=== PATIENT | female | born 1985 | race Caucasian/White ===

== ENCOUNTER 2017-08-19 08:31 | Emergency (ER) | payer OTHER ==
[2017-08-19] MEDS ORDERED: ONDANSETRON 4 MG/2 ML VIAL ONE (09:06)
[2017-08-19 09:56] LABS: Potassium 3.8 mEq/L (3.6-5.0)
[2017-08-19 09:59] LABS: Absolute Lymphocytes (CBC) 1.5 K/uL (0.7-4.9); Absolute Monocytes 0.5 K/uL (0.1-1.3); Absolute Neutrophil 6.3 K/uL (1.8-8.0); Basophils % 0.4 % (0-1.3); Eosinophils % 1.9 % (0-4.4); Hematocrit 36.3 % (36.0-45.0); Lymphocytes % 17.1 % (15.3-44.8); MCH 29.4 pg (27.0-35.0); MCV 88.2 fL (80-100); MPV 9.4 fL (7.6-11.3); Monocytes % 6.4 % (3.3-12.3); RBC Red Blood Cell Count 4.11 M/uL (3.86-4.86)
[2017-08-19] MEDS ORDERED: IBUPROFEN 400 MG TAB ONE (10:12)
--- NOTE | 2017-08-19 10:16 | ER ---
Nurse's Notes [facility] Name: Phoebe Diamond Age: 31 yrs Sex: Female : 1985 Arrival Date: 08/19/2017 Time: 08:38 Bed 16 Private MD: Unknown, Unknown Diagnosis: Insect bite (nonvenomous) of front wall of thorax-Right Upper Chest, infected;Nausea Presentation: 08/19 08:48 Presenting complaint: Patient states: stung by "large bug" Thursday 08/10. pulled out a large stinger. has felt sweats and chills since then. three days ago started getting dizzy, nausous, having diarrhea, and more sweats and chills. states the sting area is larger and slightly swollen. Transition of care: patient was not received from another setting of care. Onset of symptoms was August 10, 2017 at 06:00. Risk Assessment: Do you want to hurt yourself or someone else? Patient reports no desire to harm self or others. Initial Sepsis Screen: Does the patient meet any 2 criteria? No. Patient's initial sepsis screen is negative. Does the patient have a suspected source of infection? No. Patient's initial sepsis screen is negative. Care prior to arrival: Medication(s) given: benadryl. 08:48 Method Of Arrival: Ambulatory 08:48 Acuity: JES 3 Triage Assessment: 08:53 Bite description: bite sustained to right clavicle is pt was no bitten, was stung by an insect and they removed the stinger. was sustained 08/10 by insect unknown sting, not bitten, animal information: vaccination(s) is not applicable. General: Appears in no apparent distress. comfortable, Behavior is calm, cooperative, appropriate for age. Pain: Complains of pain in right clavicle Pain currently is 5 out of 10 on a pain scale. Pain began gradually. Neuro: No deficits noted. Cardiovascular: No deficits noted. Respiratory: Airway is patent Respiratory effort is even, unlabored, Breath sounds are clear bilaterally. Derm: Skin is intact, Skin is red, pt has small amount of swelling to R collar bone area. pt is sunburned equally on both sides of her chest. pt states she spent hours outside yesterday. Musculoskeletal: No signs and/or symptoms reported regarding the musculoskeletal system. Circulation, motion, and sensation intact. 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 - Social history:: Smoking status: Patient/guardian denies using tobacco, Patient/guardian denies using alcohol, street drugs. - Ebola Screening: : Patient negative for fever greater than or equal to 101.5 degrees Fahrenheit, and additional compatible Ebola Virus Disease symptoms Patient denies exposure to infectious person Patient denies travel to an Ebola-affected area in the 21 days before illness onset No symptoms or risks identified at this time. Screenin:00 Abuse screen: Denies threats or abuse. Denies injuries from another. Nutritional screening: No deficits noted. Tuberculosis screening: No symptoms or risk factors identified. Fall Risk None identified. Assessment: 09:00 Reassessment: Patient appears in no apparent distress at this time. No changes from previously documented assessment. Patient and/or family updated on plan of care and expected duration. Pain level reassessed. 09:37 Reassessment: Patient appears in no apparent distress at this time. No changes from previously documented assessment. Patient and/or family updated on plan of care and expected duration. Pain level reassessed. 10:33 Reassessment: Patient appears in no apparent distress at this time. Patient and/or family updated on plan of care and expected duration. Pain level reassessed. Patient is alert, oriented x 3, equal unlabored respirations, skin warm/dry/pink. Patient states feeling better. Patient states symptoms have improved. Vital Signs: 08:53 BP 137 / 90; Pulse 84; Resp 16; Temp 98.1(O); Pulse Ox 99% on R/A; Weight 81.65 kg; Height 5 ft. 6 in. (167.64 cm); Pain 6/10; 10:33 BP 121 / 78; Pulse 75; Resp 18; Temp 98.3; Pulse Ox 99% on R/A; Pain 3/10; ch 08:53 Body Mass Index 29.05 (81.65 kg, 167.64 cm) ED Course: 08:38 Patient arrived in ED. jb7 08:39 Unknown, Unknown is Private Physician. jb7 08:42 Tara Warner RN is Primary Nurse. ch 08:49 Adolfo Bruno PA is PHCP. cp 08:49 Connor Arenas MD is Attending Physician. cp 08:50 Triage completed. ch 08:53 Arm band placed on left wrist. Patient placed in an exam room, on a stretcher, on pulse ch oximetry. 09:00 Patient has correct armband on for positive identification. Placed in gown. Bed in low ch position. Call light in reach. Side rails up X 1. Pulse ox on. NIBP on. 09:00 I remote coders examination of pt upper chest area. PA does not assess or touch pt breasts. ch pt is only exposed in upper chest area. 09:37 Urine collected: clean catch specimen. Inserted saline lock: 18 gauge in right ch antecubital area, using aseptic technique. Blood collected. 10:33 IV discontinued, intact, bleeding controlled, No redness/swelling at site. Pressure ch dressing applied. Administered Medications: 09:30 Drug: Zofran 4 mg Route: IVP; Site: right antecubital; ch 10:32 Follow up: Response: No adverse reaction; Marked relief of symptoms ch 10:10 Drug: Ibuprofen 800 mg Route: PO; ch 10:32 Follow up: Response: No adverse reaction; Marked relief of symptoms ch 10:33 Not Given (other route used): Zofran 4 mg PO once ch Outcome: 10:15 Discharge ordered by MD. cp 10:33 Discharged to home ambulatory, with family. ch 10:33 Condition: stable 10:33 Discharge instructions given to patient, family, Instructed on discharge instructions, follow up and referral plans. medication usage, Demonstrated understanding of instructions, follow-up care, medications, Prescriptions given X 3. 10:34 Patient left the ED. ch Signatures: Tara Warner RN RN ch Adolfo Bruno PA PA cp Bryant, Jason jb7 Corrections: (The following items were deleted from the chart) 09:03 09:00 No provider procedures requiring assistance completed. [facility]
--- NOTE | 2017-08-19 10:16 | EDPHYS ---
Physician Documentation [facility] Name: Phoebe Diamond Age: 31 yrs Sex: Female : 1985 Arrival Date: 08/19/2017 Time: 08:38 Bed 16 Private MD: Unknown, Unknown ED Physician Connor Arenas HPI: 08/19 09:00 This 31 yrs old Female presents to ER via Ambulatory with complaints of cp Insect Bite, Nausea, Dizziness. 09:00 the patient presents with a swollen area of the right upper chest. cp 09:00 Description: erythematous, swollen, warm. Onset: The symptoms/episode began/occurred cp 08-10-2017. Possible cause(s): insect sting. Associated signs and symptoms: Pertinent positives: erythema, nausea, dizziness, Pertinent negatives: discharge, drainage. Associated signs and symptoms: Pertinent positives: chills. Severity of symptoms: in the emergency department the symptoms are actually worse, over past 3 days. 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 - Social history:: Smoking status: Patient/guardian denies using tobacco, Patient/guardian denies using alcohol, street drugs. - Ebola Screening: : Patient negative for fever greater than or equal to 101.5 degrees Fahrenheit, and additional compatible Ebola Virus Disease symptoms Patient denies exposure to infectious person Patient denies travel to an Ebola-affected area in the 21 days before illness onset No symptoms or risks identified at this time. ROS: 09:05 Constitutional: Positive for chills, Negative for fever, poor PO intake. cp 09:05 Eyes: Negative for injury, pain, redness, and discharge. cp 09:05 ENT: Negative for drainage from ear(s), ear pain, sore throat, difficulty swallowing, difficulty handling secretions. 09:05 Neck: Negative for pain with movement, pain at rest, stiffness, swollen nodes. 09:05 Cardiovascular: Negative for chest pain, edema, palpitations. 09:05 Respiratory: Negative for cough, shortness of breath, wheezing. 09:05 Abdomen/GI: Positive for nausea, Negative for abdominal pain, vomiting, diarrhea, constipation. 09:05 Skin: Positive for erythema, swelling, of the upper chest, insect bite right upper chest, Negative for diaphoresis. 09:05 Neuro: Negative for altered mental status, headache, weakness. 09:05 All other systems are negative. Exam: 09:12 Constitutional: The patient appears in no acute distress, alert, awake, non-toxic, well cp developed, well nourished. 09:12 Head/Face: Normocephalic, atraumatic. cp 09:12 Eyes: Pupils equal round and reactive to light, extra-ocular motions intact. Lids and lashes normal. Conjunctiva and sclera are non-icteric and not injected. Cornea within normal limits. Periorbital areas with no swelling, redness, or edema. ENT: Nares patent. No nasal discharge, no septal abnormalities noted. Tympanic membranes are normal and external auditory canals are clear. Oropharynx with no redness, swelling, or masses, exudates, or evidence of obstruction, uvula midline. Mucous membranes moist. 09:12 Neck: ROM/movement: is normal, is supple, no range of motions limitations, no meningismus, no nuchal rigidity. 09:12 Chest/axilla: Inspection: abscess, is not appreciated, noted erythema, skin warm to cp touch of upper chest. 09:12 Cardiovascular: Rate: normal, Rhythm: regular. cp 09:12 Respiratory: the patient does not display signs of respiratory distress, Respirations: normal, no use of accessory muscles, no retractions, no splinting, no tachypnea, labored breathing, is not present, Breath sounds: are clear throughout, no decreased breath sounds, no stridor, no wheezing. 09:12 Abdomen/GI: Inspection: abdomen appears normal, Bowel sounds: active, all quadrants, Palpation: abdomen is soft and non-tender, in all quadrants, rebound tenderness, is not appreciated, voluntary guarding, is not appreciated, involuntary guarding, is not appreciated. 09:12 Back: pain, is absent, ROM is normal. 09:12 Musculoskeletal/extremity: Exam is negative for calf tenderness, decreased range of motion, deformity, injury. 09:12 Neuro: Orientation: to person, place \T\ time. Mentation: lucid, able to follow commands, Motor: moves all fours, strength is normal, Sensation: no obvious gross deficits, Gait: is steady, at a normal pace, without difficulty. Vital Signs: 08:53 BP 137 / 90; Pulse 84; Resp 16; Temp 98.1(O); Pulse Ox 99% on R/A; Weight 81.65 kg; ch Height 5 ft. 6 in. (167.64 cm); Pain 6/10; 10:33 BP 121 / 78; Pulse 75; Resp 18; Temp 98.3; Pulse Ox 99% on R/A; Pain 3/10; ch 08:53 Body Mass Index 29.05 (81.65 kg, 167.64 cm) ch MDM: 08:49 Patient medically screened. cp 10:00 Differential diagnosis: abscess, allergic reaction, cellulitis, insect bite, sunburn. cp 10:14 Data reviewed: vital signs, nurses notes, lab test result(s). cp 10:14 Counseling: I had a detailed discussion with the patient and/or guardian regarding: the cp historical points, exam findings, and any diagnostic results supporting the discharge/admit diagnosis, lab results, the need for outpatient follow up, a family practitioner, to return to the emergency department if symptoms worsen or persist or if there are any questions or concerns that arise at home. Response to treatment: the patient's symptoms have mildly improved after treatment, and as a result, I will discharge patient. 08/19 08:58 Order name: CBC with Diff; Complete Time: 10:10 cp 08/19 10:10 Interpretation: Normal except: JAZMIN% 74.2. cp 08/19 08:58 Order name: BMP; Complete Time: 10:10 cp 08/19 10:10 Interpretation: Normal except: GFR 86. cp 08/19 09:01 Order name: Magnesium; Complete Time: 10:10 cp 08/19 09:51 Order name: Urine Dipstick--Ancillary (enter results) bd 08/19 09:51 Order name: Urine --Ancillary (enter results) bd 08/19 08:58 Order name: Urine Dipstick-Ancillary (obtain specimen); Complete Time: 09:38 cp 08/19 08:58 Order name: Urine Test (obtain specimen); Complete Time: 09:38 cp Administered Medications: 09:30 Drug: Zofran 4 mg Route: IVP; Site: right antecubital; ch 10:32 Follow up: Response: No adverse reaction; Marked relief of symptoms ch 10:10 Drug: Ibuprofen 800 mg Route: PO; ch 10:32 Follow up: Response: No adverse reaction; Marked relief of symptoms ch 10:33 Not Given (other route used): Zofran 4 mg PO once ch Disposition: 13:36 Co-signature as Attending Physician, Connor Arenas MD. rn 08/20 07:17 Co-signature as Attending Physician, Connor Arenas MD. rn Disposition: 08/19/17 10:15 Discharged to Home. Impression: Insect bite (nonvenomous) of front wall of thorax - Right Upper Chest, infected, Nausea. - Condition is Stable. - Discharge Instructions: Cellulitis, Nausea, Adult. - Prescriptions for Ibuprofen 800 mg Oral Tablet - take 1 tablet by ORAL route every 8 hours As needed take with food; 30 tablet. Keflex 500 mg Oral Capsule - take 1 capsule by ORAL route every 6 hours for 10 days; 40 capsule. Zofran 4 mg Oral Tablet - take 1 tablet by ORAL route every 12 hours As needed; 20 tablet. - Work release form, Medication Reconciliation Form, Thank You Letter, Antibiotic Education, Prescription Opioid Use form. - Follow up: Private Physician; When: 48 Hours; Reason: Recheck today's complaints. - Problem is new. - Symptoms have improved. Signatures: Dispatcher [employer] Tara Lamb RN RN Connor Quintana MD MD rn Page, Corey, PA PA cp Corrections: (The following items were deleted from the chart) 08/19 10:34 10:15 08/19/2017 10:15 Discharged to Home. Impression: Insect bite (nonvenomous) of ch front wall of thorax - Right Upper Chest, infected; Nausea. Condition is Stable. Forms are Medication Reconciliation Form, Thank You Letter, Antibiotic Education, Prescription Opioid Use. Follow up: Private Physician; When: 48 Hours; Reason: Recheck today's complaints. Problem is new. Symptoms have improved. cp
[2017-08-19 10:37] VITALS: O2SAT 99
[2017-08-19 10:38] VITALS: BP 121/78; TEMP 98.3
[2017-08-19 12:02] LABS: Urine Blood NEGATIVE (NEG); Urine Glucose NEGATIVE (NEG); Urine Protein NEGATIVE (NEG)
== END 2017-08-19 10:34 | disposition home or self-care (01) ==
LOC: ER 08:31
DX: S20.361A Insect bite (nonvenomous) of right front wall of thorax, initial encounter (principal); L03.313 Cellulitis of chest wall; Z91.048 Other nonmedicinal substance allergy status; M10.9 Gout, unspecified; I10 Essential (primary) hypertension; Z87.442 Personal history of urinary calculi; W57.XXXA Bitten or stung by nonvenomous insect and other nonvenomous arthropods, initial encounter; Y92.019 Unspecified place in single-family (private) house as the place of occurrence of the external cause; R11.0 Nausea
CPT/HCPCS: 36415; 80048; 81003; 81025; 83735; 85025; 96374; 99284; J2405

== ENCOUNTER 2017-11-23 17:06 | Emergency (ER) | payer OTHER, SELFPAY ==
[2017-11-23 18:00] LABS: Absolute Lymphocytes (CBC) 2.5 K/uL (0.7-4.9); Absolute Monocytes 0.6 K/uL (0.1-1.3); Absolute Neutrophil 3.6 K/uL (1.8-8.0); Basophils % 0.9 % (0-1.3); Eosinophils % 3.4 % (0-4.4); Hematocrit 38.6 % (36.0-45.0); Lymphocytes % 36.1 % (15.3-44.8); MCH 29.6 pg (27.0-35.0); MPV 9.4 fL (7.6-11.3); RBC Red Blood Cell Count 4.44 M/uL (3.86-4.86)
[2017-11-23 18:11] LABS: Protime INR 1.05
[2017-11-23 18:14] LABS: Magnesium 2.2 mg/dL (1.8-2.4); Potassium 3.8 mmol/L (3.5-5.1)
--- NOTE | 2017-11-23 18:20 | RAD REPORT ---
EXAM DESCRIPTION: CT - Head Brain Wo Cont - 11/23/2017 6:02 pm CLINICAL HISTORY: Headache, weakness, dizziness COMPARISON: CT head November 2015 TECHNIQUE: Axial 5 mm thick images of the head were obtained without IV contrast. All CT scans are performed using dose optimization technique as appropriate and may include automated exposure control or mA/KV adjustment according to patient size. FINDINGS: No intracranial hemorrhage, mass, edema or shift of mid-line structures. No acute infarcti on changes seen. No abnormal extra-axial fluid collections. Ventricles are normal. Mastoid air cells are clear. Paranasal sinuses are clear except for left side sphenoid sinus mucosal thickening. No acute bony findings. IMPRESSION: Negative non-contrast CT head examination for acute finding. Mucosal thickening seen in a small left-sided sphenoid sinus. No intracranial changes from 2016.
[2017-11-23] MEDS ORDERED: ONDANSETRON 4 MG/2 ML VIAL ONE (18:24)
[2017-11-23] MEDS ORDERED: METOCLOPRAMIDE 10 MG/2mL INJ ONE (18:25)
[2017-11-23] MEDS ORDERED: DEXAMETHASONE 4 MG/ML VIAL ONE (18:26)
[2017-11-23 19:02] LABS: Urine Blood NEGATIVE (NEG); Urine Glucose NEGATIVE (NEG); Urine Protein NEGATIVE (NEG); Urine Specific Gravity 1.025 (1.005-1.030)
--- NOTE | 2017-11-23 19:30 | RAD REPORT ---
EXAM DESCRIPTION: CT - Head angio - 11/23/2017 7:07 pm CLINICAL HISTORY: Headache COMPARISON: CT head same date TECHNIQUE: During dynamic enhancement using nonionic IV contrast, axial 1 millimeter thick images of the head were obtained. Sagittal and coronal reformatted images were generated using maximum intensi ty projection protocol and reviewed FINDINGS: Distal vertebral artery and basilar artery show no suspicious findings. No suspicious find ing in the posterior cerebral artery distributions. From skullbase to determine a [place] the bilateral internal carotid arteries show no dissection or acute finding. No aneurysm or vascular malformation. Anterior and middle cerebral artery distribution show no suspicious findings. Major venous sinuses show no thrombosis or other suspicious finding. IMPRESSION: Negative CTA head examination.
--- NOTE | 2017-11-23 20:21 | EDPHYS ---
Physician Documentation [facility] Name: Phoebe Diamond Age: 32 yrs Sex: Female : 1985 Arrival Date: 11/23/2017 Time: 17:07 Bed 26 Private MD: GRICELDA RHODES ED Physician Connor Arenas HPI: 11/23 17:46 This 32 yrs old Female presents to ER via Ambulatory with complaints of cp Dizziness, Headache, Fall. 17:50 The patient complains of pain to the left rastafarian and left temporal area and left cp frontal area. 17:50 The patient describes the headache as constant. Onset: The symptoms/episode cp began/occurred yesterday. Associated signs and symptoms: Pertinent positives: dizziness, Photophobia Pertinent negatives: altered mental status, fever, neck stiffness, paresthesias, sinus congestion, sinus tenderness, vision loss, weakness. Severity of symptoms: in the emergency department the pain a " 10" out of "10". Headache History: The patient has had previous headaches and this one is more severe than previous episodes. 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 - Social history:: Smoking status: Patient/guardian denies using tobacco. - Ebola Screening: : Patient denies travel to an Ebola-affected area in the 21 days before illness onset. ROS: 17:53 Constitutional: Negative for body aches, chills, fever, poor PO intake. cp 17:53 Eyes: Positive for photophobia, Negative for discharge, redness, vision loss. cp 17:53 ENT: Negative for drainage from ear(s), ear pain, sinus congestion, sinus pain, difficulty swallowing, difficulty handling secretions. 17:53 Neck: Negative for pain with movement, pain at rest, stiffness, swollen nodes, tenderness. 17:53 Cardiovascular: Negative for chest pain, edema, palpitations. 17:53 Respiratory: Negative for cough, shortness of breath, wheezing. 17:53 Abdomen/GI: Negative for abdominal pain, vomiting, diarrhea, constipation, anorexia, black/tarry stool, rectal bleeding. 17:53 Back: Negative for pain at rest, pain with movement. 17:53 : Negative for urinary symptoms, flank pain. 17:53 Skin: Negative for cellulitis, rash. 17:53 Neuro: Positive for dizziness, headache, Negative for altered mental status, numbness, weakness. 17:53 All other systems are negative. Exam: 18:00 Constitutional: The patient appears in no acute distress, alert, awake, cp non-diaphoretic, non-toxic, well developed, well nourished. 18:00 Head/Face: Normocephalic, atraumatic. Eyes: Pupils equal round and reactive to light, cp extra-ocular motions intact. Lids and lashes normal. Conjunctiva and sclera are non-icteric and not injected. Cornea within normal limits. Periorbital areas with no swelling, redness, or edema. ENT: Nares patent. No nasal discharge, no septal abnormalities noted. Tympanic membranes are normal and external auditory canals are clear. Oropharynx with no redness, swelling, or masses, exudates, or evidence of obstruction, uvula midline. Mucous membranes moist. Neck: Trachea midline, no thyromegaly or masses palpated, and no cervical lymphadenopathy. Supple, full range of motion without nuchal rigidity, or vertebral point tenderness. No Meningismus. Chest/axilla: Normal chest wall appearance and motion. Nontender with no deformity. No lesions are appreciated. 18:00 Cardiovascular: Rate: normal, Rhythm: regular, Pulses: Pulses are 2+ in right radial artery and left radial artery. Edema: is not appreciated, JVD: is not appreciated. 18:00 Respiratory: the patient does not display signs of respiratory distress, Respirations: normal, no use of accessory muscles, no retractions, no splinting, no tachypnea, labored breathing, is not present, Breath sounds: are clear throughout, no decreased breath sounds, no stridor, no wheezing. 18:00 Abdomen/GI: Inspection: abdomen appears normal, Bowel sounds: active, all quadrants, Palpation: abdomen is soft and non-tender, in all quadrants. 18:00 Back: pain, is absent, ROM is normal. 18:00 Skin: cellulitis, is not appreciated, no rash present. 18:00 Neuro: Orientation: to person, place \\T\\ time. Mentation: lucid, able to follow commands, Cerebellar function: Romberg testing is negative, normal finger to nose testing, Motor: moves all fours, strength is normal, Sensation: is normal. 18:22 ECG was reviewed by the Attending Physician. cp Vital Signs: 17:20 BP 155 / 106; Pulse 75; Resp 18; Temp 97.8; Pulse Ox 100% on R/A; Weight 82.55 kg (R); aj1 Height 5 ft. 6 in. (167.64 cm) (R); Pain 10/10; 17:58 BP 163 / 103 Supine; Pulse 83; rv 17:58 BP 171 / 105 Sitting; Pulse 63; rv 17:58 BP 177 / 111 Standing; Pulse 64; rv 18:42 BP 128 / 79; Pulse 63; Pulse Ox 99% on R/A; rv 19:15 BP 169 / 116; Pulse 70; Pulse Ox 100% ; rv 20:29 BP 134 / 99; Pulse 69; Pulse Ox 98% on R/A; rv 17:20 Body Mass Index 29.38 (82.55 kg, 167.64 cm) aj1 MDM: 17:34 Patient medically screened. cp 18:00 Differential diagnosis: cluster headache, cerebral vascular accident, hyponatremia, cp intracerebral hemorrhage, meningitis, meningoencephalitis, migraine, neoplasm, otitis, sinusitis, subarachnoid bleed, tension headache. 20:19 Data reviewed: vital signs, nurses notes, lab test result(s), radiologic studies, CT cp scan. 20:19 Counseling: I had a detailed discussion with the patient and/or guardian regarding: the cp historical points, exam findings, and any diagnostic results supporting the discharge/admit diagnosis, lab results, radiology results, to return to the emergency department if symptoms worsen or persist or if there are any questions or concerns that arise at home. Counseling: I had a detailed discussion with the patient and/or guardian regarding: the presence of at least one elevated blood pressure reading (>120/80) during this emergency department visit, the need for outpatient follow up, a family practitioner. Response to treatment: the patient's symptoms have markedly improved after treatment. ED course: VSS. Headache markedly improved. Blood pressure improved. Will discharge to home for continued monitoring. 11/23 17:45 Order name: BMP cp 11/23 17:45 Order name: CBC with Diff cp 11/23 17:45 Order name: PT-INR cp 11/23 17:45 Order name: Ptt, Activated cp 11/23 17:45 Order name: Magnesium cp 11/23 17:46 Order name: Basic Metabolic Panel; Complete Time: 18:21 EDMS 11/23 17:44 Order name: CT Head Brain wo Cont; Complete Time: 18:21 cp 11/23 18:22 Interpretation: Report reviewed. cp 11/23 17:46 Order name: CBC with Automated Diff; Complete Time: 18:21 EDMS 11/23 17:46 Order name: Protime (+INR); Complete Time: 18:21 EDMS 11/23 17:46 Order name: PTT, Activated Partial Thromb; Complete Time: 18:21 EDMS 11/23 17:46 Order name: Magnesium; Complete Time: 18:21 EDMS 11/23 18:42 Order name: Head angio; Complete Time: 19:42 EDMS 11/23 19:43 Interpretation: Report reviewed. cp 11/23 18:45 Order name: Urine Dipstick--Ancillary (enter results); Complete Time: 19:42 bd 11/23 19:42 Interpretation: Normal except: UESTR TRACE. cp 11/23 18:45 Order name: Urine --Ancillary (enter results); Complete Time: 19:42 bd 11/23 17:44 Order name: Urine Dipstick-Ancillary (obtain specimen); Complete Time: 18:16 cp 11/23 17:44 Order name: Urine Test (obtain specimen); Complete Time: 18:16 cp 11/23 17:44 Order name: Orthostatics; Complete Time: 18:00 cp 11/23 17:44 Order name: EKG; Complete Time: 17:45 cp 11/23 17:44 Order name: EKG - Nurse/Tech; Complete Time: 18:00 cp 11/23 17:45 Order name: IV; Complete Time: 17:50 cp EC:22 Rate is 56 beats/min. Rhythm is regular. OK interval is normal. QRS interval is normal. cp QT interval is normal. Interpreted by me. Reviewed by me. Administered Medications: 18:00 Drug: NS 0.9% 1000 ml Route: IV; Rate: 1 bolus; Site: left forearm; rv 18:38 Drug: Decadron - Dexamethasone 10 mg Route: IVP; Site: right forearm; rv 19:52 Follow up: Response: No adverse reaction rv 18:39 Drug: Reglan 20 mg Route: IVP; Site: right forearm; rv 20:27 Follow up: Response: No adverse reaction rv 18:39 Drug: Zofran 4 mg Route: IVP; Site: right forearm; rv 20:27 Follow up: Response: No adverse reaction rv 20:01 Not Given (Physician Discretion): cloNIDine 0.1 mg PO once cp 20:01 Not Given (Physician Discretion): Norvasc 10 mg PO once cp 20:27 Drug: Meclizine 25 mg Route: PO; rv 20:28 Follow up: Response: Medication administered at discharge. rv Disposition: 21:00 Chart complete. 11/24 07:00 Co-signature as Attending Physician, Connor Arenas MD. rn Disposition: 11/23/17 20:20 Discharged to Home. Impression: Dizziness and giddiness, Headache. - Condition is Stable. - Discharge Instructions: Dizziness, General Headache Without Cause, How to Take Your Blood Pressure, [id number], Form - Blood Pressure Record Sheet. - Prescriptions for Fiorinal 50- 325-40 mg Oral Capsule - take 1 capsule by ORAL route every 4 hours As needed - not to exceed 6 capsules per day; 20 capsule. Meclizine 25 mg Oral Tablet - take 1 tablet by ORAL route every 8 hours As needed; 30 tablet. Zofran 4 mg Oral Tablet - take 1 tablet by ORAL route every 12 hours As needed; 20 tablet. - Medication Reconciliation Form, Thank You Letter, Antibiotic Education, Prescription Opioid Use form. - Follow up: GRICELDA RHODES; When: Tomorrow; Reason: Recheck today's complaints. - Problem is new. - Symptoms have improved. Signatures: Dispatcher [employer] Bárbara Deluca RN RN aj1 Connor Arenas MD MD rn Page, Corey, PA PA cp Vicente, Ronaldo, RN RN rv Corrections: (The following items were deleted from the chart) 11/23 20:31 20:20 11/23/2017 20:20 Discharged to Home. Impression: Dizziness and giddiness; rv Headache. Condition is Stable. Forms are Medication Reconciliation Form, Thank You Letter, Antibiotic Education, Prescription Opioid Use. Follow up: GRICELDA RHODES; When: Tomorrow; Reason: Recheck today's complaints. Problem is new. Symptoms have improved. cp
--- NOTE | 2017-11-23 20:21 | ER ---
Nurse's Notes [facility] Name: Hayden Diamond Age: 32 yrs Sex: Female : 1985 Arrival Date: 11/23/2017 Time: 17:07 Bed 26 Private MD: GRICELDA RHODES Diagnosis: Dizziness and giddiness;Headache Presentation: 11/23 17:16 Presenting complaint: Patient states: She has been feeling dizzy for the past week and aj1 a half and she has had a headache since 1500 yesterday. Patient denies any head injury. Patient states that she has fallen twice today because of the dizziness. Denies N/V/D. Reports blurred vision. Denies weakness. Site Leader are equal bilaterally, Gait is steady. Transition of care: patient was not received from another setting of care. Onset of symptoms was November 22, 2017 at 15:00. Risk Assessment: Do you want to hurt yourself or someone else? Patient reports no desire to harm self or others. Initial Sepsis Screen: Does the patient meet any 2 criteria? No. Patient's initial sepsis screen is negative. Does the patient have a suspected source of infection? No. Patient's initial sepsis screen is negative. Care prior to arrival: None. 17:16 Method Of Arrival: Ambulatory aj 17:16 Acuity: JES 3 aj1 Triage Assessment: 17:20 Headache History: Denies prior headaches. General: Appears in no apparent distress. aj1 uncomfortable, Behavior is calm, cooperative, appropriate for age. Pain: Complains of pain in left frontal area, left temporal area and left jehovah's witness Pain does not radiate. Pain currently is 10 out of 10 on a pain scale. Pain began 1 day ago. Also complains of photophobia, sleeplessness. Neuro: Level of Consciousness is awake, alert, obeys commands, Oriented to person, place, time, situation, Site Leader are equal bilaterally Moves all extremities. Full function Gait is steady, Speech is normal, Facial symmetry appears normal, Reports blurred vision dizziness, headache. Cardiovascular: Patient's skin is warm and dry. Respiratory: Airway is patent Respiratory effort is even, unlabored, Respiratory pattern is regular, symmetrical. 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 - Social history:: Smoking status: Patient/guardian denies using tobacco. - Ebola Screening: : Patient denies travel to an Ebola-affected area in the 21 days before illness onset. Screenin:30 Abuse screen: Denies threats or abuse. Denies injuries from another. rv 17:30 Nutritional screening: No deficits noted. Tuberculosis screening: No symptoms or risk rv factors identified. Fall Risk None identified. Assessment: 17:30 General: Appears in no apparent distress. uncomfortable, Behavior is calm, cooperative. rv 17:30 Pain: Complains of pain in head. Neuro: Level of Consciousness is awake, alert, obeys rv commands, Oriented to person, place, time, situation. Cardiovascular: Capillary refill < 3 seconds. Respiratory: Airway is patent. GI: No signs and/or symptoms were reported involving the gastrointestinal system. : No signs and/or symptoms were reported regarding the genitourinary system. EENT: No signs and/or symptoms were reported regarding the EENT system. Derm: Skin is intact. 18:42 Reassessment: Patient appears in no apparent distress at this time. Patient and/or rv family updated on plan of care and expected duration. Pain level reassessed. Patient is alert, oriented x 3, equal unlabored respirations, skin warm/dry/pink. 19:16 Reassessment: Patient appears in no apparent distress at this time. Patient and/or rv family updated on plan of care and expected duration. Pain level reassessed. Patient is alert, oriented x 3, equal unlabored respirations, skin warm/dry/pink. Vital Signs: 17:20 BP 155 / 106; Pulse 75; Resp 18; Temp 97.8; Pulse Ox 100% on R/A; Weight 82.55 kg (R); aj1 Height 5 ft. 6 in. (167.64 cm) (R); Pain 10/10; 17:58 BP 163 / 103 Supine; Pulse 83; rv 17:58 BP 171 / 105 Sitting; Pulse 63; rv 17:58 BP 177 / 111 Standing; Pulse 64; rv 18:42 BP 128 / 79; Pulse 63; Pulse Ox 99% on R/A; rv 19:15 BP 169 / 116; Pulse 70; Pulse Ox 100% ; rv 20:29 BP 134 / 99; Pulse 69; Pulse Ox 98% on R/A; rv 17:20 Body Mass Index 29.38 (82.55 kg, 167.64 cm) aj1 ED Course: 17:07 Patient arrived in ED. sb2 17:08 GRICELDA RHODES is Private Physician. sb2 17:19 Triage completed. aj1 17:20 Arm band placed on Patient placed in waiting room. aj1 17:30 Patient has correct armband on for positive identification. Bed in low position. Call rv light in reach. Side rails up X 1. Adult w/ patient. Pulse ox on. NIBP on. 17:34 Adolfo Bruno PA is PHCP. cp 17:34 Connor Arenas MD is Attending Physician. cp 18:00 Inserted saline lock: 20 gauge in right forearm, using aseptic technique. rv 18:01 CT Head Brain wo Cont In Process Unspecified. EDMS 18:02 CT completed. Patient tolerated procedure well. Patient moved back from CT. bq 18:15 Urine collected: clean catch specimen, clear, hayden colored, Amount Voided: 60mL. jp3 18:50 Urine --Ancillary (enter results) Sent. jp3 18:50 Urine Dipstick--Ancillary (enter results) Sent. jp3 19:08 CT completed. Patient tolerated procedure well. Patient moved back from CT. bq 19:08 Head angio In Process Unspecified. EDMS 20:20 GRICELDA RHODES is Referral Physician. cp 20:29 Magnesium Sent. rv 20:31 IV discontinued, bleeding controlled, No redness/swelling at site. Pressure dressing rv applied. 20:31 No provider procedures requiring assistance completed. rv Administered Medications: 18:00 Drug: NS 0.9% 1000 ml Route: IV; Rate: 1 bolus; Site: left forearm; rv 18:38 Drug: Decadron - Dexamethasone 10 mg Route: IVP; Site: right forearm; rv 19:52 Follow up: Response: No adverse reaction rv 18:39 Drug: Reglan 20 mg Route: IVP; Site: right forearm; rv 20:27 Follow up: Response: No adverse reaction rv 18:39 Drug: Zofran 4 mg Route: IVP; Site: right forearm; rv 20:27 Follow up: Response: No adverse reaction rv 20:01 Not Given (Physician Discretion): cloNIDine 0.1 mg PO once cp 20:01 Not Given (Physician Discretion): Norvasc 10 mg PO once cp 20:27 Drug: Meclizine 25 mg Route: PO; rv 20:28 Follow up: Response: Medication administered at discharge. rv Outcome: 20:20 Discharge ordered by MD. cp 20:30 Discharged to home ambulatory. rv 20:30 Condition: improved 20:30 Discharge instructions given to patient, Instructed on discharge instructions, follow up and referral plans. medication usage, Demonstrated understanding of instructions, follow-up care, medications, Prescriptions given X 3. 20:31 Patient left the ED. rv Signatures: Dispatcher [employer] EDMS Bárbara Hong RN RN aj1 Andria Nick bq Adolfo Bruno PA PA cp [place] sb2 Carmine Hurley RN RN rv Danilo Ramirez jp3 Corrections: (The following items were deleted from the chart) 18:39 18:38 Zofran 4 mg IVP in right femoral rv rv
[2017-11-23] MEDS ORDERED: MECLIZINE HCL 12.5 MG TAB ONE (20:29)
[2017-11-23 20:41] VITALS: TEMP 97.8
[2017-11-23 20:46] VITALS: BP 134/99; O2SAT 98
--- NOTE | 2017-11-24 07:02 | EKG ---
Test Date: 2017-11-23 Test Time: 18:10:58 Byproducts Operator: MEASUREMENT RESULTS: Intervals: Rate: 56 MS: 140 QRSD: 90 QT: 410 QTc: 395 [place]: P: 20 MS: 140 QRS: 37 T: 49 INTERPRETIVE STATEMENTS: Sinus bradycardia with sinus arrhythmia Otherwise normal ECG Compared to ECG 05/29/2017 19:53:22 Sinus tachycardia no longer present Electronically Signed On 11-24-17 07:01:06 CDT by Buster Mayen
== END 2017-11-23 20:31 | disposition home or self-care (01) ==
LOC: ER 17:06
DX: R51 Headache (principal); R42 Dizziness and giddiness; M10.9 Gout, unspecified; I10 Essential (primary) hypertension; Z91.048 Other nonmedicinal substance allergy status
CPT/HCPCS: 36415; 70450; 70496; 80048; 81003; 81025; 83735; 85025; 85610; 85730; 93005; 96374; 96375; 99284; J2405; J2765; Q9967

== ENCOUNTER 2018-01-12 08:56 | Emergency (ER) | payer OTHER, SELFPAY ==
[2018-01-12] MEDS ORDERED: ONDANSETRON 4 MG/2 ML VIAL ONE (11:08)
[2018-01-12] MEDS ORDERED: MEPERIDINE HCL 50 MG/ML AMP ONE (11:08)
[2018-01-12] MEDS ORDERED: NA CHLORIDE 0.9% 1,000 ML ONE (11:09)
[2018-01-12 11:13] LABS: Urine Blood NEGATIVE (NEG); Urine Glucose NEGATIVE (NEG); Urine Protein NEGATIVE (NEG); Urine Specific Gravity 1.025 (1.005-1.030); Urine pH 7.5 (5.0-7.0)
[2018-01-12 11:31] LABS: Absolute Lymphocytes (CBC) 1.4 K/uL (0.7-4.9); Absolute Monocytes 0.7 K/uL (0.1-1.3); Absolute Neutrophil 10.2 K/uL (1.8-8.0); Basophils % 0.2 % (0-1.3); Eosinophils % 0.6 % (0-4.4); Hematocrit 38.1 % (36.0-45.0); Lymphocytes % 11.3 % (15.3-44.8); MCV 86.8 fL (80-100); MPV 9.1 fL (7.6-11.3); Monocytes % 5.6 % (3.3-12.3); RBC Red Blood Cell Count 4.39 M/uL (3.86-4.86)
[2018-01-12 11:58] LABS: Albumin 3.9 g/dL (3.4-5.0); Bilirubin Direct 0.2 mg/dL (0-0.2); Bilirubin Total 0.5 mg/dL (0.2-1.0); Potassium 3.8 mmol/L (3.5-5.1)
--- NOTE | 2018-01-12 12:34 | RAD REPORT ---
EXAM DESCRIPTION: CTAbdomen Pelvis W Contrast - 01/12/2018 12:24 pm CLINICAL HISTORY: Abdominal pain. iv only;Abd pain COMPARISON: Abdomen Pelvis W Contrast dated 12/10/2016; Abdomen Pelvis W Contrast dated 05/08/2016 ; Abdomen Pelvis W Contrast dated 06/13/2015; CT ABD PELVIS W CONTRAST dated 01/19/2009 TECHNIQUE: Biphasic CT imaging of the abdomen and pelvis was performed with 100 ml non-ionic IV cont rast. All CT scans are performed using dose optimization technique as appropriate and may include automated exposure control or mA/KV adjustment according to patient size. FINDINGS: The lung bases are clear. The liver, spleen, pancreas, adrenal glands and right kidney are within normal limits. Punctate left nephrolithiasis without hydronephrosis. No bowel obstruction, free air or abscess. The appendix is normal. No evidence of significant lymph adenopathy. Mild slightly dense fluid is seen in the pelvis and right lower quadrant. No suspicious bony findings. IMPRESSION: Mild, slightly dense, free fluid in the pelvis and right lower quadrant the suspicious f or recent cyst rupture. Punctate left nephrolithiasis without hydronephrosis.
[2018-01-12] MEDS ORDERED: MEPERIDINE HCL 25 MG/0.5 ML ONE (13:12)
--- NOTE | 2018-01-12 13:55 | RAD REPORT ---
EXAM DESCRIPTION: US - Transvaginal Study Probe - 01/12/2018 1:39 pm CLINICAL HISTORY: Abdominal pain, pelvic pain Preliminary findings provided at the time of the study. COMPARISON: CT study January 12 TECHNIQUE: Endovaginal sonography was performed. FINDINGS: Endometrial stripe is 8 mm in thickness. No focal endometrial mass or polyp seen. Nabothia n cysts are present. Trace amount of fluid in the cervical canal is probably old blood. No focal zac alok. No myometrial mass identified. Uterus is 9.2 x 4.3 x 4.4 cm. Minimal free fluid is present in t he cul-de-sac. This has echogenicity that suggest at least partially made up of hemorrhagic material. There is a 2.3 centimeter complex left ovarian cyst. Dick are ill-defined. A ruptured or involuting left ovarian cyst is most likely. This is also the most likely source for the small amount of hemorrh age. No solid mass in the left ovary. Small sub centimeter follicles seen in the right ovary which is positioned posterior right margin of the uterus. Doppler evaluation shows blood flow in the ovarian stroma. Torsion is not suspected. No fallopian tube dilatation or suspicious adnexal mass. IMPRESSION: No torsion suspected in either ovary. Complex 2.3 centimeter left ovarian cyst. This is most likely a partially collapsed, hemorrhagic cyst . Small amount of blood in the cul-de-sac likely due to the left ovarian cyst rupture. No suspicious uterine finding.
--- NOTE | 2018-01-12 14:13 | EDPHYS ---
Physician Documentation [facility] Name: Phoebe Diamond Age: 32 yrs Sex: Female : 1985 Arrival Date: 01/12/2018 Time: 08:57 Bed 16 Private MD: ED Physician Adolfo Espinosa HPI: 01/12 11:07 This 32 yrs old Female presents to ER via Wheelchair with complaints of jr8 Abdominal Pain. 11:07 The patient presents with abdominal pain in the lower abdomen. Onset: The jr8 symptoms/episode began/occurred acutely, today. The symptoms do not radiate. Associated signs and symptoms: Pertinent positives: diarrhea, nausea, rectal pain. The symptoms are described as stabbing. Modifying factors: The symptoms are alleviated by nothing, the symptoms are aggravated by nothing. Severity of pain: At its worst the pain was moderate in the emergency department the pain is unchanged. The patient has not experienced similar symptoms in the past. The patient has not recently seen a physician. 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 - Social history:: Smoking status: . - Ebola Screening: : Patient negative for fever greater than or equal to 101.5 degrees Fahrenheit, and additional compatible Ebola Virus Disease symptoms Patient denies exposure to infectious person Patient denies travel to an Ebola-affected area in the 21 days before illness onset No symptoms or risks identified at this time. ROS: 11:07 Eyes: Negative for injury, pain, redness, and discharge, ENT: Negative for injury, jr8 pain, and discharge, Neck: Negative for injury, pain, and swelling, Cardiovascular: Negative for chest pain, palpitations, and edema, Respiratory: Negative for shortness of breath, cough, wheezing, and pleuritic chest pain, Back: Negative for injury and pain, MS/Extremity: Negative for injury and deformity, Skin: Negative for injury, rash, and discoloration, Neuro: Negative for headache, weakness, numbness, tingling, and seizure. 11:07 Abdomen/GI: Positive for abdominal pain, nausea, diarrhea, rectal pain, Negative for vomiting, abdominal distension, anorexia, dysphagia, hematemesis, black/tarry stool, rectal bleeding, bowel incontinence, flatulence. Exam: 11:07 Eyes: Pupils equal round and reactive to light, extra-ocular motions intact. Lids and jr8 lashes normal. Conjunctiva and sclera are non-icteric and not injected. Cornea within normal limits. Periorbital areas with no swelling, redness, or edema. ENT: Nares patent. No nasal discharge, no septal abnormalities noted. Tympanic membranes are normal and external auditory canals are clear. Oropharynx with no redness, swelling, or masses, exudates, or evidence of obstruction, uvula midline. Mucous membranes moist. Neck: Trachea midline, no thyromegaly or masses palpated, and no cervical lymphadenopathy. Supple, full range of motion without nuchal rigidity, or vertebral point tenderness. No Meningismus. Cardiovascular: Regular rate and rhythm with a normal S1 and S2. No gallops, murmurs, or rubs. Normal PMI, no JVD. No pulse deficits. Respiratory: Lungs have equal breath sounds bilaterally, clear to auscultation and percussion. No rales, rhonchi or wheezes noted. No increased work of breathing, no retractions or nasal flaring. Back: No spinal tenderness. No costovertebral tenderness. Full range of motion. Skin: Warm, dry with normal turgor. Normal color with no rashes, no lesions, and no evidence of cellulitis. MS/ Extremity: Pulses equal, no cyanosis. Neurovascular intact. Full, normal range of motion. Neuro: Awake and alert, GCS 15, oriented to person, place, time, and situation. Cranial nerves II-XII grossly intact. Motor strength 5/5 in all extremities. Sensory grossly intact. Cerebellar exam normal. Normal gait. 11:07 Abdomen/GI: Inspection: abdomen appears normal, Bowel sounds: active, all quadrants, Palpation: soft, in all quadrants, moderate abdominal tenderness, in the suprapubic area, left lower quadrant, and mid low abdomen , mass, is not appreciated, rebound tenderness, is not appreciated, voluntary guarding, is not appreciated, involuntary guarding, is not appreciated, no appreciated organomegaly, Indicators: McBurney's point is not tender, Glynn's sign is negative, Rovsing's sign is negative, Liver: no appreciated palpable abnormalities, tenderness, is not appreciated. Vital Signs: 09:05 BP 148 / 97; Pulse 72; Resp 18; Temp 97.1; Pulse Ox 100% on R/A; Weight 83.91 kg; ph Height 5 ft. 6 in. (167.64 cm); Pain 10/10; 11:30 BP 138 / 78; Pulse 61; Resp 16; Pulse Ox 98% on R/A; Pain 8/10; hb 12:30 BP 136 / 76; Pulse 66; Resp 15; Pulse Ox 100% on R/A; hb 13:45 BP 128 / 68; Pulse 64; Resp 15; Pulse Ox 100% on R/A; hb 09:05 Body Mass Index 29.86 (83.91 kg, 167.64 cm) ph MDM: 10:04 Patient medically screened. jr8 14:09 Data reviewed: vital signs, nurses notes, lab test result(s), radiologic studies, CT jr8 scan, ultrasound, and as a result, I will discharge patient. Data interpreted: Pulse oximetry: on room air is 100 %. Interpretation: normal. Counseling: I had a detailed discussion with the patient and/or guardian regarding: the historical points, exam findings, and any diagnostic results supporting the discharge/admit diagnosis, lab results, radiology results, the need for outpatient follow up, an OB/Gyne specialist, to return to the emergency department if symptoms worsen or persist or if there are any questions or concerns that arise at home. ED course: Patient feeling better. Discussed findings with her and her significant other. Will follow up with RETAIL LEADER in the next couple of days. If worse would come back . 01/12 10:34 Order name: Urine Dipstick--Ancillary (enter results); Complete Time: 11:59 bd 01/12 10:34 Order name: Urine --Ancillary (enter results); Complete Time: 11:59 bd 01/12 10:52 Order name: Basic Metabolic Panel; Complete Time: 11:59 jr8 01/12 10:52 Order name: CBC with Diff; Complete Time: 11:59 jr8 01/12 10:52 Order name: Creatinine for Radiology; Complete Time: 11:59 jr8 01/12 10:52 Order name: Hepatic Function; Complete Time: 11:59 01/12 10:52 Order name: Lipase; Complete Time: 11:59 01/12 10:52 Order name: IV Saline Lock; Complete Time: 11:25 01/12 10:53 Order name: CT Abd/Pelvis - W/Contrast; Complete Time: 12:41 01/12 13:04 Order name: US Transvaginal Study (Probe); Complete Time: 14:07 01/12 10:52 Order name: Labs collected and sent; Complete Time: 11: Administered Medications: 11:15 Drug: NS 0.9% 1000 ml Route: IV; Rate: 125 ml/hr; Site: right antecubital; ls4 11:15 Drug: Demerol 50 mg Route: IVP; Site: left antecubital; ls4 12:00 Follow up: Response: No adverse reaction hb 11:15 Drug: Zofran 4 mg Route: IVP; Site: right antecubital; ls4 12:00 Follow up: Response: No adverse reaction hb 13:08 Drug: Demerol 25 mg Route: IVP; Site: right antecubital; hb Disposition: 16:12 Co-signature as Attending Physician, Adolfo Espinosa MD I agree with the assessment and kayden plan of care. Disposition: 01/12/18 14:12 Discharged to Home. Impression: Other ovarian cysts - Ruptured Hemorrhagic Ovarian Cyst . - Condition is Stable. - Discharge Instructions: Ovarian Cyst. - Prescriptions for Ibuprofen 800 mg Oral Tablet - take 1 tablet by ORAL route every 12 hours As needed take with food; 20 tablet. Tylenol- Codeine #3 300-30 mg Oral Tablet - take 2 tablets by ORAL route every 6 hours As needed; 20 tablet. - Medication Reconciliation Form, Thank You Letter, Antibiotic Education, Prescription Opioid Use form. - Follow up: Private Physician; When: 1 - 2 days; Reason: Recheck today's complaints, Continuance of care, Re-evaluation by your physician. - Problem is new. - Symptoms have improved. Signatures: Dispatcher [employer] Adolfo Olivier MD MD cha Roszak, Josh, PA PA jr8 Rebeca Quiroz RN RN Joy Simmons RN RN Francis, Louann, RN RN ls4 Corrections: (The following items were deleted from the chart) 14:28 14:12 01/12/2018 14:12 Discharged to Home. Impression: Other ovarian cysts - Ruptured hb Hemorrhagic Ovarian Cyst . Condition is Stable. Forms are Medication Reconciliation Form, Thank You Letter, Antibiotic Education, Prescription Opioid Use. Follow up: Private Physician; When: 1 - 2 days; Reason: Recheck today's complaints, Continuance of care, Re-evaluation by your physician. Problem is new. Symptoms have improved. jr8
--- NOTE | 2018-01-12 14:13 | ER ---
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 Transition of care: patient was not received from another setting of care. Onset of symptoms was January 12, 2018. Risk Assessment: Do you want to hurt yourself or someone else? Patient reports no desire to harm self or others. Initial Sepsis Screen: Does the patient meet any 2 criteria? No. Patient's initial sepsis screen is negative. Does the patient have a suspected source of infection? No. Patient's initial sepsis screen is negative. Care prior to arrival: None. 09:04 Method Of Arrival: Wheelchair ph 09:04 Acuity: JES 3 ph Triage Assessment: 10:09 General: Appears in no apparent distress. Behavior is calm, cooperative. 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 - Social history:: Smoking status: . - Ebola Screening: : Patient negative for fever greater than or equal to 101.5 degrees Fahrenheit, and additional compatible Ebola Virus Disease symptoms Patient denies exposure to infectious person Patient denies travel to an Ebola-affected area in the 21 days before illness onset No symptoms or risks identified at this time. Screenin:06 Abuse screen: Denies threats or abuse. Nutritional screening: No deficits noted. ls4 Tuberculosis screening: No symptoms or risk factors identified. Fall Risk None identified. Assessment: 10:06 Pain: Complains of pain in suprapubic area Pain currently is 9 out of 10 on a pain ls4 scale. Quality of pain is described as crampy, sharp, Pain began 30 min ago. Cardiovascular: No deficits noted. Respiratory: No deficits noted. GI: No deficits noted. Bowel sounds present X 4 quads. Abd is soft X 4 quads. :. Derm: No deficits noted. Musculoskeletal: No deficits noted. 11:00 Reassessment: Patient appears in no apparent distress at this time. No changes from hb previously documented assessment. Patient and/or family updated on plan of care and expected duration. Pain level reassessed. Patient is alert, oriented x 3, equal unlabored respirations, skin warm/dry/pink. 12:00 Reassessment: Patient appears in no apparent distress at this time. No changes from hb previously documented assessment. Patient and/or family updated on plan of care and expected duration. Pain level reassessed. Patient is alert, oriented x 3, equal unlabored respirations, skin warm/dry/pink. 12:57 Reassessment: Patient appears in no apparent distress at this time. No changes from hb previously documented assessment. Patient and/or family updated on plan of care and expected duration. Pain level reassessed. Patient is alert, oriented x 3, equal unlabored respirations, skin warm/dry/pink. 13:45 Reassessment: Patient appears in no apparent distress at this time. No changes from hb previously documented assessment. Patient and/or family updated on plan of care and expected duration. Pain level reassessed. Patient is alert, oriented x 3, equal unlabored respirations, skin warm/dry/pink. Vital Signs: 09:05 BP 148 / 97; Pulse 72; Resp 18; Temp 97.1; Pulse Ox 100% on R/A; Weight 83.91 kg; ph Height 5 ft. 6 in. (167.64 cm); Pain 10/10; 11:30 BP 138 / 78; Pulse 61; Resp 16; Pulse Ox 98% on R/A; Pain 8/10; hb 12:30 BP 136 / 76; Pulse 66; Resp 15; Pulse Ox 100% on R/A; hb 13:45 BP 128 / 68; Pulse 64; Resp 15; Pulse Ox 100% on R/A; hb 09:05 Body Mass Index 29.86 (83.91 kg, 167.64 cm) ph ED Course: 08:57 Patient arrived in ED. as 09:05 Triage completed. ph 09:06 Arm band placed on Patient placed in waiting room, Patient notified of wait time. ph 10:04 Kirit Torres PA is PHCP. jr8 10:04 Adolfo Espinosa MD is Attending Physician. jr8 10:06 Patient has correct armband on for positive identification. Placed in gown. Bed in low ls4 position. Call light in reach. Adult w/ patient. Noise minimized. Warm blanket given. 10:38 Joy Simmons, RN is Primary Nurse. hb 11:03 Radiology exam delayed due to lab results not completed at this time. (BUN/Creatinine) nj test not completed at this time. 11:10 Inserted saline lock: 18 gauge in right forearm, using aseptic technique. Blood ls4 collected. 11:10 Initial lab(s) drawn, by me, sent to lab. Urine collected: clean catch specimen, cloudy.ls4 11:15 Radiology exam delayed due to lab results not completed at this time. (BUN/Creatinine). cw1 11:38 Radiology exam delayed due to lab results not completed at this time. (BUN/Creatinine). cw1 11:50 Radiology exam delayed due to lab results not completed at this time. (BUN/Creatinine). nj 12:[address] via wheelchair. nj 12:24 CT completed. Patient tolerated procedure well. Patient moved back from CT. nj 12:24 CT Abd/Pelvis - W/Contrast In Process Unspecified. EDMS 13:25 Patient taken to ultrasound. via wheelchair. aa4 13:39 US Transvaginal Study (Probe) In Process Unspecified. EDMS 14:27 No provider procedures requiring assistance completed. IV discontinued, intact, hb bleeding controlled, No redness/swelling at site. Pressure dressing applied. Administered Medications: 11:15 Drug: NS 0.9% 1000 ml Route: IV; Rate: 125 ml/hr; Site: right antecubital; ls4 11:15 Drug: Demerol 50 mg Route: IVP; Site: left antecubital; ls4 12:00 Follow up: Response: No adverse reaction hb 11:15 Drug: Zofran 4 mg Route: IVP; Site: right antecubital; ls4 12:00 Follow up: Response: No adverse reaction hb 13:08 Drug: Demerol 25 mg Route: IVP; Site: right antecubital; hb Outcome: 14:12 Discharge ordered by MD. watson 14:27 Discharged to home ambulatory. hb 14:27 Condition: stable 14:27 Discharge instructions given to patient, Instructed on discharge instructions, follow up and referral plans. medication usage, Demonstrated understanding of instructions, follow-up care, medications, Prescriptions given X 2. 14:28 Patient left the ED. hb Signatures: Dispatcher [employer] EDMS Ramila Monroy Amanda aa4 Claudia Denney 1 Kirit Torres PA PA jr8 Hall, Patricia, RN RN Joy Simmons, RN RN Yared Morel Lisa RN RN ls4
[2018-01-12 14:44] VITALS: TEMP 97.1
[2018-01-12 14:47] VITALS: BP 136/76; O2SAT 100
== END 2018-01-12 14:28 | disposition home or self-care (01) ==
LOC: ER 08:56
DX: N83.209 Unspecified ovarian cyst, unspecified side (principal); I10 Essential (primary) hypertension; Z91.048 Other nonmedicinal substance allergy status
CPT/HCPCS: 36415; 74177; 76830; 80048; 80076; 81003; 81025; 83690; 85025; 99284; J2175; J2405; J7030; Q9967

== ENCOUNTER 2018-02-08 19:11 | Emergency (ER) | payer OTHER ==
[2018-02-08] MEDS ORDERED: IBUPROFEN 200 MG TAB PO ONE (19:53)
--- NOTE | 2018-02-08 20:30 | RAD REPORT ---
EXAM DESCRIPTION: RAD - Ankle Left 3 View - 02/08/2018 8:13 pm CLINICAL HISTORY: PAIN Swelling COMPARISON: None FINDINGS: Left ankle and left foot - multiple projections are submitted. No acute fracture or dislocation. Postsurgical changes are noted involving the first toe. Tiny calcan eal spurs are present.
--- NOTE | 2018-02-08 20:39 | EDPHYS ---
Physician Documentation [facility] Name: Phoebe Diamond Age: 32 yrs Sex: Female : 1985 Arrival Date: 02/08/2018 Time: 19:14 Bed 12 Private MD: ED Physician Adolfo Espinosa HPI: 02/08 19:44 This 32 yrs old Female presents to ER via Wheelchair with complaints of Foot kayden Injury. 19:44 The patient presents with decreased range of motion, pain. kyaden 19:46 The complaints affect the left foot. Context: The problem was sustained at home. Onset: kayden The symptoms/episode began/occurred 1 day(s) ago. Modifying factors: The symptoms are alleviated by nothing, the symptoms are aggravated by nothing. Associated signs and symptoms: The patient has no apparent associated signs or symptoms. Severity of symptoms: At their worst the symptoms were mild, moderate, in the emergency department the symptoms are unchanged. The patient has not experienced similar symptoms in the past. 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 - Social history:: Smoking status: Patient/guardian denies using tobacco. - Ebola Screening: : Patient denies travel to an Ebola-affected area in the 21 days before illness onset. - Family history:: not pertinent. - Hospitalizations: : No recent hospitalization is reported. ROS: 19:46 Constitutional: Negative for fever, chills, and weight loss, Eyes: Negative for injury, kayden pain, redness, and discharge, ENT: Negative for injury, pain, and discharge, Neck: Negative for injury, pain, and swelling, Cardiovascular: Negative for chest pain, palpitations, and edema, Respiratory: Negative for shortness of breath, cough, wheezing, and pleuritic chest pain, Abdomen/GI: Negative for abdominal pain, nausea, vomiting, diarrhea, and constipation, Back: Negative for injury and pain, : Negative for injury, bleeding, discharge, and swelling, Skin: Negative for injury, rash, and discoloration, Neuro: Negative for headache, weakness, numbness, tingling, and seizure, Psych: Negative for depression, anxiety, suicide ideation, homicidal ideation, and hallucinations, Allergy/Immunology: Negative for hives, rash, and allergies, Endocrine: Negative for neck swelling, polydipsia, polyuria, polyphagia, and marked weight changes, Hematologic/Lymphatic: Negative for swollen nodes, abnormal bleeding, and unusual bruising. 19:46 MS/extremity: Positive for decreased range of motion, pain, swelling, of the left foot. Exam: 19:46 Constitutional: This is a well developed, well nourished patient who is awake, alert, kayden and in no acute distress. Head/Face: Normocephalic, atraumatic. Eyes: Pupils equal round and reactive to light, extra-ocular motions intact. Lids and lashes normal. Conjunctiva and sclera are non-icteric and not injected. Cornea within normal limits. Periorbital areas with no swelling, redness, or edema. ENT: Nares patent. No nasal discharge, no septal abnormalities noted. Tympanic membranes are normal and external auditory canals are clear. Oropharynx with no redness, swelling, or masses, exudates, or evidence of obstruction, uvula midline. Mucous membranes moist. Neck: Trachea midline, no thyromegaly or masses palpated, and no cervical lymphadenopathy. Supple, full range of motion without nuchal rigidity, or vertebral point tenderness. No Meningismus. Chest/axilla: Normal chest wall appearance and motion. Nontender with no deformity. No lesions are appreciated. Cardiovascular: Regular rate and rhythm with a normal S1 and S2. No gallops, murmurs, or rubs. Normal PMI, no JVD. No pulse deficits. Respiratory: Lungs have equal breath sounds bilaterally, clear to auscultation and percussion. No rales, rhonchi or wheezes noted. No increased work of breathing, no retractions or nasal flaring. Abdomen/GI: Soft, non-tender, with normal bowel sounds. No distension or tympany. No guarding or rebound. No evidence of tenderness throughout. Back: No spinal tenderness. No costovertebral tenderness. Full range of motion. Skin: Warm, dry with normal turgor. Normal color with no rashes, no lesions, and no evidence of cellulitis. Neuro: Awake and alert, GCS 15, oriented to person, place, time, and situation. Cranial nerves II-XII grossly intact. Motor strength 5/5 in all extremities. Sensory grossly intact. Cerebellar exam normal. Normal gait. Psych: Awake, alert, with orientation to person, place and time. Behavior, mood, and affect are within normal limits. 19:46 Musculoskeletal/extremity: ROM: full active range of motion, full passive range of motion, Circulation is intact in all extremities. Sensation intact. Compartment Syndrome exam of affected extremity: is normal. Joints: All joints appear normal with full range of motion. Weight bearing: can bear weight with assistance only, DVT Exam: negative Homans' sign noted on exam, no appreciated bluish discoloration, no erythema, no increased warmth, pain, swelling, tenderness. Vital Signs: 19:21 BP 156 / 96; Pulse 91; Resp 18; Temp 97.4; Pulse Ox 100% on R/A; Weight 86.18 kg (R); aj1 Height 5 ft. 6 in. (167.64 cm) (R); Pain 8/10; 19:42 BP 149 / 88; Pulse 84; Resp 16; Pulse Ox 98% on R/A; mt 19:21 Body Mass Index 30.67 (86.18 kg, 167.64 cm) aj1 MDM: 19:33 Patient medically screened. [facility] 19:48 Data reviewed: vital signs, nurses notes, radiologic studies, plain films. [facility] 02/08 19:37 Order name: Ankle Left 3 View XRAY; Complete Time: 20:37 [facility] 02/08 19:37 Order name: Foot Left 3 View XRAY [facility] 02/08 20:38 Order name: Post-op shoe; Complete Time: 20:57 [facility] 02/08 20:38 Order name: Crutches; Complete Time: 20:57 [facility] 02/08 20:38 Order name: Hakeem Wrap; Complete Time: 20:57 [facility] Administered Medications: 19:54 Drug: Motrin 600 mg Route: PO; jl3 20:57 Follow up: Response: No adverse reaction; Pain is decreased jl3 Disposition: 02/08/18 20:39 Discharged to Home. Impression: Other sprain of right foot, Sprain of ankle. - Condition is Stable. - Discharge Instructions: Ankle Sprain, Foot Contusion, Foot Sprain, Ankle Sprain, [id number], Foot Contusion, [id number]. - Prescriptions for Tylenol- Codeine #3 300-30 mg Oral Tablet - take 2 tablet by ORAL route every 6 hours As needed; 30 tablet. Motrin IB 200 mg Oral Tablet - take 2 tablet by ORAL route every 6 hours As needed as needed with food; 30 tablet. - Medication Reconciliation Form, Thank You Letter, Antibiotic Education, Prescription Opioid Use form. - Follow up: Private Physician; When: 2 - 3 days; Reason: Recheck today's complaints, Continuance of care, Re-evaluation by your physician. - Problem is new. - Symptoms have improved. Signatures: Dispatcher [employer] EDMS Bárbara Hong RN RN aj1 Adolfo Espinosa MD MD cha Lowman, John, RN RN jl3 Corrections: (The following items were deleted from the chart) 21:15 20:39 02/08/2018 20:39 Discharged to Home. Impression: Other sprain of right foot; jl3 Sprain of ankle. Condition is Stable. Forms are Medication Reconciliation Form, Thank You Letter, Antibiotic Education, Prescription Opioid Use. Follow up: Private Physician; When: 2 - 3 days; Reason: Recheck today's complaints, Continuance of care, Re-evaluation by your physician. Problem is new. Symptoms have improved. kayden
--- NOTE | 2018-02-08 20:39 | ER ---
Nurse's Notes [facility] Name: Phoebe Diamond Age: 32 yrs Sex: Female : 1985 Arrival Date: 02/08/2018 Time: 19:14 Bed 12 Private MD: Diagnosis: Other sprain of right foot;Sprain of ankle Presentation: 02/08 19:20 Presenting complaint: Patient states: She was wresting with her significant other and aj1 he put his knee on her left ankle, and its been sore ever since and now she can't put weight on it. Transition of care: patient was not received from another setting of care. Onset of symptoms was February 04, 2018. Risk Assessment: Do you want to hurt yourself or someone else? Patient reports no desire to harm self or others. Initial Sepsis Screen: Does the patient meet any 2 criteria? No. Patient's initial sepsis screen is negative. Does the patient have a suspected source of infection? No. Patient's initial sepsis screen is negative. Care prior to arrival: None. 19:20 Method Of Arrival: Wheelchair [facility] 19:20 Acuity: JES 4 aj1 Triage Assessment: 19:21 General: Appears in no apparent distress. uncomfortable, Behavior is calm, cooperative, aj1 appropriate for age. Pain: Pain currently is 8 out of 10 on a pain scale. Neuro: Level of Consciousness is awake, alert, obeys commands. Cardiovascular: Patient's skin is warm and dry. Musculoskeletal: Range of motion: limited in left ankle. 21:14 Injury Description: Bruise sustained to left foot. 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 - Social history:: Smoking status: Patient/guardian denies using tobacco. - Ebola Screening: : Patient denies travel to an Ebola-affected area in the 21 days before illness onset. - Family history:: not pertinent. - Hospitalizations: : No recent hospitalization is reported. Screenin:13 Abuse screen: none noted. Nutritional screening: No deficits noted. Tuberculosis jl3 screening: No symptoms or risk factors identified. Fall Risk Ambulatory Aid- Crutches/Cane/Walker (15 pts). Assessment: 19:58 General: Appears uncomfortable, Behavior is calm, cooperative, Pt states was wrestling jl3 with spouse, who fell on her L. foot on bed on Friday. Some inflammation noted to bottom of L. foot, Pt withdraws L. 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 Pt states cannot put weight on foot. Pain: Complains of pain in left foot. Vital Signs: 19:21 BP 156 / 96; Pulse 91; Resp 18; Temp 97.4; Pulse Ox 100% on R/A; Weight 86.18 kg (R); aj1 Height 5 ft. 6 in. (167.64 cm) (R); Pain 8/10; 19:42 BP 149 / 88; Pulse 84; Resp 16; Pulse Ox 98% on R/A; mt 19:21 Body Mass Index 30.67 (86.18 kg, 167.64 cm) aj1 ED Course: 19:14 Patient arrived in ED. ds1 19:21 Triage completed. aj1 19:21 Arm band placed on Patient placed in an exam room. aj1 19:33 Adolfo Espinosa MD is Attending Physician. kayden 19:41 Syd Villalba, RN is Primary Nurse. jl3 20:14 Ankle Left 3 View XRAY In Process Unspecified. EDMS 20:14 Foot Left 3 View XRAY In Process Unspecified. EDMS 21:13 No provider procedures requiring assistance completed. Patient did not have IV access jl3 during this emergency room visit. 21:15 Patient has correct armband on for positive identification. jl3 Administered Medications: 19:54 Drug: Motrin 600 mg Route: PO; jl3 20:57 Follow up: Response: No adverse reaction; Pain is decreased jl3 Outcome: 20:39 Discharge ordered by . kayden 21:14 Discharged to home ambulatory, with crutches. jl3 21:14 Condition: stable 21:14 Discharge instructions given to patient, family. 21:15 Patient left the ED. jl3 Signatures: Dispatcher [employer] EDMS Bárbara Hong RN RN aj1 Adolfo Espinosa MD MD cha Sanford, Demi ds1 Syd Villalba, RN RN jl3 [place]
[2018-02-08 22:10] VITALS: TEMP 97.4
[2018-02-08 22:11] VITALS: BP 149/88; O2SAT 98
== END 2018-02-08 21:15 | disposition home or self-care (01) ==
LOC: ER 19:11
DX: S93.492A Sprain of other ligament of left ankle, initial encounter (principal); S93.602A Unspecified sprain of left foot, initial encounter; X58.XXXA Exposure to other specified factors, initial encounter; Y92.009 Unspecified place in unspecified non-institutional (private) residence as the place of occurrence of the external cause
CPT/HCPCS: 99283

== ENCOUNTER 2018-12-18 07:42 | Emergency (ER) | payer OTHER, SELFPAY ==
[2018-12-18] MEDS ORDERED: NA CHLORIDE 0.9% 1,000 ML ONE (08:53)
[2018-12-18] MEDS ORDERED: MORPHINE 4 MG/ML SYR ONE (08:53)
[2018-12-18] MEDS ORDERED: ONDANSETRON 4 MG/2 ML VIAL ONE (08:53)
[2018-12-18 09:15] LABS: Absolute Lymphocytes (CBC) 1.3 K/uL (0.7-4.9); Basophils % 0.5 % (0-1.3); MPV 9.5 fL (7.6-11.3); RBC Red Blood Cell Count 4.71 M/uL (3.86-4.86)
[2018-12-18 09:30] LABS: Albumin 4.2 g/dL (3.4-5.0); Bilirubin Direct 0.2 mg/dL (0-0.2); Protein, Total 7.5 g/dL (6.4-8.2)
[2018-12-18 10:41] LABS: Urine Blood NEGATIVE (NEG); Urine Glucose NEGATIVE (NEG); Urine Protein NEGATIVE (NEG)
--- NOTE | 2018-12-18 10:46 | ER ---
Nurse's Notes [facility] Name: Phoebe Diamond Age: 33 yrs Sex: Female : 1985 Arrival Date: 12/18/2018 Time: 07:44 Bed 14 Private MD: Diagnosis: Cholelithiasis Presentation: 12/18 08:26 Presenting complaint: Patient states: nausea/vomiting and abd pain that began 2 days aa5 ago. Pt also reports diarrhea. Transition of care: patient was not received from another setting of care. Onset of symptoms was December 2018. Risk Assessment: Do you want to hurt yourself or someone else? Patient reports no desire to harm self or others. Initial Sepsis Screen: Does the patient meet any 2 criteria? No. Patient's initial sepsis screen is negative. Does the patient have a suspected source of infection? No. Patient's initial sepsis screen is negative. Care prior to arrival: None. 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 - Social history:: Smoking status: Patient/guardian denies using tobacco. - Ebola Screening: : No symptoms or risks identified at this time. Screenin:28 Abuse screen: Denies threats or abuse. Denies injuries from another. Nutritional ph screening: No deficits noted. Tuberculosis screening: No symptoms or risk factors identified. Fall Risk None identified. Assessment: 09:15 General: Appears in no apparent distress. comfortable, well groomed, Behavior is calm, ph cooperative, appropriate for age, Reports fever for. Pain: Complains of pain in right upper quadrant Pain radiates to back. Neuro: Level of Consciousness is awake, alert, obeys commands, Oriented to person, place, time, situation. Cardiovascular: Capillary refill < 3 seconds in bilateral fingers Patient's skin is warm and dry. Respiratory: Airway is patent Respiratory effort is even, unlabored, Respiratory pattern is regular, symmetrical. GI: Bowel sounds present X 4 quads. Abd is soft X 4 quads Abdomen is tender to palpation in right upper quadrant Reports upper abdominal pain, bloating, epigastric pain, nausea, vomiting. Derm: Skin is intact, Skin is pink, warm \T\ dry. Musculoskeletal: Circulation, motion, and sensation intact. Range of motion: intact in all extremities. 10:15 Reassessment: Patient appears in no apparent distress at this time. Patient and/or ph family updated on plan of care and expected duration. Pain level reassessed. Patient is alert, oriented x 3, equal unlabored respirations, skin warm/dry/pink. 11:18 Reassessment: Patient appears in no apparent distress at this time. Patient and/or ph family updated on plan of care and expected duration. Pain level reassessed. Patient is alert, oriented x 3, equal unlabored respirations, skin warm/dry/pink. Vital Signs: 08:28 BP 144 / 104; Pulse 74; Resp 18 S; Temp 99.4(TE); Pulse Ox 99% on R/A; Weight 88.45 kg aa5 (R); Height 5 ft. 6 in. (167.64 cm) (R); Pain 8/10; 10:30 BP 129 / 87; Pulse 71; Resp 18; Pulse Ox 99% on R/A; ph 11:19 BP 131 / 84; Pulse 74; Resp 18; Temp 98.0; Pulse Ox 99% on R/A; ph 08:28 Body Mass Index 31.47 (88.45 kg, 167.64 cm) aa5 ED Course: 07:44 Patient arrived in ED. as 08:26 Arm band placed on. aa5 08:27 Triage completed. aa5 08:27 Stephanie Carroll FNP-C is PHCP. kb 08:27 Adolfo Espinosa MD is Attending Physician. kb 08:48 Rebeca Quiroz RN is Primary Nurse. ph 09:00 Inserted saline lock: 20 gauge in right antecubital area, using aseptic technique. ph Blood collected. 09:31 Patient has correct armband on for positive identification. Bed in low position. Call ph light in reach. Side rails up X 1. Pulse ox on. NIBP on. Door closed. Noise minimized. Warm blanket given. Head of bed elevated. 09:33 US Abdomen Limited In Process Unspecified. EDMS 11:16 No provider procedures requiring assistance completed. IV discontinued, intact, ph bleeding controlled, No redness/swelling at site. Pressure dressing applied. Administered Medications: 09:11 Drug: NS 0.9% 1000 ml Route: IV; Rate: 1000 ml; Site: right antecubital; ph 10:45 Follow up: Response: No adverse reaction; IV Status: Completed infusion ph 09:11 Drug: Zofran 4 mg Route: IVP; Site: right antecubital; ph 11:20 Follow up: Response: No adverse reaction ph 09:11 Drug: morphine 4 mg Route: IVP; Site: right antecubital; ph 10:00 Follow up: Response: No adverse reaction; Pain is decreased; RASS: Alert and Calm (0) ph 11:00 Drug: TORadol 30 mg Route: IVP; Site: right antecubital; ph 11:20 Follow up: Response: No adverse reaction; Medication administered at discharge. ph Outcome: 10:45 Discharge ordered by . kb 11:18 Discharged to home ambulatory, with family. ph 11:18 Condition: good 11:18 Discharge instructions given to patient, Instructed on discharge instructions, follow up and referral plans. medication usage, Demonstrated understanding of instructions, follow-up care, medications, Prescriptions given X 3. 11:21 Patient left the ED. ph Signatures: Dispatcher [employer] Stephanie Bruce, LANIE BARAHONA-Ramila Anderson Audri, RN RN aa5 Rebeca Quiroz RN RN ph
[2018-12-18] MEDS ORDERED: KETOROLAC 30 MG/ML INJ ONE (10:54)
--- NOTE | 2018-12-18 11:22 | EDPHYS ---
Physician Documentation [facility] Name: Phoebe Diamond Age: 33 yrs Sex: Female : 1985 Arrival Date: 12/18/2018 Time: 07:44 Bed 14 Private MD: RIMA Physician Adolfo Espinosa HPI: 12/18 10:54 This 33 yrs old Female presents to ER via Ambulatory with complaints of kb Abdominal Pain, Vomiting. 10:54 The patient presents with abdominal pain in the right upper quadrant. Onset: The kb symptoms/episode began/occurred 1 month(s) ago, and became worse this morning. The symptoms radiate to right back. Associated signs and symptoms: Pertinent positives: nausea and vomiting, Pertinent negatives: fever. The symptoms are described as intermittent. Modifying factors: The symptoms are alleviated by nothing, the symptoms are aggravated by nothing. Severity of pain: At its worst the pain was moderate in the emergency department the pain is unchanged. The patient has not experienced similar symptoms in the past. The patient has not recently seen a physician. 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 - Social history:: Smoking status: Patient/guardian denies using tobacco. - Ebola Screening: : No symptoms or risks identified at this time. ROS: 10:53 Constitutional: Negative for fever, chills, and weight loss, ENT: Negative for injury, kb pain, and discharge, Neck: Negative for injury, pain, and swelling, Cardiovascular: Negative for chest pain, palpitations, and edema, Respiratory: Negative for shortness of breath, cough, wheezing, and pleuritic chest pain, Back: Negative for injury and pain, : Negative for injury, bleeding, discharge, and swelling, MS/Extremity: Negative for injury and deformity, Skin: Negative for injury, rash, and discoloration, Neuro: Negative for headache, weakness, numbness, tingling, and seizure. 10:53 Abdomen/GI: Positive for abdominal pain, nausea and vomiting. Exam: 10:53 Constitutional: This is a well developed, well nourished patient who is awake, alert, kb and in no acute distress. Head/Face: Normocephalic, atraumatic. ENT: Nares patent. No nasal discharge, no septal abnormalities noted. Tympanic membranes are normal and external auditory canals are clear. Oropharynx with no redness, swelling, or masses, exudates, or evidence of obstruction, uvula midline. Mucous membranes moist. Neck: Trachea midline, no thyromegaly or masses palpated, and no cervical lymphadenopathy. Supple, full range of motion without nuchal rigidity, or vertebral point tenderness. No Meningismus. Chest/axilla: Normal chest wall appearance and motion. Nontender with no deformity. No lesions are appreciated. Cardiovascular: Regular rate and rhythm with a normal S1 and S2. No gallops, murmurs, or rubs. Normal PMI, no JVD. No pulse deficits. Respiratory: Lungs have equal breath sounds bilaterally, clear to auscultation and percussion. No rales, rhonchi or wheezes noted. No increased work of breathing, no retractions or nasal flaring. Back: No spinal tenderness. No costovertebral tenderness. Full range of motion. Skin: Warm, dry with normal turgor. Normal color with no rashes, no lesions, and no evidence of cellulitis. MS/ Extremity: Pulses equal, no cyanosis. Neurovascular intact. Full, normal range of motion. Neuro: Awake and alert, GCS 15, oriented to person, place, time, and situation. Cranial nerves II-XII grossly intact. Motor strength 5/5 in all extremities. Sensory grossly intact. Cerebellar exam normal. Normal gait. 10:53 Abdomen/GI: Inspection: abdomen appears normal, Bowel sounds: normal, in all quadrants, Palpation: soft, in all quadrants, mild abdominal tenderness, in the right upper quadrant. Vital Signs: 08:28 BP 144 / 104; Pulse 74; Resp 18 S; Temp 99.4(TE); Pulse Ox 99% on R/A; Weight 88.45 kg aa5 (R); Height 5 ft. 6 in. (167.64 cm) (R); Pain 8/10; 10:30 BP 129 / 87; Pulse 71; Resp 18; Pulse Ox 99% on R/A; ph 11:19 BP 131 / 84; Pulse 74; Resp 18; Temp 98.0; Pulse Ox 99% on R/A; ph 08:28 Body Mass Index 31.47 (88.45 kg, 167.64 cm) aa5 MDM: 08:27 Patient medically screened. kb 10:43 Data reviewed: vital signs, nurses notes. Data interpreted: Pulse oximetry: on room air kb is 99 %. Interpretation: normal. Counseling: I had a detailed discussion with the patient and/or guardian regarding: the historical points, exam findings, and any diagnostic results supporting the discharge/admit diagnosis, lab results, radiology results, the need for outpatient follow up, a family practitioner, a general surgeon, to return to the emergency department if symptoms worsen or persist or if there are any questions or concerns that arise at home. ED course: Informed that US showed gallstones, but not fluid, edema or other signs of infection. 12/18 08:28 Order name: Basic Metabolic Panel; Complete Time: 09:49 kb 12/18 08:28 Order name: CBC with Diff; Complete Time: 09:23 kb 12/18 08:28 Order name: Hepatic Function; Complete Time: 09:49 kb 12/18 08:28 Order name: Lipase; Complete Time: 09:49 kb 12/18 09:25 Order name: Urine Dipstick--Ancillary (enter results); Complete Time: 10:41 eb 12/18 09:25 Order name: Urine --Ancillary (enter results); Complete Time: 10:41 eb 12/18 08:28 Order name: IV Saline Lock; Complete Time: 09:10 kb 12/18 08:28 Order name: Labs collected and sent; Complete Time: 09:10 kb 12/18 08:28 Order name: US Abdomen Limited kb Administered Medications: 09:11 Drug: NS 0.9% 1000 ml Route: IV; Rate: 1000 ml; Site: right antecubital; ph 10:45 Follow up: Response: No adverse reaction; IV Status: Completed infusion ph 09:11 Drug: Zofran 4 mg Route: IVP; Site: right antecubital; ph 11:20 Follow up: Response: No adverse reaction ph 09:11 Drug: morphine 4 mg Route: IVP; Site: right antecubital; ph 10:00 Follow up: Response: No adverse reaction; Pain is decreased; RASS: Alert and Calm (0) ph 11:00 Drug: TORadol 30 mg Route: IVP; Site: right antecubital; ph 11:20 Follow up: Response: No adverse reaction; Medication administered at discharge. ph Disposition: 12/18/18 10:45 Discharged to Home. Impression: Cholelithiasis. - Condition is Stable. - Discharge Instructions: Cholelithiasis, Tann-iv-Mrug. - Prescriptions for Bentyl 20 mg Oral Tablet - take 1 tablet by ORAL route every 6 hours As needed; 20 tablet. Zofran 4 mg Oral Tablet - take 1 tablet by ORAL route every 6 hours As needed; 20 tablet. Diclofenac Sodium 75 mg Oral Tablet, Delayed Release (E.C.) - take 1 tablet by ORAL route 2 times per day As needed; 30 tablet. - Medication Reconciliation Form, Thank You Letter, Antibiotic Education, Prescription Opioid Use, Work release form form. - Follow up: Emergency Department; When: As needed; Reason: Worsening of condition. Follow up: Private Physician; When: 2 - 3 days; Reason: Recheck today's complaints, Continuance of care, Re-evaluation by your physician. Addendum: 12/20/2018 07:50 Co-signature as Attending Physician, Adolfo Espinosa MD I agree with the assessment and c cevallos plan of care. Signatures: Dispatcher [employer] EDMS Stephanie Carroll, STAFF REPORTER-C STAFF REPORTER-Isaiahb Adolfo Espinosa MD MD cha Calderon, Audri, RN RN aa5 Rebeca Quiroz RN RN ph Corrections: (The following items were deleted from the chart) 12/18 11:21 10:45 12/18/2018 10:45 Discharged to Home. Impression: Cholelithiasis. Condition is ph Stable. Forms are Medication Reconciliation Form, Thank You Letter, Antibiotic Education, Prescription Opioid Use. Follow up: Emergency Department; When: As needed; Reason: Worsening of condition. Follow up: Private Physician; When: 2 - 3 days; Reason: Recheck today's complaints, Continuance of care, Re-evaluation by your physician. kb
[2018-12-18 11:46] VITALS: O2SAT 99
[2018-12-18 11:49] VITALS: BP 131/84; TEMP 98
--- NOTE | 2018-12-23 12:18 | RAD REPORT ---
EXAM DESCRIPTION: US - Abdomen Exam Limited - 12/23/2018 11:18 am CLINICAL HISTORY: ABD PAIN COMPARISON: Abdomen Pelvis W Contrast dated 01/12/2018 FINDINGS: Small sub centimeter sized gallstones are seen clustered near the neck of the gallbladder. There is no wall thickening or pericholecystic fluid. No common duct stone or biliary tree dilatation identified. Due to a prolonged technical malfunction of the PACs historic preservationist systems, this final written report was delayed. Preliminary verbal report provided at the time of the study. IMPRESSION: Small gallstones well under 1 centimeter in size are present near the neck of the gallbl adder. No other gallbladder or biliary tree finding.
== END 2018-12-18 11:21 | disposition home or self-care (01) ==
LOC: ER 07:42
DX: K80.20 Calculus of gallbladder without cholecystitis without obstruction (principal)
CPT/HCPCS: 36415; 76705; 80048; 80076; 81003; 81025; 83690; 85025; 96361; 96374; 96375; 99284; J2405; J7030

== ENCOUNTER 2019-01-12 11:23 | Emergency (ER) | payer SELFPAY ==
[2019-01-12 12:22] LABS: Absolute Lymphocytes (CBC) 1.6 K/uL (0.7-4.9); Basophils % 0.7 % (0-1.3); Hematocrit 38.3 % (36.0-45.0); Lymphocytes % 26.2 % (15.3-44.8); MPV 9.5 fL (7.6-11.3); RBC Red Blood Cell Count 4.42 M/uL (3.86-4.86)
[2019-01-12] MEDS ORDERED: NA CHLORIDE 0.9% 1,000 ML ONE (12:22)
[2019-01-12] MEDS ORDERED: KETOROLAC 30 MG/ML INJ ONE (12:22)
[2019-01-12] MEDS ORDERED: ONDANSETRON 4 MG/2 ML VIAL ONE (12:22)
[2019-01-12] MEDS ORDERED: MORPHINE 4 MG/ML SYR ONE (12:22)
[2019-01-12 12:54] LABS: Albumin 3.7 g/dL (3.4-5.0); Bilirubin Direct 0.1 mg/dL (0-0.2); Bilirubin Total 0.6 mg/dL (0.2-1.0); Potassium 3.3 mmol/L (3.5-5.1); Protein, Total 6.6 g/dL (6.4-8.2)
--- NOTE | 2019-01-12 13:00 | RAD REPORT ---
EXAM DESCRIPTION: US - Abdomen Exam Limited - 01/12/2019 12:42 pm CLINICAL HISTORY: RUQ abd pain COMPARISON: Abdomen Exam Limited dated 12/18/2018 FINDINGS: Numerous small mobile gallstones are identified similar to prior imaging. No wall thickeni ng or pericholecystic fluid. No polyp or mass identifiable. No common duct stone or biliary tree dilatation identified. IMPRESSION: Multiple small mobile gallstones similar to prior imaging. No biliary tree abnormality.
--- NOTE | 2019-01-12 13:26 | RAD REPORT ---
EXAM DESCRIPTION: CT - Abdomen Pelvis W Contrast - 01/12/2019 1:05 pm CLINICAL HISTORY: abd pain. diarrhea COMPARISON: CT study December 2017 TECHNIQUE: Biphasic, helical CT imaging of the abdomen and pelvis was performed following 100 ml non -ionic IV contrast. No oral contrast. All CT scans are performed using dose optimization technique as appropriate and may include automated exposure control or mA/KV adjustment according to patient size. FINDINGS: No suspicious findings in the lung bases. The liver, spleen, and pancreas show no suspicious findings. Gallbladder and biliary tree are also wi thout suspicious finding. Symmetric renal function is seen with no hydronephrosis or suspicious renal mass. No pyelonephritis o r acute parenchymal process. No bladder abnormalities. No adrenal abnormalities. No dilated bowel loops or bowel wall thickening. Appendix is normal. No free air, free fluid or infla mmatory stranding. No hernia, mass or bulky lymphadenopathy. Uterus and ovaries show no suspicious f indings. No suspicious bony findings. IMPRESSION: Contrast enhanced CT abdomen and pelvis showing no significant or suspicious finding.
[2019-01-12] MEDS ORDERED: HYDROMORPHONE HCL 1 MG/ML INJ ONE (13:34)
[2019-01-12] MEDS ORDERED: POTASSIUM 25 MEQ EFFERV TAB ONE (14:06)
--- NOTE | 2019-01-12 14:09 | ER ---
Nurse's Notes [facility] Name: Hayden Diamond Age: 33 yrs Sex: Female : 1985 Arrival Date: 01/12/2019 Time: 11:25 Bed 23 Private MD: Diagnosis: acute abdominal pain;acute vomiting;diarrhea;cholelithiasis Presentation: 01/12 11:29 Presenting complaint: Patient states: abd pain, n/v/d x 1 day. Transition of care: sv patient was not received from another setting of care. Onset of symptoms was January 11, 2019. Risk Assessment: Do you want to hurt yourself or someone else? Patient reports no desire to harm self or others. Care prior to arrival: None. 11:29 Method Of Arrival: Ambulatory sv 11:29 Acuity: JES 2 sv 13:54 Initial Sepsis Screen: Does the patient meet any 2 criteria? No. Patient's initial mg2 sepsis screen is negative. Does the patient have a suspected source of infection? No. Patient's initial sepsis screen is negative. Triage Assessment: 11:33 General: Appears in no apparent distress. uncomfortable, Behavior is cooperative, sv appropriate for age, crying. Pain: Complains of pain in abdomen. Neuro: Level of Consciousness is awake, alert, obeys commands, Gait is steady. Respiratory: Respiratory effort is even, unlabored, Respiratory pattern is regular, symmetrical. GI: Reports lower abdominal pain, upper abdominal pain, diarrhea, nausea, vomiting. 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 - Social history:: Smoking status: Patient/guardian denies using tobacco. - Ebola Screening: : No symptoms or risks identified at this time. - Family history:: not pertinent. - Hospitalizations: : No recent hospitalization is reported. Screenin:52 Abuse screen: Denies threats or abuse. Denies injuries from another. Nutritional mg2 screening: No deficits noted. Tuberculosis screening: No symptoms or risk factors identified. Fall Risk IV access (20 points). Assessment: 12:30 General: Appears in no apparent distress. comfortable, Behavior is calm, cooperative. mg2 Pain: Complains of pain in right upper quadrant Pain radiates to back Pain currently is 8 out of 10 on a pain scale. Quality of pain is described as aching, Pain began gradually, Is intermittent. Neuro: Level of Consciousness is awake, alert, obeys commands, Oriented to person, place, time, situation. Cardiovascular: Capillary refill < 3 seconds Patient's skin is warm and dry. Respiratory: Airway is patent Respiratory effort is even, unlabored, Respiratory pattern is regular, symmetrical. GI: Reports upper abdominal pain, nausea. : No signs and/or symptoms were reported regarding the genitourinary system. EENT: No signs and/or symptoms were reported regarding the EENT system. Derm: Skin is intact, is healthy with good turgor, Skin is pink, warm \T\ dry. normal. Musculoskeletal: Circulation, motion, and sensation intact. Capillary refill < 3 seconds. 14:31 Reassessment: Patient appears in no apparent distress at this time. Patient and/or tw2 family updated on plan of care and expected duration. Pain level reassessed. Patient is alert, oriented x 3, equal unlabored respirations, skin warm/dry/pink. Patient states feeling better. Vital Signs: 11:30 BP 143 / 103; Pulse 85; Resp 20; Temp 98.1(TE); Pulse Ox 100% ; Weight 86.18 kg; Height sv 5 ft. 6 in. (167.64 cm); Pain 8/10; 12:11 BP 147 / 104 LA (auto/reg); Pulse 76; Resp 16; Temp 98.8(O); Pulse Ox 100% on R/A; Pain jp3 8/10; 13:06 BP 144 / 104; Pulse 65; Resp 18; Pulse Ox 100% on R/A; mg2 11:30 Body Mass Index 30.67 (86.18 kg, 167.64 cm) sv ED Course: 11:25 Patient arrived in ED. as 11:30 Triage completed. sv 11:33 Arm band placed on. sv 11:57 Tee Harkins, ZANE is Primary Nurse. mg2 11:58 Andrea Levi MD is Attending Physician. wa 12:04 Inserted saline lock: 20 gauge in right antecubital area, using aseptic technique. jp3 Blood collected. Patient maintains SpO2 saturation greater than 95% on room air. 12:04 Initial lab(s) drawn, by me, sent to lab. jp3 12:09 Bed in low position. Call light in reach. Side rails up X 1. Side rails up X2. Warm jp3 blanket given. Pillow given. Verbal reassurance given. Pulse ox on. NIBP on. 12:10 Placed in gown. jp3 12:44 US Abdomen Limited In Process Unspecified. EDMS 13:04 CT Abd/Pelvis - IV Contrast Only In Process Unspecified. EDMS 13:54 No provider procedures requiring assistance completed. mg2 14:01 Urine collected: clean catch specimen, clear, hayden colored. jp3 14:07 Luis Pete MD is Referral Physician. wa 14:08 Andrea Kidd MD is Referral Physician. wa 14:31 IV discontinued, intact, bleeding controlled, No redness/swelling at site. Pressure tw2 dressing applied. Administered Medications: 12:40 Drug: NS 0.9% 1000 ml Route: IV; Rate: 1 bolus; Site: right antecubital; mg2 14:29 Follow up: Response: No adverse reaction; IV Status: Order to discontinue infusion; IV tw2 Intake: 800ml 12:41 Drug: TORadol 30 mg Route: IVP; Site: right antecubital; mg2 12:41 Drug: Zofran 4 mg Route: IVP; Site: right antecubital; mg2 12:41 Drug: morphine 4 mg Route: IVP; Site: right antecubital; mg2 13:38 Drug: Dilaudid 1 mg Route: IVP; Site: right antecubital; mg2 14:29 Follow up: Response: No adverse reaction; Pain is decreased; RASS: Alert and Calm (0) tw2 14:15 Drug: Potassium Effervescent Tablet 50 mEq Route: PO; mg2 14:29 Follow up: Response: No adverse reaction tw2 Intake: 14:29 IV: 800ml; Total: 800ml. tw2 Outcome: 14:09 Discharge ordered by . wa 14:30 Discharged to home ambulatory, with family. tw2 14:30 Condition: stable 14:30 Discharge instructions given to patient, family, Instructed on discharge instructions, tw2 follow up and referral plans. no drinking with medication, no driving heavy equipment, medication usage, Demonstrated understanding of instructions, follow-up care, medications, Prescriptions given X 3. 14:31 Patient left the ED. tw2 Signatures: Dispatcher [employer] Magali Bell RN RN sv Martinez, Amelia as Wise, Tara, RN RN tw2 Andrea Levi MD MD wa Gardose, Michele, RN RN [facility] Danilo Ramirez jp3 Corrections: (The following items were deleted from the chart) 11:33 11:29 Acuity: JES 3 sv sv 11:33 11:30 BP 143 / 103; Pulse 85bpm; Resp 20bpm; Pulse Ox 100%; 86.18 kg; Height 5 ft. 6 sv in.; BMI: 30.6; Pain 8/10; sv
--- NOTE | 2019-01-12 14:10 | EDPHYS ---
Physician Documentation [facility] Name: Phoebe Diamond Age: 33 yrs Sex: Female : 1985 Arrival Date: 01/12/2019 Time: 11:25 Bed 23 Private MD: ED Physician Andrea Levi HPI: 01/12 12:57 This 33 yrs old Female presents to ER via Ambulatory with complaints of wa Gallbladder. 12:57 The patient presents with abdominal pain in the right upper quadrant. Onset: The wa symptoms/episode began/occurred last night. The symptoms radiate to back, the right shoulder. Associated signs and symptoms: Pertinent positives: nausea and vomiting, diarrhea. The symptoms are described as sharp. Modifying factors: The symptoms are alleviated by nothing, the symptoms are aggravated by nothing. Severity of pain: At its worst the pain was severe in the emergency department the pain is unchanged. The patient has experienced similar episodes in the past, a few times. The patient has been recently seen by a physician: 3 week(s) ago, with similar presenting complaints. seen here 12/18 for same. states pain returned last night and severe. worse with deep breathing. c/o diarrhea over 1 month, about 4-6 stools per day. admits to nausea and vomiting. 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 - Social history:: Smoking status: Patient/guardian denies using tobacco. - Ebola Screening: : No symptoms or risks identified at this time. - Family history:: not pertinent. - Hospitalizations: : No recent hospitalization is reported. ROS: 13:01 Eyes: Negative for injury, pain, redness, and discharge, ENT: Negative for injury, wa pain, and discharge, Neck: Negative for injury, pain, and swelling, Cardiovascular: Negative for chest pain, palpitations, and edema, Respiratory: Negative for shortness of breath, cough, wheezing, and pleuritic chest pain, Back: Negative for injury and pain, : Negative for injury, bleeding, discharge, and swelling, MS/Extremity: Negative for injury and deformity, Skin: Negative for injury, rash, and discoloration, Neuro: Negative for headache, weakness, numbness, tingling, and seizure, Psych: Negative for depression, anxiety, suicide ideation, homicidal ideation, and hallucinations. 13:01 Constitutional: Positive for chills, weight loss, Negative for fever. 13:01 Abdomen/GI: Positive for abdominal pain, nausea and vomiting, diarrhea. 13:01 All other systems are negative. Exam: 13:02 Constitutional: This is a well developed, well nourished patient who is awake, alert, wa and in no acute distress. Head/Face: Normocephalic, atraumatic. Eyes: Pupils equal round and reactive to light, extra-ocular motions intact. Lids and lashes normal. Conjunctiva and sclera are non-icteric and not injected. Cornea within normal limits. Periorbital areas with no swelling, redness, or edema. ENT: Nares patent. No nasal discharge, no septal abnormalities noted. Tympanic membranes are normal and external auditory canals are clear. Oropharynx with no redness, swelling, or masses, exudates, or evidence of obstruction, uvula midline. Mucous membranes moist. Neck: Trachea midline, no thyromegaly or masses palpated, and no cervical lymphadenopathy. Supple, full range of motion without nuchal rigidity, or vertebral point tenderness. No Meningismus. Chest/axilla: Normal chest wall appearance and motion. Nontender with no deformity. No lesions are appreciated. Cardiovascular: Regular rate and rhythm with a normal S1 and S2. No gallops, murmurs, or rubs. Normal PMI, no JVD. No pulse deficits. Respiratory: Lungs have equal breath sounds bilaterally, clear to auscultation and percussion. No rales, rhonchi or wheezes noted. No increased work of breathing, no retractions or nasal flaring. Back: No spinal tenderness. No costovertebral tenderness. Full range of motion. Skin: Warm, dry with normal turgor. Normal color with no rashes, no lesions, and no evidence of cellulitis. MS/ Extremity: Pulses equal, no cyanosis. Neurovascular intact. Full, normal range of motion. Neuro: Awake and alert, GCS 15, oriented to person, place, time, and situation. Cranial nerves II-XII grossly intact. Motor strength 5/5 in all extremities. Sensory grossly intact. Cerebellar exam normal. Normal gait. Psych: Awake, alert, with orientation to person, place and time. Behavior, mood, and affect are within normal limits. 13:02 Abdomen/GI: Inspection: abdomen appears normal, Bowel sounds: normal, Palpation: soft, in all quadrants, moderate abdominal tenderness, in the right upper quadrant. Vital Signs: 11:30 BP 143 / 103; Pulse 85; Resp 20; Temp 98.1(TE); Pulse Ox 100% ; Weight 86.18 kg; Height sv 5 ft. 6 in. (167.64 cm); Pain 8/10; 12:11 BP 147 / 104 LA (auto/reg); Pulse 76; Resp 16; Temp 98.8(O); Pulse Ox 100% on R/A; Pain jp3 8/10; 13:06 BP 144 / 104; Pulse 65; Resp 18; Pulse Ox 100% on R/A; mg2 11:30 Body Mass Index 30.67 (86.18 kg, 167.64 cm) sv MDM: 11:58 Patient medically screened. wa 13:03 Differential diagnosis: bowel obstruction, cholecystitis, Cholelithiasis, non-specific wa abd pain, noted w/ gallstones on recent eval. will check for interval change, i.e. cholecystitis. consider pancreatitis. pt with on-going diarrhea. consider colitis vs IBD. pain control. hydration. labs and imaging. will reassess. 14:04 Data reviewed: vital signs, nurses notes. wa 14:05 Test interpretation: by ED physician or midlevel provider: labs noted for low K at 3.3. wa otherwise wnl. CT abd/plevis: no acute process. RUQ US: gallstones. no pericholecystic fluid or wall thickening. Response to treatment: the patient's symptoms have markedly improved after treatment. ED course: pain improved with IV pain meds. still suspect gallbladder as reason for pain. will have f/u closely with Gen Surg and GI. . 01/12 11:58 Order name: Basic Metabolic Panel; Complete Time: 13:06 mg2 01/12 11:58 Order name: CBC with Diff; Complete Time: 13:06 mg2 01/12 11:58 Order name: Creatinine for Radiology; Complete Time: 13: [facility] 01/12 11:58 Order name: Hepatic Function; Complete Time: 13:06 [facility] 01/12 11:58 Order name: Lipase; Complete Time: 13:06 [facility] 01/12 12:12 Order name: Urine Microscopic Only EDMS 01/12 12:13 Order name: US Abdomen Limited; Complete Time: 13:06 wa 01/12 12:15 Order name: CT Abd/Pelvis - IV Contrast Only; Complete Time: 13:38 al 01/12 14:11 Order name: Urine Dipstick--Ancillary (enter results) 01/12 14:11 Order name: Urine --Ancillary (enter results) 01/12 11:58 Order name: IV Saline Lock; Complete Time: 12:12 [facility] 01/12 11:58 Order name: Labs collected and sent; Complete Time: 12:12 [facility] 01/12 12:12 Order name: Urine Dipstick-Ancillary (obtain specimen); Complete Time: 14:01 wa 01/12 12:12 Order name: Urine Test (obtain specimen); Complete Time: 14:01 al Administered Medications: 12:40 Drug: NS 0.9% 1000 ml Route: IV; Rate: 1 bolus; Site: right antecubital; mg2 14:29 Follow up: Response: No adverse reaction; IV Status: Order to discontinue infusion; IV tw2 Intake: 800ml 12:41 Drug: TORadol 30 mg Route: IVP; Site: right antecubital; mg2 12:41 Drug: Zofran 4 mg Route: IVP; Site: right antecubital; mg2 12:41 Drug: morphine 4 mg Route: IVP; Site: right antecubital; mg2 13:38 Drug: Dilaudid 1 mg Route: IVP; Site: right antecubital; mg2 14:29 Follow up: Response: No adverse reaction; Pain is decreased; RASS: Alert and Calm (0) tw2 14:15 Drug: Potassium Effervescent Tablet 50 mEq Route: PO; mg2 14:29 Follow up: Response: No adverse reaction tw2 Disposition: 01/12/19 14:09 Discharged to Home. Impression: acute abdominal pain, acute vomiting, diarrhea, cholelithiasis. - Condition is Stable. - Discharge Instructions: Abdominal Pain, Adult, Nausea and Vomiting, Adult, Cholelithiasis, [id number], Diarrhea, Adult, [id number]. - Prescriptions for Zofran 4 mg Oral Tablet - take 1 tablet by ORAL route every 12 hours As needed; 20 tablet. Pepcid 20 mg Oral Tablet - take 1 tablet by ORAL route once daily for 10 days; 10 tablet. - Work release form, Medication Reconciliation Form, Thank You Letter, Antibiotic Education, Prescription Opioid Use form. - Follow up: Luis Pete MD; When: 1 - 2 days; Reason: Recheck today's complaints. Follow up: Andrae Kidd MD; When: 2 - 3 days; Reason: Recheck today's complaints. - Problem is new. - Symptoms have improved. - Notes: follow up with the surgeon and gastro doctor as discussed within 2-3 days. return to ER for severe pain. your gallbladder might be the reason for your pain. you may need surgery to resolve the symptoms Signatures: Dispatcher [employer] EDWI Magali Valentino RN RN Marion Grier RN RN tw2 Andrea Levi MD MD wa Gardose, Michele RN RN mg2 Corrections: (The following items were deleted from the chart) 12:45 12:13 UA MICROSCOPIC+U.LAB.BRZ ordered. [facility] EDWI 14:31 14:09 01/12/2019 14:09 Discharged to Home. Impression: acute abdominal pain; acute tw2 vomiting; diarrhea; cholelithiasis. Condition is Stable. Forms are Medication Reconciliation Form, Thank You Letter, Antibiotic Education, Prescription Opioid Use. Follow up: Luis Pete; When: 1 - 2 days; Reason: Recheck today's complaints. Follow up: Andrea Kidd; When: 2 - 3 days; Reason: Recheck today's complaints. Problem is new. Symptoms have improved. wa
[2019-01-12 14:14] LABS: Urine Blood NEGATIVE (NEG); Urine Glucose NEGATIVE (NEG); Urine Protein NEGATIVE (NEG); Urine Specific Gravity 1.015 (1.005-1.030)
[2019-01-12 14:15] LABS: Urine Bacteria <20 /HPF (<20); Urine RBC NONE SEEN /HPF (NONE SEEN)
[2019-01-12 14:16] LABS: Urine Culture Reflex Order NOT NEEDED
[2019-01-12 14:38] VITALS: O2SAT 100
[2019-01-12 14:39] VITALS: TEMP 98.8
[2019-01-12 14:40] VITALS: BP 144/104
== END 2019-01-12 14:31 | disposition home or self-care (01) ==
LOC: ER 11:23
DX: K80.20 Calculus of gallbladder without cholecystitis without obstruction (principal); R11.10 Vomiting, unspecified; R19.7 Diarrhea, unspecified; I10 Essential (primary) hypertension; Z87.442 Personal history of urinary calculi; Z91.048 Other nonmedicinal substance allergy status
CPT/HCPCS: 36415; 74177; 76705; 80048; 80076; 81003; 81015; 81025; 83690; 85025; 96361; 96374; 96375; 99284; J1170; J2405; J7030

== ENCOUNTER 2019-04-28 22:26 | Emergency (ER) | payer SELFPAY ==
[2019-04-28] MEDS ORDERED: ONDANSETRON 4 MG/2 ML VIAL ONE (23:07)
[2019-04-28] MEDS ORDERED: NA CHLORIDE 0.9% 1,000 ML ONE (23:07)
[2019-04-28 23:17] LABS: Absolute Lymphocytes (CBC) 3.3 K/uL (0.7-4.9); Basophils % 0.9 % (0-1.3); Hematocrit 37.4 % (36.0-45.0); Lymphocytes % 34.1 % (15.3-44.8); RBC Red Blood Cell Count 4.35 M/uL (3.86-4.86)
[2019-04-28 23:32] LABS: ALT/SGPT 13 U/L (12-78); AST/SGOT 8 U/L (15-37); Albumin 3.8 g/dL (3.4-5.0); Alkaline Phosphatase 59 U/L (45-117); BUN Blood Urea Nitrogen 14 mg/dL (7-18); Bicarbonate 26 mmol/L (21-32); Bilirubin Direct < 0.1 mg/dL (0-0.2); Bilirubin Total 0.2 mg/dL (0.2-1.0); Glucose Level 95 mg/dL (74-106); Lipase 169 U/L (73-393); Potassium 3.5 mmol/L (3.5-5.1); Protein, Total 7.1 g/dL (6.4-8.2); Sodium Level 140 mmol/L (136-145)
[2019-04-28 23:44] LABS: Urine Bacteria 20-50 /HPF (<20); Urine RBC NONE SEEN /HPF (NONE SEEN)
[2019-04-28 23:46] LABS: Urine Culture Reflex Order REFLEXED
[2019-04-29 00:19] LABS: Urine Blood NEGATIVE (NEG); Urine Glucose NEGATIVE (NEG); Urine Protein NEGATIVE (NEG)
[2019-04-29] MEDS ORDERED: MEPERIDINE HCL 25 MG/0.5 ML ONE (00:31)
[2019-04-29] MEDS ORDERED: DIPHENOX/ATROP SULF 1 TAB PO ONE (00:34)
--- NOTE | 2019-04-29 00:53 | ER ---
Nurse's Notes [facility] Name: Phoebe Diamond Age: 33 yrs Sex: Female : 1985 Arrival Date: 04/28/2019 Time: 22:29 Bed 20 Private MD: Diagnosis: Generalized abdominal pain;Vomiting, unspecified;Diarrhea, unspecified Presentation: 04/28 22:37 Presenting complaint: Patient states: Last Friday she was diagnosed with Sinusitis and wh started on Azithromycin. She was getting better until Friday she developed back pain and stomach pain with NVD. Pt also C/O on and off fever. Transition of care: patient was not received from another setting of care. Onset of symptoms was April 28, 2019. Risk Assessment: Do you want to hurt yourself or someone else? Patient reports no desire to harm self or others. Initial Sepsis Screen: Does the patient meet any 2 criteria? No. Patient's initial sepsis screen is negative. Does the patient have a suspected source of infection? Yes: Acute abdominal pain. Care prior to arrival: None. 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 - Coronavirus screen:: The patient has NOT traveled to [place] in the past 14 days. - Social history:: Smoking status: Patient/guardian denies using. - Family history:: not pertinent. - Ebola Screening: : Patient negative for fever greater than or equal to 101.5 degrees Fahrenheit, and additional compatible Ebola Virus Disease symptoms Patient denies exposure to infectious person. - Hospitalizations: : No recent hospitalization is reported. Screenin:48 Abuse screen: Denies threats or abuse. Denies injuries from another. Nutritional screening: No deficits noted. Tuberculosis screening: No symptoms or risk factors identified. Fall Risk None identified. Assessment: 22:46 General: Appears in no apparent distress. Behavior is calm, cooperative, appropriate for age. Pain: Complains of pain in back and abdomen Pain does not radiate. Pain currently is 6 out of 10 on a pain scale. Quality of pain is described as crampy, Pain began 2-3 days ago. Neuro: Level of Consciousness is awake, alert, obeys commands, Oriented to person, place, time, situation, Appropriate for age. Cardiovascular: Heart tones S1 S2. Respiratory: Airway is patent Respiratory effort is even, unlabored, Respiratory pattern is regular, symmetrical, Breath sounds are clear bilaterally. GI: Abdomen is flat, non-distended, Abd is soft and non tender X 4 quads. Reports upper abdominal pain, diarrhea, nausea, vomiting. : No deficits noted. EENT: Throat is pink. Derm: Skin is intact, is healthy with good turgor, Skin is pink, warm \T\ dry. normal. Musculoskeletal: Circulation, motion, and sensation intact. 23:35 Reassessment: Patient appears in no apparent distress at this time. No changes from previously documented assessment. Patient and/or family updated on plan of care and expected duration. Pain level reassessed. Patient is alert, oriented x 3, equal unlabored respirations, skin warm/dry/pink. 04/29 01:04 Reassessment: Patient appears in no apparent distress at this time. No changes from previously documented assessment. Patient and/or family updated on plan of care and expected duration. Pain level reassessed. Patient is alert, oriented x 3, equal unlabored respirations, skin warm/dry/pink. Patient states feeling better. Patient states symptoms have improved. Vital Signs: 04/28 22:45 BP 168 / 103; Pulse 80; Resp 18; Temp 98.4; Pulse Ox 100% ; Weight 83.46 kg; Height 5 ft. 6 in. (167.64 cm); Pain 6/10; 23:35 BP 153 / 107; Pulse 66; Resp 18; Pulse Ox 98% on R/A; 04/29 01:05 BP 163 / 100; Pulse 70; Resp 18; Pulse Ox 99% on R/A; 04/28 22:45 Body Mass Index 29.70 (83.46 kg, 167.64 cm) ED Course: 04/28 22:29 Patient arrived in ED. ag3 22:32 Chester Carroll is Primary Nurse. 22:33 Connor Arenas MD is Attending Physician. rn 22:39 Triage completed. 22:48 Arm band placed on right wrist. 22:49 Patient has correct armband on for positive identification. Placed in gown. Bed in low wh position. Call light in reach. Side rails up X 1. Pulse ox on. NIBP on. 23:00 Inserted saline lock: 20 gauge in right antecubital area, using aseptic technique. Blood collected. By Jasmyne Madsen equipment maintenance tech. 23:11 Radiology exam delayed due to lab results not completed at this time. (BUN/Creatinine). 04/29 01:05 IV discontinued, intact, bleeding controlled, No redness/swelling at site. 01:05 No provider procedures requiring assistance completed. Administered Medications: 04/28 23:07 Drug: NS 0.9% 1000 ml Route: IV; Rate: 1000 ml; Site: right antecubital; 04/29 01:07 Follow up: Response: No adverse reaction; IV Status: Completed infusion 04/28 23:07 Drug: Zofran 4 mg Route: IVP; Site: right antecubital; 04/29 01:07 Follow up: Response: No adverse reaction; Nausea is decreased 00:34 Drug: Demerol 25 mg Route: IVP; Site: right antecubital; 01:07 Follow up: Response: No adverse reaction; Pain is decreased; RASS: Alert and Calm (0) 00:34 Drug: LoMOTIL 2 tabs Route: PO; 01:07 Follow up: Response: No adverse reaction Outcome: 00:51 Discharge ordered by . rn 01:06 Discharged to home ambulatory, with family. 01:06 Condition: stable 01:06 Discharge instructions given to patient, Instructed on discharge instructions, follow up and referral plans. medication usage, POC Demonstrated understanding of instructions, follow-up care, medications, POC Prescriptions given X 2. 01:08 Patient left the ED. Signatures: Soren Coffey Connor Arenas MD MD rn [place], Chester Jamila Batista
--- NOTE | 2019-04-29 00:54 | EDPHYS ---
Physician Documentation [facility] Name: Phoebe Diamond Age: 33 yrs Sex: Female : 1985 Arrival Date: 04/28/2019 Time: 22:29 Bed 20 Private MD: ED Physician Connor Arenas HPI: 04/28 23:03 This 33 yrs old Female presents to ER via Ambulatory with complaints of rn Nausea/Vomiting/diarrhea. 23:03 The patient presents to the emergency department with nausea, vomiting, diarrhea, rn abdominal pain, of the epigastric area. Onset: The symptoms/episode began/occurred 2 day(s) ago. Possible causes: unknown. The symptoms are aggravated by nothing. The symptoms are alleviated by nothing. Severity of symptoms: At their worst the symptoms were moderate in the emergency department the symptoms are unchanged. The patient has experienced similar episodes in the past. Reports began 5 days ago with what seemed like sinus infection, given zithromax by teledoc, felt a little better, then Friday began with subjective fevers, chills, nausea/vomiting/diarrhea/abd pain, also reports dark urine and hx of kidney stones.. 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 - Coronavirus screen:: The patient has NOT traveled to [place] in the past 14 days. - Social history:: Smoking status: Patient/guardian denies using. - Family history:: not pertinent. - Ebola Screening: : Patient negative for fever greater than or equal to 101.5 degrees Fahrenheit, and additional compatible Ebola Virus Disease symptoms Patient denies exposure to infectious person. - Hospitalizations: : No recent hospitalization is reported. ROS: 23:03 Constitutional: Negative for weight loss, Eyes: Negative for injury, pain, redness, and sourcing intern, Neck: Negative for injury, pain, and swelling, Cardiovascular: Negative for chest pain, palpitations, and edema, Respiratory: Negative for shortness of breath, cough, wheezing, and pleuritic chest pain, Abdomen/GI: Negative for constipation Back: + low back pain : + dark urine MS/Extremity: Negative for injury and deformity, Skin: Negative for injury, rash, and discoloration, Neuro: Negative for headache, weakness, numbness, tingling, and seizure. Exam: 23:03 Constitutional: This is a well developed, well nourished patient who is awake, alert, rn vomiting Head/Face: Normocephalic, atraumatic. ENT: dry MM Neck: Trachea midline, no thyromegaly or masses palpated, and no cervical lymphadenopathy. Supple, full range of motion without nuchal rigidity, or vertebral point tenderness. No Meningismus. Cardiovascular: Regular rate and rhythm. No pulse deficits. Respiratory: No increased work of breathing, no retractions or nasal flaring. Abdomen/GI: soft, mild epigastric tenderness, neg mendiola Skin: Warm, dry MS/ Extremity: Pulses equal, no cyanosis. Neurovascular intact. Full, normal range of motion. Equal circumference. Neuro: Awake and alert, GCS 15, oriented to person, place, time, and situation. Cranial nerves II-XII grossly intact. Motor strength 5/5 in all extremities. Sensory grossly intact. Cerebellar exam normal. Vital Signs: 22:45 BP 168 / 103; Pulse 80; Resp 18; Temp 98.4; Pulse Ox 100% ; Weight 83.46 kg; Height 5 wh ft. 6 in. (167.64 cm); Pain 6/10; 23:35 BP 153 / 107; Pulse 66; Resp 18; Pulse Ox 98% on R/A; 04/29 01:05 BP 163 / 100; Pulse 70; Resp 18; Pulse Ox 99% on R/A; 04/28 22:45 Body Mass Index 29.70 (83.46 kg, 167.64 cm) MDM: 04/28 22:33 Patient medically screened. rn 04/29 00:22 Differential diagnosis: Nonspecific abd pain, gastritis, cholecystitis, pancreatitis, rn appendicitis, diverticulitis, viral gastroenteritis, gastroenteritis. Data reviewed: vital signs, nurses notes, lab test result(s), radiologic studies, CT scan, and as a result, I will discharge patient. Counseling: I had a detailed discussion with the patient and/or guardian regarding: the historical points, exam findings, and any diagnostic results supporting the discharge/admit diagnosis, lab results, radiology results, the need for outpatient follow up, to return to the emergency department if symptoms worsen or persist or if there are any questions or concerns that arise at home. Response to treatment: the patient's symptoms have mildly improved after treatment, and as a result, I will discharge patient. Special discussion: Based on the patient's Hx, exam, and Dx evaluation, there is no indication for emergent surgery or inpatient Tx. It is understood by the patient/guardian that if the Sx's persist or worsen they need to return immediately for re-evaluation. I discussed with the patient/guardian in detail that at this point there is no indication for admission to the hospital. It is understood, however, that if the symptoms persist or worsen the patient needs to return immediately for re-evaluation. Based on the history and exam findings, there is no indication for further emergent testing or inpatient evaluation. I discussed with the patient/guardian the need to see the radiotelegraph operator servicer for further evaluation of the symptoms. I discussed with the patient/guardian the need to see the OB Gyne specialist for further evaluation of the symptoms. ED course: Pt improved, but reports still having pain, pain meds ordered, ambulatory to bathroom. CT no acute findings. Will dc home with symptomatic treatment.. 02 22:48 Order name: Basic Metabolic Panel rn 04/28 22:48 Order name: CBC with Diff rn 04/28 22:48 Order name: Creatinine for patternmaker hand 04/28 22:48 Order name: Hepatic Function rn 04/28 22:48 Order name: Lipase rn 04/28 22:48 Order name: Flu rn 04/28 22:48 Order name: Urine Microscopic Only rn 04/28 23:03 Order name: Urine Dipstick--Ancillary (enter results) nm 04/28 23:03 Order name: Urine --Ancillary (enter results) nm 04/28 23:18 Order name: CBC with Automated Diff; Complete Time: 00:08 EDFL 04/28 23:29 Order name: Creatinine (Radiology Only); Complete Time: 00:08 EDFL 04/28 23:33 Order name: Basic Metabolic Panel; Complete Time: 00:08 EDFL 04/28 23:33 Order name: Liver (Hepatic) Function; Complete Time: 00:08 EDFL 04/28 23:33 Order name: Lipase; Complete Time: 00:08 EDFL 02/12 22:48 Order name: IV Saline Lock; Complete Time: 23:02 rn 04/28 22:48 Order name: Labs collected and sent; Complete Time: 23:02 rn 04/28 22:48 Order name: CT Abd/Pelvis - IV Contrast Only 04/28 22:48 Order name: Urine Dipstick-Ancillary (obtain specimen); Complete Time: 23:02 rn 04/28 23:46 Order name: Urine Microscopic Only; Complete Time: 00:08 EDFL 04/29 00:23 Order name: Urine --Ancillary; Complete Time: 00:23 EDMS 04/29 00:23 Order name: Urine Dipstick-Ancillary; Complete Time: 00:23 EDMS 04/29 00:47 Order name: Influenza Screen (A ; Complete Time: 00:50 EDMS Administered Medications: 04/28 23:07 Drug: NS 0.9% 1000 ml Route: IV; Rate: 1000 ml; Site: right antecubital; 04/29 01:07 Follow up: Response: No adverse reaction; IV Status: Completed infusion 04/28 23:07 Drug: Zofran 4 mg Route: IVP; Site: right antecubital; 04/29 01:07 Follow up: Response: No adverse reaction; Nausea is decreased 00:34 Drug: Demerol 25 mg Route: IVP; Site: right antecubital; 01:07 Follow up: Response: No adverse reaction; Pain is decreased; RASS: Alert and Calm (0) 00:34 Drug: LoMOTIL 2 tabs Route: PO; 01:07 Follow up: Response: No adverse reaction Disposition: 04/29/19 00:51 Discharged to Home. Impression: Generalized abdominal pain, Vomiting, unspecified, Diarrhea, unspecified. - Condition is Stable. - Discharge Instructions: Diarrhea, Adult, Nausea and Vomiting, Adult. - Prescriptions for Zofran ODT 4 mg Oral tablet,disintegrating - place 1 tablet by TRANSLINGUAL route every 8 hours As needed; 20 tablet. Bentyl 20 mg Oral Tablet - take 1 tablet by ORAL route every 6 hours As needed; 20 tablet. - Medication Reconciliation Form, Thank You Letter, Antibiotic Education, Prescription Opioid Use form. - Follow up: Private Physician; When: As needed; Reason: Recheck today's complaints, Re-evaluation by your physician. - Problem is new. - Symptoms have improved. Signatures: Dispatcher [employer] Connor Barbosa MD MD rn [place], [place] wh Corrections: (The following items were deleted from the chart) 01:08 00:51 04/29/2019 00:51 Discharged to Home. Impression: Generalized abdominal pain; wh Vomiting, unspecified; Diarrhea, unspecified. Condition is Stable. Forms are Medication Reconciliation Form, Thank You Letter, Antibiotic Education, Prescription Opioid Use. Follow up: Private Physician; When: As needed; Reason: Recheck today's complaints, Re-evaluation by your physician. Problem is new. Symptoms have improved. rn
--- NOTE | 2019-04-29 11:19 | RAD REPORT ---
EXAM DESCRIPTION: Abdomen Pelvis W Contrast CLINICAL HISTORY: 33-year-old female with complaint of back and stomach pain. Medical history of cho lelithiasis, gout, hypertension nephrolithiasis. COMPARISON: 01/12/2019. TECHNIQUE: CT of the abdomen and pelvis was performed following intravenous administration of contra st. Oral contrast was not administered. Multiplanar reformatted images were provided. This exam was p erformed according to our departmental dose optimization program which includes use of automated expo sure control, adjustment of the mA and/or kV according to patient size and/or use of iterative recons truction technique. FINDINGS: Chest: Evaluation through the lung bases reveals no focal opacity, pleural effusion or pne umothorax. Heart size is within normal limits. No pericardial effusion. Abdomen and pelvis: The liver, gallbladder, pancreas, spleen, bilateral kidneys and bilateral adrenal glands are within normal limits. Punctate calcification within the RIGHT renal pelvis compatible wit h nonobstructing calculus The vessels are patent and normal in caliber. No abdominopelvic lymph nodes are noted to be pathologically enlarged by CT measurement criteria. The bowel is within normal limits without abnormal bowel wall thickness or bowel dilation. No free air. No free abdominopelvic fluid collections. The appendix is within normal limits. Crenulat ed enhancements of the LEFT adnexa measuring 24 mm compatible with corpus luteum type cyst. The uteru s and RIGHT adnexa appear to be within normal limits of a contrast-enhanced CT examination. The osseous structures are within normal limits. Fat-containing umbilical hernia. IMPRESSION: 1. No specific acute intra-abdominal findings are noted to suggest etiology of the patie nt's abdominal pain. 2. Punctate bilateral nonobstructing renal calculi. 3. 1.6 cm corpus luteum ovarian cyst. No follow-up imaging is recommended. Reference: J Am Alem Radiol 2013;10:[id number] Electronically signed by: Jane Farias MD 04/29/2019 12:12 AM LEAN ENGINEER Due to temporary technical issues with the PACS/Fluency reporting system, reports are being signed by the in house radiologist as a courtesy to ensure prompt reporting. The interpreting radiologist is f ully responsible for the content of the report.
[2019-04-30 05:03] VITALS: TEMP 98.4
[2019-04-30 05:06] VITALS: BP 163/100; O2SAT 99
== END 2019-04-29 01:08 | disposition home or self-care (01) ==
LOC: ER 22:26
DX: R11.10 Vomiting, unspecified (principal); R19.7 Diarrhea, unspecified; I10 Essential (primary) hypertension; Z91.048 Other nonmedicinal substance allergy status
CPT/HCPCS: 36415; 74177; 80048; 80076; 81003; 81015; 81025; 83690; 85025; 87086; 87088; 87804; 96361; 96374; 96375; 99284; J2175; J2405; J7030; Q9967

== ENCOUNTER 2020-12-17 18:45 | Emergency (ER) | payer OTHER, SELFPAY ==
[2020-12-17 19:50] LABS: Absolute Lymphocytes (CBC) 1.3 K/uL (0.7-4.9); Basophils % 0.7 % (0-1.3); Lymphocytes % 18.2 % (15.3-44.8); MPV 9.5 fL (7.6-11.3); RBC Red Blood Cell Count 4.39 M/uL (3.86-4.86)
[2020-12-17] MEDS ORDERED: NA CHLORIDE 0.9% 1,000 ML ONE (19:58)
--- NOTE | 2020-12-17 20:05 | RAD REPORT ---
EXAM DESCRIPTION: RAD - Chest Single View - 12/17/2020 7:58 pm CLINICAL HISTORY: CHEST PAIN COMPARISON: Chest Single View dated 12/07/2015; CHEST SINGLE VIEW dated 08/31/2011; ABDOMEN 1 VIEW KUB dated 05/09/2011; CHEST PA AND LAT 2 VIEW dated 12/13/2007 FINDINGS: Lines: None. Lungs: No evidence of edema or pneumonia. Pleural: No significant pleural effusions or pneumothorax. Cardiac: Cardiomegaly. Bones: No acute fractures. Other: IMPRESSION: No acute cardiopulmonary disease.
[2020-12-17 20:08] LABS: ALT/SGPT 16 U/L (12-78); AST/SGOT 12 U/L (15-37); Albumin 4.3 g/dL (3.4-5.0); Alkaline Phosphatase 60 U/L (45-117); BUN Blood Urea Nitrogen 12 mg/dL (7-18); Bicarbonate 25 mmol/L (21-32); Bilirubin Direct < 0.1 mg/dL (0-0.2); Bilirubin Total 0.4 mg/dL (0.2-1.0); Glucose Level 96 mg/dL (74-106); Lipase 126 U/L (73-393); Potassium 3.5 mmol/L (3.5-5.1); Protein, Total 7.6 g/dL (6.4-8.2); Sodium Level 141 mmol/L (136-145); Troponin I < 0.02 ng/mL (0.0-0.045)
--- NOTE | 2020-12-17 20:30 | RAD REPORT ---
EXAM DESCRIPTION: US - Abdomen Exam Limited - 12/17/2020 8:19 pm CLINICAL HISTORY: ABD PAIN COMPARISON: Abdomen Pelvis W Contrast dated 04/28/2019 FINDINGS: Cholelithiasis noted. No gallbladder wall thickening. No pericholecystic fluid. Negative s onographic Glynn's sign. The common bile duct measures less than 2 millimeters and is normal. IMPRESSION: Cholelithiasis but no sonographic evidence of acute cholecystitis or biliary ductal dila tation .
[2020-12-17 20:53] LABS: Urine Blood Negative (Negative); Urine Glucose Negative (Negative); Urine Protein Negative (Negative); Urine Specific Gravity >=1.030 (1.005-1.030)
[2020-12-17] MEDS ORDERED: MAGNES/ALUMIN/SIMET 30ML UCUP ONE (21:23)
[2020-12-17] MEDS ORDERED: DICYCLOMINE HCL 10 MG CAP ONE (21:23)
[2020-12-17] MEDS ORDERED: LIDOCAINE VISCOUS 2% SOLN 15 ML UDC ONE (21:23)
[2020-12-17 22:06] LABS: Urine Specific Gravity/Preg >1.030 (1.005-1.030)
[2020-12-17 22:07] LABS: Urine Bacteria <20 /HPF (<20); Urine RBC <5 /HPF (NONE SEEN)
--- NOTE | 2020-12-17 22:37 | EDPHYS ---
Physician Documentation [facility] Name: Phoebe Rom[facility] Age: 35 yrs Sex: Female : 1985 Arrival Date: 12/17/2020 Time: 18:49 Bed 13 Private MD: RIMA Physician Adolfo Espinosa HPI: 12/17 19:45 This 35 yrs old Female presents to ER via Ambulatory with complaints of cp Epigastric Pain, Nausea/Vomiting. 19:45 The patient presents with abdominal pain in the epigastric area. cp 19:45 Onset: The symptoms/episode began/occurred 2 day(s) ago. The symptoms radiate to right cp back. Associated signs and symptoms: Pertinent positives: nausea and vomiting, anorexia, chest pain. The symptoms are described as constant. Severity of pain: in the emergency department the pain is unchanged despite home interventions. The patient has experienced similar episodes in the past, multiple times, today's symptoms are similar, to when the patient was apparently diagnosed with gallstones. 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 - Social history:: Smoking status: Patient denies any tobacco usage or history of. ROS: 19:50 Constitutional: Negative for body aches, chills, fever, poor PO intake. cp 19:50 Eyes: Negative for injury, pain, redness, and discharge. cp 19:50 ENT: Negative for ear pain, sore throat, difficulty swallowing, difficulty handling secretions. 19:50 Cardiovascular: Positive for chest pain, Negative for edema, palpitations. 19:50 Respiratory: Negative for cough, shortness of breath, wheezing. 19:50 Abdomen/GI: Positive for abdominal pain, nausea and vomiting, anorexia, Negative for diarrhea, constipation. 19:50 Back: Positive for radiated pain. 19:50 : Negative for urinary symptoms. 19:50 Neuro: Negative for altered mental status, dizziness, headache, weakness. 19:50 All other systems are negative. Exam: 19:50 ECG was reviewed by the Attending Physician. cp 19:55 Constitutional: The patient appears in no acute distress, alert, awake, cp non-diaphoretic, non-toxic, well developed, well nourished, obese. 19:55 Head/Face: Normocephalic, atraumatic. cp 19:55 Eyes: Periorbital structures: appear normal, Conjunctiva: normal, no exudate, no injection, Sclera: no appreciated abnormality, Lids and lashes: appear normal, bilaterally. 19:55 ENT: External ear(s): are unremarkable, Nose: is normal, Mouth: Lips: moist, Oral mucosa: pink and intact, moist, Posterior pharynx: Airway: no evidence of obstruction, patent. 19:55 Chest/axilla: Inspection: normal. 19:55 Cardiovascular: Rate: tachycardic, Rhythm: regular, Heart sounds: murmur, not appreciated, Edema: is not appreciated, JVD: is not appreciated. 19:55 Respiratory: the patient does not display signs of respiratory distress, Respirations: normal, no use of accessory muscles, no retractions, labored breathing, is not present, Breath sounds: are clear throughout, no decreased breath sounds, no stridor, no wheezing. 19:55 Abdomen/GI: Inspection: abdomen appears normal, Bowel sounds: active, all quadrants, Palpation: soft, in all quadrants, moderate abdominal tenderness, in the epigastric area and right upper quadrant, rebound tenderness, is not appreciated, involuntary guarding, is not appreciated. 19:55 Back: pain, that is moderate, of the mid back area, ROM is normal. 19:55 Skin: no rash present. 19:55 Neuro: Orientation: to person, place \T\ time. Mentation: is normal, Motor: moves all fours, strength is normal, Sensation: is normal. Vital Signs: 19:05 BP 148 / 105; Pulse 101; Resp 18; Temp 99.2(O); Pulse Ox 98% on R/A; Weight 94.35 kg lp1 (R); Height 5 ft. 6 in. (167.64 cm); Pain 10/10; 19:27 BP 144 / 102; Pulse 98; Resp 18; Pulse Ox 100% on R/A; lh3 19:48 BP 143 / 87; Pulse 96; lh3 19:05 Body Mass Index 33.57 (94.35 kg, 167.64 cm) lp1 MDM: 19:23 Patient medically screened. kayden 22:35 Data reviewed: vital signs, nurses notes, lab test result(s), EKG, radiologic studies, cp plain films, ultrasound. 22:35 Test interpretation: by ED physician or midlevel provider: ECG, plain radiologic cp studies. Counseling: I had a detailed discussion with the patient and/or guardian regarding: the historical points, exam findings, and any diagnostic results supporting the discharge/admit diagnosis, lab results, radiology results, the need for outpatient follow up, for definitive care, a general surgeon, to return to the emergency department if symptoms worsen or persist or if there are any questions or concerns that arise at home. Response to treatment: the patient's symptoms have markedly improved after treatment, patient is well hydrated. VSS. Pain and nausea markedly improved and vomiting resolved. Will discharge to home for continued monitoring. Patient instructed to return to ED worsening symptoms. 12/17 19:32 Order name: Basic Metabolic Panel; Complete Time: 20:12 cp 12/17 20:13 Interpretation: Normal except: CL 109. cp 12/17 19:32 Order name: CBC with Diff; Complete Time: 20:12 cp 12/17 19:32 Order name: Hepatic Function; Complete Time: 20:12 cp 12/17 20:13 Interpretation: Normal except: AST 12. cp 12/17 19:32 Order name: Lipase; Complete Time: 20:12 cp 12/17 19:32 Order name: Troponin I; Complete Time: 20:12 cp 12/17 20:35 Order name: Urine Microscopic Only cp 12/17 19:32 Order name: XRAY Chest (1 view); Complete Time: 20:12 cp 12/17 19:32 Order name: US Abdomen Limited: liver/gallbladder; Complete Time: 20:35 cp 12/17 20:36 Order name: Urine Microscopic Only; Complete Time: 22:14 EDMS 12/17 20:53 Order name: Urine Dipstick-Ancillary; Complete Time: 21:42 EDMS 12/17 21:42 Interpretation: Within normal limits. cp 12/17 20:57 Order name: Urine --Ancillary (enter results); Complete Time: 22:14 oe 12/17 19:32 Order name: IV Saline Lock; Complete Time: 19:32 cp 12/17 19:32 Order name: Labs collected and sent; Complete Time: 19:32 cp 12/17 19:32 Order name: EKG; Complete Time: 19:33 cp 12/17 19:32 Order name: EKG - Nurse/Tech; Complete Time: 19:48 cp 12/17 20:35 Order name: Urine Dipstick-Ancillary (obtain specimen); Complete Time: 21:04 cp 12/17 20:35 Order name: Urine Test (obtain specimen); Complete Time: 21:04 cp EC:50 Rate is 78 beats/min. Rhythm is regular. MS interval is normal. QRS interval is normal. cp QT interval is normal. T waves are Inverted in lead aVR. Interpreted by me. Reviewed by me. Administered Medications: 19:37 Drug: NS 0.9% 1000 ml Route: IV; Rate: 1 bolus; Site: right antecubital; lh3 23:06 Follow up: IV Status: Completed infusion; IV Intake: 1000ml lh3 21:05 Drug: GI Cocktail without - (Maalox Suspension 30 ml, Lidocaine Liquid 2 % 15 lh3 ml) Route: PO; 23:06 Follow up: Response: No adverse reaction; Other lh3 21:05 Drug: Bentyl (dicyclomine) 20 mg Route: PO; lh3 23:05 Follow up: Response: No adverse reaction lh3 22:28 Drug: morphine 4 mg Route: IVP; Site: right antecubital; lh3 23:05 Follow up: Response: No adverse reaction; Pain is decreased lh3 Disposition: 12/18 06:38 Co-signature as Attending Physician, Adolfo Espinosa MD I agree with the assessment and kayden plan of care. Disposition Summary: 12/17/20 22:37 Discharge Ordered Location: Home cp Problem: new cp Symptoms: have improved cp Condition: Stable cp Diagnosis - Other cholelithiasis without obstruction cp Followup: cp - With: Heron Galvan MD - When: 1 - 2 days - Reason: Recheck today's complaints Discharge Instructions: - Discharge Summary Sheet cp - Cholelithiasis cp Forms: - Medication Reconciliation Form cp - Thank You Letter cp - Antibiotic Education cp - Prescription Opioid Use cp Prescriptions: - Zofran 4 mg Oral Tablet - take 1 tablet by ORAL route every 12 hours As needed; 20 tablet; Refills: 0, cp Product Selection Permitted - Cipro 500 mg Oral Tablet - take 1 tablet by ORAL route every 12 hours for 7 days; 14 tablet; Refills: 0, cp Product Selection Permitted - dicyclomine 20 mg Oral Tablet - take 1 tablet by ORAL route 4 times per day; 30 tablet; Refills: 0, Product cp Selection Permitted Signatures: Dispatcher [employer] EDAdolfo Feldman MD MD cha Pena, Laura, RN RN lp1 Adolfo Bruno PA PA Olivia Rosales, RN RN lh3
--- NOTE | 2020-12-17 22:37 | ER ---
Nurse's Notes [facility] [place] Name: Phoebe Romano Age: 35 yrs Sex: Female : 1985 Arrival Date: 12/17/2020 Time: 18:49 Bed 13 Private MD: Diagnosis: Other cholelithiasis without obstruction Presentation: 12/17 19:05 Chief complaint: Patient states: Epigastric pain radiating to back that has gotten lp1 progressively worse over the last couple days, reports fullness in abdomen; Hx of gallstones; vomiting today. Coronavirus screen: Vaccine status: Patient reports being unvaccinated. At this time, the client does not indicate any symptoms associated with coronavirus-19. Ebola Screen: No symptoms or risks identified at this time. Initial Sepsis Screen: Does the patient meet any 2 criteria? No. Patient's initial sepsis screen is negative. Does the patient have a suspected source of infection? No. Patient's initial sepsis screen is negative. Risk Assessment: Do you want to hurt yourself or someone else? Patient reports no desire to harm self or others. Onset of symptoms was December 17, 2020. 19:05 Method Of Arrival: Ambulatory lp1 19:05 Acuity: JES 3 lp1 Triage Assessment: 21:00 Pain: Pain level that patient reports is acceptable is 10 out of 10 on a pain scale. lh3 23:04 General: Appears in no apparent distress. Behavior is calm, cooperative, appropriate lh3 for age. 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 - Social history:: Smoking status: Patient denies any tobacco usage or history of. Screenin:08 Abuse screen: Denies threats or abuse. Denies injuries from another. Nutritional lp1 screening: No deficits noted. Tuberculosis screening: No symptoms or risk factors identified. 19:27 Fall Risk IV access (20 points). lh3 Assessment: 19:27 Pain: Complains of pain in right upper quadrant. GI: Reports upper abdominal pain, lh3 epigastric pain, nausea, tolerance of fluids, tolerance of food, vomiting. 19:27 GI: Abdomen is flat, non-distended. 3 Vital Signs: 19:05 BP 148 / 105; Pulse 101; Resp 18; Temp 99.2(O); Pulse Ox 98% on R/A; Weight 94.35 kg lp1 (R); Height 5 ft. 6 in. (167.64 cm); Pain 10/10; 19:27 BP 144 / 102; Pulse 98; Resp 18; Pulse Ox 100% on R/A; lh3 19:48 BP 143 / 87; Pulse 96; lh3 19:05 Body Mass Index 33.57 (94.35 kg, 167.64 cm) lp1 ED Course: 18:49 Patient arrived in ED. as 19:07 Triage completed. lp1 19:08 Arm band placed on. lp1 19:10 Nick Boo is Primary Nurse. aj2 19:21 Adolfo Bruno PA is PHCP. cp 19:21 Chase Watkins MD is Attending Physician. cp 19:23 Attending Physician role handed off by Chase Watkins MD [facility] 19:23 Adolfo Espinosa MD is Attending Physician. [facility] 19:27 Olivia Arellano, ZANE is Primary Nurse. lh3 19:27 Patient has correct armband on for positive identification. Bed in low position. Call 3 light in reach. Side rails up X 1. Side rails up X2. Door closed. Lights dimmed. Verbal reassurance given. 19:30 Inserted saline lock: 20 gauge in right antecubital area, using aseptic technique. lh3 19:48 No provider procedures requiring assistance completed. lh3 19:58 XRAY Chest (1 view) In Process Unspecified. EDMS 20:19 US Abdomen Limited: liver/gallbladder In Process Unspecified. EDMS 22:36 Heron Galvan MD is Referral Physician. cp 23:06 IV discontinued, bleeding controlled, No redness/swelling at site. Pressure dressing lh3 applied. Administered Medications: 19:37 Drug: NS 0.9% 1000 ml Route: IV; Rate: 1 bolus; Site: right antecubital; lh3 23:06 Follow up: IV Status: Completed infusion; IV Intake: 1000ml lh3 21:05 Drug: GI Cocktail without - (Maalox Suspension 30 ml, Lidocaine Liquid 2 % 15 lh3 ml) Route: PO; 23:06 Follow up: Response: No adverse reaction; Other lh3 21:05 Drug: Bentyl (dicyclomine) 20 mg Route: PO; lh3 23:05 Follow up: Response: No adverse reaction 3 22:28 Drug: morphine 4 mg Route: IVP; Site: right antecubital; lh3 23:05 Follow up: Response: No adverse reaction; Pain is decreased lh3 Intake: 23:06 IV: 1000ml; Total: 1000ml. 3 Outcome: 22:37 Discharge ordered by . nuria 23:04 Discharged to home ambulatory. 3 23:04 Condition: good 23:04 Discharge instructions given to patient, Instructed on discharge instructions, medication usage, Demonstrated understanding of instructions, follow-up care, medications, Prescriptions given X 3. 23:07 Patient left the ED. 3 Signatures: Dispatcher [employer] EDMS Adolfo Espinosa MD MD cha Martinez, Amelia as Pena, Laura, RN RN lp1 Adolfo Bruno PA PA cp Hardee, Latisha, RN RN lh3 Nick Boo2
[2020-12-17] MEDS ORDERED: MORPHINE 4 MG/ML SYR ONE (22:45)
[2020-12-17 23:14] VITALS: TEMP 99.2
[2020-12-17 23:15] VITALS: O2SAT 100
[2020-12-17 23:17] VITALS: BP 143/87
== END 2020-12-17 23:07 | disposition home or self-care (01) ==
LOC: ER 18:45
DX: K80.80 Other cholelithiasis without obstruction (principal); I10 Essential (primary) hypertension
CPT/HCPCS: 96361; 93005; 85025; 80048; 36415; 81025; 80076; 84484; 83690; 71045; 76705; 96374; 99284; J7030; 81003; 81015

== ENCOUNTER 2021-09-24 15:33 | Emergency (ER) | payer OTHER ==
--- NOTE | 2021-09-24 17:58 | RAD REPORT ---
EXAM DESCRIPTION: US - Extremity Venous Uni Ltd - 09/24/2021 5:41 pm CLINICAL HISTORY: SWELLING COMPARISON: None. TECHNIQUE: Real-time sonographic evaluation of the left lower extremity deep venous system was perfo rmed. FINDINGS: Normal compressibility, flow augmentation, phasic flow and spontaneous flow are identified in the left lower extremity common femoral, superficial femoral, popliteal and posterior tibial vein s. No intraluminal filling defects seen. IMPRESSION: No DVT in the left lower extremity.
--- NOTE | 2021-09-24 19:38 | EDPHYS ---
Physician Documentation [facility] Name: Phoebe Romano Age: 36 yrs Sex: Female : 1985 Arrival Date: 09/24/2021 Time: 15:34 Bed 9 Private MD: ED Physician Connor Arenas HPI: 09/24 16:05 This 36 yrs old Female presents to ER via Ambulatory with complaints of Leg Swelling. cp 16:05 The patient presents with pain, that is acute, swelling, tenderness. The complaints cp affect the left ankle and left lower leg. Context: resulted from an unknown cause, the patient can fully bear weight, the patient is able to ambulate, with moderate difficulty, Problem is a result from a previous injury: No. Onset: The symptoms/episode began/occurred few days ago. Modifying factors: the symptoms are aggravated by weight bearing. Associated signs and symptoms: The patient has no apparent associated signs or symptoms. Treatment prior to arrival includes: no previous treatment. 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 - Social history:: Smoking status: Patient denies any tobacco usage or history of. ROS: 16:10 Constitutional: Negative for body aches, chills, fever, poor PO intake. cp 16:10 Eyes: Negative for injury, pain, redness, and discharge. cp 16:10 Neck: Negative for pain with movement, pain at rest, stiffness. 16:10 Cardiovascular: Negative for chest pain, palpitations. 16:10 Respiratory: Negative for cough, shortness of breath, wheezing. 16:10 Abdomen/GI: Negative for abdominal pain, nausea, vomiting, and diarrhea. 16:10 MS/extremity: Positive for pain, swelling, tenderness, of the left lower leg and left ankle, Negative for injury or acute deformity, decreased range of motion, paresthesias. 16:10 Skin: Negative for cellulitis, rash. 16:10 Neuro: Negative for altered mental status, headache, weakness. 16:10 All other systems are negative. Exam: 16:15 Constitutional: The patient appears in no acute distress, alert, awake, non-toxic, well cp developed, well nourished, overweight 16:15 Head/Face: Normocephalic, atraumatic. cp 16:15 Chest/axilla: Inspection: normal. 16:15 Cardiovascular: Rate: normal, Rhythm: regular, Pulses: Pulses are 2+ in left dorsalis pedis artery. 16:15 Respiratory: the patient does not display signs of respiratory distress, Respirations: normal, no use of accessory muscles, no retractions, labored breathing, is not present. 16:15 Abdomen/GI: Exam negative for discomfort, distension, guarding, Inspection: abdomen appears normal. 16:15 Back: pain, is absent, ROM is normal. 16:15 Musculoskeletal/extremity: Extremities: grossly normal except: noted in the left ankle and left lower leg: swelling, tenderness, There is no evidence of decreased ROM, erythema, ROM: full active range of motion, in the left knee and left ankle, the left leg Sensation intact. 16:15 Skin: cellulitis, is not appreciated, no rash present. Vital Signs: 15:57 BP 121 / 87; Pulse 80; Resp 17; Temp 98.5; Pulse Ox 100% ; Weight 95.71 kg; Height 5 ap3 ft. 6 in. (167.64 cm); 15:57 Body Mass Index 34.06 (95.71 kg, 167.64 cm) ap3 MDM: 18:00 Differential diagnosis: DVT, cellulitis, dependent edema, ankle sprain, knee sprain. cp 19:18 Patient medically screened. [facility] 19:37 Data reviewed: vital signs, nurses notes, radiologic studies, ultrasound. 19:37 Counseling: I had a detailed discussion with the patient and/or guardian regarding: the historical points, exam findings, and any diagnostic results supporting the discharge/admit diagnosis, radiology results, the need for outpatient follow up, a family practitioner, to return to the emergency department if symptoms worsen or persist or if there are any questions or concerns that arise at home. Response to treatment: the patient's symptoms have mildly improved after treatment, and as a result, I will discharge patient. 09/24 15:59 Order name: US Extremity Venous Unilateral Ltd; Complete Time: 18:20 09/24 18:20 Interpretation: Report reviewed. cp 09/24 19:36 Order name: Hakeem Wrap; Complete Time: 19:47 cp 09/24 19:36 Order name: Crutches; Complete Time: 19:47 cp Administered Medications: No medications were administered Disposition Summary: 09/24/21 19:37 Discharge Ordered Location: Home cp Problem: new cp Symptoms: have improved cp Condition: Stable cp Diagnosis - Pain in left lower leg cp Followup: cp - With: Private Physician - When: 2 - 3 days - Reason: Recheck today's complaints Discharge Instructions: - Discharge Summary Sheet cp - Musculoskeletal Pain cp Forms: - Medication Reconciliation Form cp - Thank You Letter cp - Antibiotic Education cp - Prescription Opioid Use cp Prescriptions: - Diclofenac Sodium 75 mg Oral Tablet Sustained Release - take 1 tablet by ORAL route 2 times per day; 30 tablet; Refills: 0, Product cp Selection Permitted Addendum: 09/26/2021 07:20 Co-signature as Attending Physician, Connor Arenas MD. r n Signatures: Dispatcher [employer] EDAdolfo Feldman MD MD cha Nieto, Roman, MD MD rn Page, Corey, PA PA cp Prokisch, Amanda, RN RN ap3
--- NOTE | 2021-09-24 19:38 | ER ---
Nurse's Notes [facility] Name: Phoebe Romano Age: 36 yrs Sex: Female : 1985 Arrival Date: 09/24/2021 Time: 15:34 Bed 9 Private MD: Diagnosis: Pain in left lower leg Presentation: 09/24 15:57 Chief complaint: Patient states: she started having swelling in her left lower ap3 extremity a few days ago. Patient states she called her PCP, but was told to come straight here. Patient reports tightness in her lower extremity. Coronavirus screen: At this time, the client does not indicate any symptoms associated with coronavirus-19. Ebola Screen: No symptoms or risks identified at this time. Initial Sepsis Screen: Does the patient meet any 2 criteria? No. Patient's initial sepsis screen is negative. Does the patient have a suspected source of infection? No. Patient's initial sepsis screen is negative. Risk Assessment: Do you want to hurt yourself or someone else? Patient reports no desire to harm self or others. Onset of symptoms was September 21, 2021. 15:57 Method Of Arrival: Ambulatory ap3 15:57 Acuity: JES 4 ap3 Triage Assessment: 15:59 General: Appears in no apparent distress. Behavior is calm, cooperative. Pain: ap3 Complains of pain in left leg. Neuro: Level of Consciousness is awake, alert, obeys commands, Oriented to person, place, time, situation. Cardiovascular: Patient's skin is warm and dry. Respiratory: Airway is patent Respiratory effort is even, unlabored, Respiratory pattern is regular, symmetrical. Musculoskeletal: Swelling present in left leg. 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 - Social history:: Smoking status: Patient denies any tobacco usage or history of. Screenin:01 Abuse screen: Denies threats or abuse. Nutritional screening: No deficits noted. ap3 Tuberculosis screening: No symptoms or risk factors identified. 19:48 Fall Risk None identified. as6 Assessment: 19:49 General: pt was seen by this nurse at discharge. NAD. as6 Vital Signs: 15:57 BP 121 / 87; Pulse 80; Resp 17; Temp 98.5; Pulse Ox 100% ; Weight 95.71 kg; Height 5 ap3 ft. 6 in. (167.64 cm); 15:57 Body Mass Index 34.06 (95.71 kg, 167.64 cm) ap3 ED Course: 15:34 Patient arrived in ED. mr 15:35 Adolfo Bruno PA is PHCP. cp 15:35 Connor Arenas MD is Attending Physician. cp 15:59 Triage completed. ap3 16:00 Arm band placed on right wrist. ap3 17:42 US Extremity Venous Unilateral Ltd In Process Unspecified. EDMS 19:18 Attending Physician role handed off by Connor Arenas MD [facility] 19:18 Adolfo Espinosa MD is Attending Physician. [facility] 19:20 Connor Arenas MD is Attending Physician. cp 19:25 Boone Mariee, ZANE is Primary Nurse. as6 19:47 No provider procedures requiring assistance completed. Patient did not have IV access as6 during this emergency room visit. Crutch training done. Hakeem wrap to left ankle. 19:48 Bed in low position. Call light in reach. as6 Administered Medications: No medications were administered Medication: 19:48 VIS not applicable for this client. as6 Outcome: 19:37 Discharge ordered by . cp 19:48 Discharged to home ambulatory, with crutches. as6 19:48 Condition: stable 19:48 Discharge instructions given to patient, Instructed on discharge instructions, follow up and referral plans. medication usage, crutch walking, Demonstrated understanding of instructions, follow-up care, medications, crutch walking, Prescriptions given X 1. 19:49 Patient left the ED. as6 Signatures: Dispatcher [employer] EDNY Adolfo Espinosa MD MD cha Rivera, Mary mr Adolfo Bruno PA PA cp Prokisch, Amanda, RN RN ap3 Boone Mariee, ZANE RN as6
[2021-09-24 20:52] VITALS: BP 121/87; TEMP 98.5; O2SAT 100
== END 2021-09-24 19:49 | disposition home or self-care (01) ==
LOC: ER 15:33
DX: M79.662 Pain in left lower leg (principal); I10 Essential (primary) hypertension; Z87.442 Personal history of urinary calculi; Z91.048 Other nonmedicinal substance allergy status
CPT/HCPCS: 93971; 99283

== ENCOUNTER 2023-02-11 13:37 | Emergency (ER) | payer BC, OTHER ==
--- OUTSIDE RECORDS SUMMARY | 2023-02-11 13:44 | XMS REPORT | Continuity of Care Document ---
:1985 Author Organization [facility] t Address [address] [place] [address] [address] [place] [address] Care Team Providers Name Role Phone KAYLA ACOSTA Primary Care Physician Unavailable Jerri Olsen Attending Clinician Unavailable [email or web address] Attending Clinician Unavailable BARBARA JACKSON Attending Clinician Unavailable Barbara Jackson DO Attending Clinician CHARITO AUGUSTE Attending Clinician Unavailable JASSON WRIGHT Attending Clinician Unavailable Jasson Wright DO Attending Clinician CARMELO LOPEZ Attending Clinician Unavailable ANDRE NAYLOR Attending Clinician Unavailable PALLAVI PITTS Attending Clinician Unavailable Pallavi Pitts MD Attending Clinician RADIOLOGY Attending Clinician Unavailable Gaurang Warner DO Attending Clinician Greg Liang MD Attending Clinician Doctor Unassigned, [place] Attending Clinician Unavailable BRIT REYES Attending Clinician Unavailable Vanesa Grigsby MD Attending Clinician Charito Stauffer Attending Clinician VANESA GRIGSBY Attending Clinician Unavailable Maulauralinda BARAHONAClinton Attending Clinician Raju_P Attending Clinician Unavailable Physician, No Primary or Family Admitting Clinician Unavaila ble KNOW, DOES_NOT Admitting Clinician Unavailable [email or web address] Admitting Clinician Unavailable JASSON WRIGHT Admitting Clinician Unavailable PALLAVI PITTS Admitting Clinician Unavailable Raju_P Admitting Clinician Unavailable Payers Payer Name Policy Type Policy Number Effective Date Expiration Date Andres bhakta [employer] CHOICE POS [id number] 2019 00:00:00 II [employer] [place] - [id number] 2022 00:00:00 OUT OF STATE Problems Condition Condition Condition Status Onset Resolution Last Treating Co mments Source Name Details Category Date Date Treatment Clinician Date Kidney Kidney Disease Active Univers stone stone 08-08 ity of 00:00: Medical Branch Allergies, Adverse Reactions, Alerts Allergy Allergy Status Severity Reaction(s) Onset Inactive Treating Comm ents Source Name Type Date Date Clinician FENTANYL DRUG Active Rash 2022-0 Univers INGREDI 7- ity of 00:00: 00 Medical Branch Fentanyl Propensi Active Rash 2022-0 Univer s ty to 7-31 ity of adverse 00:00: [place] reaction 00 Medical s Branch adhesive DA Active [place] RASH 2020-0 [facility] 5[facility]18 [place] 00:00: [facility] adhesive DA Active [place] 2020-0 [facility] 5[facility]18 [place] 00:00: [facility] 00 dic [facility] No Known DA Active U 0 [facility] Allergie 07-05 s 00:00: Orthope 00 dic Hospita [facility] No Known DA Active U 2020-0 [facility] Allergie 07-05 s 00:00: Orthope 00 dic Hospita l No Known DA Active U 2020-0 [facility] Allergie 06-26 s 00:00: Orthope 00 dic Hospita l No Known DA Active U 0 [facility] Allergie 06-26 [place] s 00:00: Orthope 00 dic Hospita l adhesive DA Active [place] 2019-03 [facility] tape 2-04 Clear 00:00: Hernadez 00 [facility] adhesive DA Active [place] RASH 2019-03 [facility] tape 2-04 Clear 00:00: [place] 00 [facility] Adhesive Propensi Active Rash 2019-03 Method i Tape-Guillermina ty to 04 st icones adverse 00:00: Hospita reaction 00 l s to drug NO KNOWN Drug Active Univers ALLERGIE Class ity of S [facility] Social History Social Habit Start Date Stop Date Quantity Comments Source Gender identity [facility] Sexual orientation [facility] acute hospital History of tobacco Snuff User Method ist use Hospital Exposure to 2021-10-26 2021-11-05 Not sure University SARS-CoV-2 (event) 00:00:00 11:20:00 [facility] Alcohol intake 2021-05-04 2021-05-04 Lifetime [facility] 00:00:00 00:00:00 non-drinker Hospital (finding) History of Social 2021-05-04 2021-05-[address] function 00:00:00 00:00:00 Hospital Tobacco use and 2020-01-11 2020-01-11 User of [facility]ism exposure 00:00:00 00:00:00 smokeless Hospital tobacco Sex Assigned At [birth year] [facility] 00:00:00 00:00:00 Hospital Smoking Status Start Date Stop Date Source Unknown if ever smoked [facility] Never smoked tobacco [facility] Ex-smoker 2018-06-04 00:00:00 2018-06-04 00:00:00 [facility] Medications Ordered Filled Start Stop Current Ordering Indication Dosage Frequency Signature Comments Components Source Medication Medication Date Date Medication? Clinician (SIG) Name Name cyclobenzap Yes [id number] 10mg Take 1 Univers rine 10 mg 7-31 4 tablet by ity of tablet 00:00: mouth 3 [place] 00 (three) Medical times Branch daily as needed for Muscle Spasms. iopamidol 2021- No [id number] 65mL 65 mL, Univers (ISOVUE 11-05- Intravenou ity o f 370-500 mL) 18:30: 18:30 s, ONCE, 1 [place] injection 00 :00 dose, On Medica l 65 mL Fri [place] 11/05/21 at 1330, Routine morpHINE (4 2021-0 2021- No 4mg 4 mg, Slow Univers mg/mL) 11-05 IV Push, ity of injection 4 17:45: 17:45 ONCE[place] 1 [place] mg 00 :[place] dose, On Medical [facility] 11/05/21 at 1245, STAT ondansetron 2021- No 4mg 4 mg, Slow Univers (ZOFRAN 11-05 IV Push, ity of (PF)) 17:30: 16:29 ONCE, 1 [place] injection 4 00 :00 dose, On Medi isaiah mg Fri [place] 11/05/21 at 1230, Routine NaCl 0.9% No 500mL at 999 Univ ers (NS) bolus 11-05 mL/hr, 500 it y of infusion 16:30: 17:20 mL, IV [place] 500 mL 00 :00 Infusion, Medical ONCE, 1 Branch dose, On Fri11/05/21 at 1130, STAT morpHINE (4 Yes 4mg 4 mg, Slow Univers mg/mL) 11-05 IV Push, ity of injection 4 16:17: Q4HPRN, [place] mg 00 Starting Medical on Fri [place] 11/05/21 at 1117, Until Discontinu ed, Routine, Pain (scale 7-10) sucralfate 2021-0 Yes [id number] 1g Take 1 U nivers 1 gram 8-22 tablet by ity of tablet 00:00: mouth [place] 00 before Medical meals and Branch at bedtime. dicyclomine 2021-0 Yes [id number] 10mg Take 1 Univers (BENTYL) 10 8-22 capsule by it y of mg capsule 00:00: mouth [place] 00 every 8 Medical (eight) Branch hours as needed for Abdominal pain. ondansetron 2021-0 Yes [id number] 4mg Take 1 Univers 4 mg 8-22 tablet by ity of disintegrat 00:00: mouth [place] ing tablet 00 every 8 Medica l (eight) Branch hours as needed for Nausea and Vomiting (N/V). hydrOXYzine 2021-0 Yes [id number] 10mg Take 1 Univers 10 mg 8-22 tablet by ity of tablet 00:00: mouth [place] 00 every 6 Medical (six) Branch hours as needed for Anxiety. sucralfate 2022- No [id number] 1g Take 1 Univers 1 gram 11-05 tablet by ity of tablet 00:00: 00:00 mouth [place] 00 :00 before Medical meals and Branch at bedtime. dicyclomine 2022- No [id number] 10mg Take 1 Univers (BENTYL) 10 11-05 capsule by i ty of mg capsule 00:00: 00:00 mouth [place] 00 :00 every 8 Medical (eight) Branch hours as needed for Abdominal pain. ondansetron 2022- No [id number] 4mg Take 1 Univers 4 mg 11-05 tablet by ity of disintegrat 00:00: 00:00 [place] tablet 00 :00 every 8 Medica l (eight) Branch hours as needed for Nausea and Vomiting (N/V). hydrOXYzine 2022- No [id number] 10mg Take 1 Univers 10 mg 11-05 tablet by ity of tablet 00:00: 00:00 mouth [place] 00 :00 every 6 Medical (six) Branch hours as needed for Anxiety. omeprazole 2021- No [id number] 20mg Take 1 Univers 20 mg 11-05 capsule by ity of capsule 00:00: 04:59 mouth in [place] 00 :00 the Medical morning Branch for 30 days. cephALEXin 2021- No [id number] 500mg Take 1 Univers (KEFLEX) 11-0530 capsule by ity of 500 mg 00:00: 04:59 mouth in [place] capsule 00 :00 the Medical morning Branch and 1 capsule at noon and 1 capsule in the evening. Do all this for 7 days. meloxicam 2020-03 Yes Methodi (MOBIC) 7.5 2-11 st mg tablet 00:00: Hospita 00 l morpHINE 2020-03- No 4mg 4 mg, Slow Un soto injection 4 0-21 10-21 IV Push, ity of mg 01:30: 00:22 ONCE, 1 [place] 00 :00 dose, On Medical Wed Branch 01/03/21 at 2030, STAT ketorolac 2020-03- No 30mg 30 mg, Unive rs (TORADOL) 0-01-04 Slow IV ity of injection 01:15: 00:13 Push, [place] 30 mg 00 :00 ONCE, 1 Medical dose, On Branch 01/03/21 at 2014, Routine
family member caretaker approving Restricted medication : MARTÍN COLLINS iopamidol 2020-03- No [id number] 120mL 120 mL, Univers (ISOVUE 0-01-04 Intravenou ity o f 370-500 mL) 01:15: 00:03 s, ONCE, 1 [place] injection 00 :00 dose, On Medica l 120 mL Wed Branch 01/03/21 at 2015, Routine morpHINE 2020-03- No 6mg 6 mg, Slow Un soto injection 6 001-03 IV Push, ity of mg 00:45: 23:45 ONCE, 1 [place] 00 :00 dose, On Medical Wed Branch 01/03/21 at 1945, STAT NaCl 0.9% 2020-03- No 1000mL at 999 Uni vers (NS) bolus 0-20 10-21 mL/hr, ity of infusion 23:45: 01:16 1,000 mL, [place] 1,000 mL 00 :00 IV Medical Infusion, Branch ONCE, 1 dose, On Fri01/03/21 at 1845, STAT FENTanyl PF 2020-03- No 125ug 125 mcg, Univers (SUBLIMAZE 0-20 10-20 Slow IV ity o f (PF)) 23:45: 22:57 Push, [place] injection 00 :00 ONCE, 1 Medical 125 mcg dose, On Branch 01/03/21 at 1845, Routine olmesartan- 2020-0 Yes 1{tbl} Take 1 Me thodi hydrochloro 2-[address] thiazide 00:00: mouth. Hospita (BENICAR 00 l HCT) 40-25 mg per tablet FENTanyl PF 2019-03- No 50ug 50 mcg, Un soto (SUBLIMAZE 2-30 12-30 Slow IV ity o f (PF)) 16:15: 15:08 Push, [place] injection 00 :00 ONCE, 1 Medical 50 mcg dose, Wed Branch 03/15/20 at 1015, STAT ondansetron 2019-03- No 4mg 4 mg, Slow Univers (ZOFRAN 2-30 12-30 IV Push, ity of (PF)) 15:15: 15:22 Administer [place] injection 4 00 :00 over 15 Medic al mg Minutes, Branch ONCE, 1 dose, 03/15/20 at 0915, STAT famotidine 2019-03 No 20mg 20 mg, IV U nivers (PEPCID 2-30 12-30 Piggyback, ity o f (PF)) 15:15: 15:09 ONCE, 1 [place] injection 00 :00 dose, Wed Medic al 20 mg 03/15/20 Branch at 0915, VINICIUS NaCl 0.9% 2019-03- No 1000mL at 999 Uni vers (NS) bolus 2-30 12-30 mL/hr, ity of infusion 15:00: 16:41 1,000 mL, [place] 1,000 mL 00 :00 IV Medical Infusion, Branch ONCE, 1 dose, 03/15/20 at 0900, VINICIUS ondansetron 2019-03 Yes [id number] 4mg Take 1 Univers 4 mg 2-30 tablet by ity of disintegrat 00:00: mouth [place] ing tablet 00 every 8 Medica l (eight) Branch hours as needed for Nausea and Vomiting (N/V). ondansetron 2019-03 Yes [id number] 4mg Take 1 Univers 4 mg 2-30 tablet by ity of disintegrat 00:00: mouth [place] ing tablet 00 every 8 Medica l (eight) Branch hours as needed for Nausea and Vomiting (N/V). ondansetron 2019-03- No [id number] 4mg Take 1 Univers 4 mg 2-30 08-22 tablet by ity of disintegrat 00:00: 00:00 mouth [place] tablet 00 :00 every 8 Medica l (eight) Branch hours as needed for Nausea and Vomiting (N/V). HYDROcodone 2019-03- No [id number] 1{tbl} Take 1 U nivers -acetaminop 2-30 01-07 tablet by it y of hen 5-325 00:00: 05:59 mouth [place] mg tablet 00 :00 every 4 Medical (four) Branch hours as needed for Pain (scale 7-10) for up to 7 days. Indication s: acute pain diclofenac 2019-03 Yes 75mg Take 1 Unive rs 75 mg EC 0-14 tablet by ity of tablet 00:00: mouth (two) Medical times Branch daily with meals. diclofenac 2019-03 Yes 75mg Take 1 Unive rs 75 mg EC 0-14 tablet by ity of tablet 00:00: mouth 2 (two) Medical times Branch daily with meals. diclofenac 2019-03 Yes 75mg Take 1 Unive rs 75 mg EC 0-14 tablet by ity of tablet 00:00: mouth 2 (two) Medical times Branch daily with meals. diclofenac 2019-03 Yes 75mg Take 1 Unive rs 75 mg EC 0-14 tablet by ity of tablet 00:00: mouth 2 (two) Medical times Branch daily with meals. diclofenac 2019-03 Yes 75mg Take 1 Unive rs 75 mg EC 0-14 tablet by ity of tablet 00:00: mouth 2 (two) Medical times Branch daily with meals. diclofenac 2019-03 Yes 75mg Take 1 Unive rs 75 mg EC 0-14 tablet by ity of tablet 00:00: mouth (two) Medical times Branch daily with meals. diclofenac 2019-03 Yes 75mg Take 1 Unive rs 75 mg EC 0-14 tablet by ity of tablet 00:00: mouth [place] (two) Medical times Branch daily with meals. diclofenac 2019-03 Yes 75mg Take 1 Unive rs 75 mg EC 0-14 tablet by ity of tablet 00:00: mouth (two) Medical times Branch daily with meals. diclofenac 2019-03- No 75mg Take 1 Univ ers 75 mg EC 0-14 07-31 tablet by ity o f tablet 00:00: 00:00 mouth 2 [place] 00 :00 (two) Medical times Branch daily with meals. ketorolac 2019- No 60mg 60 mg, Unive rs (TORADOL) 12-07 Intramuscu ity of injection 03:00: 02:05 lar, ONCE, [place] 60 mg 00 :00 1 dose, Medical Tue Branch 12/07/19 at 2200, [facility] CLINTON MCCOY HYDROcodone 2019- No 1{tbl} 1 tablet, Univers -acetaminop 12-07 Oral, ity of hen (NORCO) 03:00: 02:05 ONCE, 1 [place] 10-325 mg 00 :00 dose, Tue Medic al tablet 1 12/07/19 at [facility] h tablet 2200, Routine ibuprofen 2020-0 Yes [id number] 600mg Take 1 U nivers 600 mg 9-22 tablet by ity of tablet 00:00: mouth [place] 00 every 6 Medical (six) Branch hours as needed for Pain (scale 4-6). cyclobenzap 2020-0 Yes [id number] 10mg Take 1 Univers rine 10 mg 9-22 tablet by ity of tablet 00:00: mouth 3 [place] 00 (three) Medical times Branch daily as needed for Muscle Spasms. ibuprofen 2020-0 Yes [id number] 600mg Take 1 U nivers 600 mg 9-22 tablet by ity of tablet 00:00: mouth [place] 00 every 6 Medical (six) Branch hours as needed for Pain (scale 4-6). cyclobenzap 2020-0 Yes [id number] 10mg Take 1 Univers rine 10 mg 9-22 tablet by ity of tablet 00:00: mouth 3 [place] 00 (three) Medical times Branch daily as needed for Muscle Spasms. ibuprofen 2020-0 Yes [id number] 600mg Take 1 U nivers 600 mg 9-22 tablet by ity of tablet 00:00: mouth [place] 00 every 6 Medical (six) Branch hours as needed for Pain (scale 4-6). cyclobenzap 2020-0 Yes [id number] 10mg Take 1 Univers rine 10 mg 9-22 tablet by ity of tablet 00:00: mouth 3 [place] 00 (three) Medical times Branch daily as needed for Muscle Spasms. ibuprofen 2020-0 Yes [id number] 600mg Take 1 U nivers 600 mg 9-22 tablet by ity of tablet 00:00: mouth [place] 00 every 6 Medical (six) Branch hours as needed for Pain (scale 4-6). cyclobenzap 2020-0 Yes [id number] 10mg Take 1 Univers rine 10 mg 9-22 tablet by ity of tablet 00:00: mouth 3 [place] 00 (three) Medical times Branch daily as needed for Muscle Spasms. ibuprofen 2020-0 Yes [id number] 600mg Take 1 U nivers 600 mg 9-22 tablet by ity of tablet 00:00: mouth [place] 00 every 6 Medical (six) Branch hours as needed for Pain (scale 4-6). cyclobenzap 2020-0 Yes [id number] 10mg Take 1 Univers rine 10 mg 9-22 tablet by ity of tablet 00:00: mouth 3 [place] 00 (three) Medical times Branch daily as needed for Muscle Spasms. ibuprofen 2020-0 Yes [id number] 600mg Take 1 U nivers 600 mg 9-22 tablet by ity of tablet 00:00: mouth [place] 00 every 6 Medical (six) Branch hours as needed for Pain (scale 4-6). cyclobenzap 2020-0 Yes [id number] 10mg Take 1 Univers rine 10 mg 9-22 tablet by ity of tablet 00:00: mouth 3 [place] 00 (three) Medical times Branch daily as needed for Muscle Spasms. ibuprofen 2020-0 Yes [id number] 600mg Take 1 U nivers 600 mg 9-22 tablet by ity of tablet 00:00: mouth [place] 00 every 6 Medical (six) Branch hours as needed for Pain (scale 4-6). cyclobenzap 2020-0 Yes [id number] 10mg Take 1 Univers rine 10 mg 9-22 tablet by ity of tablet 00:00: mouth 3 [place] 00 (three) Medical times Branch daily as needed for Muscle Spasms. ibuprofen 2020-0 Yes [id number] 600mg Take 1 U nivers 600 mg 9-22 tablet by ity of tablet 00:00: mouth [place] 00 every 6 Medical (six) Branch hours as needed for Pain (scale 4-6). cyclobenzap 2020-0 Yes [id number] 10mg Take 1 Univers rine 10 mg 9-22 tablet by ity of tablet 00:00: mouth 3 [place] 00 (three) Medical times Branch daily as needed for Muscle Spasms. ibuprofen 2020-0 Yes [id number] 600mg Take 1 U nivers 600 mg 9-22 tablet by ity of tablet 00:00: mouth [place] 00 every 6 Medical (six) Branch hours as needed for Pain (scale 4-6). cyclobenzap 2020-0 Yes [id number] 10mg Take 1 Univers rine 10 mg 9-22 tablet by ity of tablet 00:00: mouth 3 [place] 00 (three) Medical times Branch daily as needed for Muscle Spasms. ibuprofen 2020-0 Yes [id number] 600mg Take 1 U nivers 600 mg 9-22 tablet by ity of tablet 00:00: mouth [place] 00 every 6 Medical (six) Branch hours as needed for Pain (scale 4-6). cyclobenzap 2020-0 Yes [id number] 10mg Take 1 Univers rine 10 mg 9-22 tablet by ity of tablet 00:00: mouth 3 [place] 00 (three) Medical times Branch daily as needed for Muscle Spasms. ibuprofen 2020-0 Yes [id number] 600mg Take 1 U nivers 600 mg 9-22 tablet by ity of tablet 00:00: mouth [place] 00 every 6 Medical (six) Branch hours as needed for Pain (scale 4-6). cyclobenzap 2020-0 Yes [id number] 10mg Take 1 Univers rine 10 mg 9-22 tablet by ity of tablet 00:00: mouth 3 [place] 00 (three) Medical times Branch daily as needed for Muscle Spasms. ibuprofen 2020-0 Yes [id number] 600mg Take 1 U nivers 600 mg 9-22 tablet by ity of tablet 00:00: mouth [place] 00 every 6 Medical (six) Branch hours as needed for Pain (scale 4-6). cyclobenzap 2020-0 Yes [id number] 10mg Take 1 Univers rine 10 mg 9-22 tablet by ity of tablet 00:00: mouth 3 [place] 00 (three) Medical times Branch daily as needed for Muscle Spasms. ibuprofen 2020-0 Yes [id number] 600mg Take 1 U nivers 600 mg 9-22 tablet by ity of tablet 00:00: mouth [place] 00 every 6 Medical (six) Branch hours as needed for Pain (scale 4-6). cyclobenzap 2020-0 Yes [id number] 10mg Take 1 Univers rine 10 mg 9-22 tablet by ity of tablet 00:00: mouth 3 [place] 00 (three) Medical times Branch daily as needed for Muscle Spasms. ibuprofen 2020-0 Yes [id number] 600mg Take 1 U nivers 600 mg 9-22 tablet by ity of tablet 00:00: mouth [place] 00 every 6 Medical (six) Branch hours as needed for Pain (scale 4-6). cyclobenzap 2020-0 Yes [id number] 10mg Take 1 Univers rine 10 mg 9-22 tablet by ity of tablet 00:00: mouth 3 [place] 00 (three) Medical times Branch daily as needed for Muscle Spasms. ibuprofen 2020-0 Yes [id number] 600mg Take 1 U nivers 600 mg 9-22 tablet by ity of tablet 00:00: mouth [place] 00 every 6 Medical (six) Branch hours as needed for Pain (scale 4-6). cyclobenzap 2020-0 Yes [id number] 10mg Take 1 Univers rine 10 mg 9-22 tablet by ity of tablet 00:00: mouth 3 [place] 00 (three) Medical times Branch daily as needed for Muscle Spasms. ibuprofen 2020-0 Yes [id number] 600mg Take 1 U nivers 600 mg 9-22 tablet by ity of tablet 00:00: mouth [place] 00 every 6 Medical (six) Branch hours as needed for Pain (scale 4-6). cyclobenzap 2020-0 Yes [id number] 10mg Take 1 Univers rine 10 mg 9-22 tablet by ity of tablet 00:00: mouth 3 [place] 00 (three) Medical times Branch daily as needed for Muscle Spasms. ibuprofen 2019-0 3- No [id number] 600mg Take 1 Univers 600 mg 9-22 07-31 tablet by ity of tablet 00:00: 00:00 mouth [place] 00 :00 every 6 Medical (six) Branch hours as needed for Pain (scale 4-6). cyclobenzap 2020-0 3- No [id number] 10mg Take 1 Univers rine 10 mg 9-22 07-31 tablet by ity of tablet 00:00: 00:00 mouth 3 [place] 00 :00 (three) Medical times Branch daily as needed for Muscle Spasms. allopurinol 2019-0 Yes Univer s 300 mg 3-14 ity of tablet 00:00: [place] 00 [facility] Branch allopurinol 2019-0 Yes Univer s 300 mg 3-14 ity of tablet 00:00: [place] Medical Branch allopurinol 2019-0 Yes Univer s 300 mg 3-14 ity of tablet 00:00: [place] Medical Branch allopurinol 2019-0 Yes Univer s 300 mg 3-14 ity of tablet 00:00: [place] 00 Medical Branch allopurinol 2019-0 Yes Univer s 300 mg 3-14 ity of tablet 00:00: [place] 00 Medical Branch allopurinol 2019-0 Yes Univer s 300 mg 3-14 ity of tablet 00:00: [place] 00 Medical Branch allopurinol 2019-0 Yes Univer s 300 mg 3-14 ity of tablet 00:00: [place] 00 Medical Branch allopurinol 2019-0 Yes Univer s 300 mg 3-14 ity of tablet 00:00: [place] 00 Medical Branch allopurinol 2019-0 Yes Univer s 300 mg 3-14 ity of tablet 00:00: [place] 00 Medical Branch allopurinol 2019-0 Yes Univer s 300 mg 3-14 ity of tablet 00:00: [place] [address] Medical Branch allopurinol 2019-0 Yes Univer s 300 mg 3-14 ity of tablet 00:00: [place] 00 Medical Branch allopurinol 2019-0 Yes Univer s 300 mg 3-14 ity of tablet 00:00: [place] [address] Medical Branch allopurinol 2019-0 Yes Univer s 300 mg 3-14 ity of tablet 00:00: [place] [address] Medical Branch allopurinol 2019-0 Yes Univer s 300 mg 3-14 ity of tablet 00:00: [place] [address] Medical Branch allopurinol 2019-0 Yes Univer s 300 mg 3-14 ity of tablet 00:00: [place] [address] Medical Branch allopurinol 2019-0 Yes Univer s 300 mg 3-14 ity of tablet 00:00: [place] [address] Medical Branch allopurinol 2019-0 2023- No Unive rs 300 mg 3-14 07-31 ity of tablet 00:00: 00:00 [place] 00 :00 Medical Branch chlorthalid 2019-0 Yes Univer s one 25 mg 3-13 ity of tablet 00:00: [place] [address] Medical Branch olmesartan 2019-0 Yes Univers 40 mg 3-13 ity of tablet 00:00: [place] [address] Medical Branch levothyroxi 2019-0 Yes Univer s ne 25 mcg 3-13 ity of tablet 00:00: [place] [address] Medical Branch chlorthalid 2019-0 Yes Univer s one 25 mg 3-13 ity of tablet 00:00: [place] [address] Medical Branch olmesartan 2019-0 Yes Univers 40 mg 3-13 ity of tablet 00:00: [place] [address] Medical Branch levothyroxi 2019-0 Yes Univer s ne 25 mcg 3-13 ity of tablet 00:00: [place] [address] Medical Branch chlorthalid 2019-0 Yes Univer s one 25 mg 3-13 ity of tablet 00:00: [place] [address] Medical Branch olmesartan 2019-0 Yes Univers 40 mg 3-13 ity of tablet 00:00: [place] [address] Medical Branch levothyroxi 2019-0 Yes Univer s ne 25 mcg 3-13 ity of tablet 00:00: [place] [address] Medical Branch chlorthalid 2019-0 Yes Univer s one 25 mg 3-13 ity of tablet 00:00: [place] [address] Medical Branch olmesartan 2019-0 Yes Univers 40 mg 3-13 ity of tablet 00:00: [place] [address] Medical Branch levothyroxi 2019-0 Yes Univer s ne 25 mcg 3-13 ity of tablet 00:00: [place] [address] Medical Branch chlorthalid 2019-0 Yes Univer s one 25 mg 3-13 ity of tablet 00:00: [place] [address] Medical Branch olmesartan 2019-0 Yes Univers 40 mg 3-13 ity of tablet 00:00: [place] [address] Medical Branch levothyroxi 2019-0 Yes Univer s ne 25 mcg 3-13 ity of tablet 00:00: [place] [address] Medical Branch chlorthalid 2019-0 Yes Univer s one 25 mg 3-13 ity of tablet 00:00: [place] [address] Medical Branch olmesartan 2019-0 Yes Univers 40 mg 3-13 ity of tablet 00:00: [place] [address] Medical Branch levothyroxi 2019-0 Yes Univer s ne 25 mcg 3-13 ity of tablet 00:00: [place] [address] Medical Branch chlorthalid 2019-0 Yes Univer s one 25 mg 3-13 ity of tablet 00:00: [place] [address] Medical Branch olmesartan 2019-0 Yes Univers 40 mg 3-13 ity of tablet 00:00: [place] [address] Medical Branch levothyroxi 2019-0 Yes Univer s ne 25 mcg 3-13 ity of tablet 00:00: [place] [address] Medical Branch chlorthalid 2019-0 Yes Univer s one 25 mg 3-13 ity of tablet 00:00: [place] [address] Medical Branch olmesartan 2019-0 Yes Univers 40 mg 3-13 ity of tablet 00:00: [place] [address] Medical Branch levothyroxi 2019-0 Yes Univer s ne 25 mcg 3-13 ity of tablet 00:00: [place] [address] Medical Branch chlorthalid 2019-0 Yes Univer s one 25 mg 3-13 ity of tablet 00:00: [place] [address] Medical Branch olmesartan 2019-0 Yes Univers 40 mg 3-13 ity of tablet 00:00: [place] [address] Medical Branch levothyroxi 2019-0 Yes Univer s ne 25 mcg 3-13 ity of tablet 00:00: [place] [address] Medical Branch chlorthalid 2019-0 Yes Univer s one 25 mg 3-13 ity of tablet 00:00: [place] [address] Medical Branch levothyroxi 2019-0 Yes Univer s ne 25 mcg 3-13 ity of tablet 00:00: [place] [address] Medical Branch chlorthalid 2019-0 Yes Univer s one 25 mg 3-13 ity of tablet 00:00: [place] [address] Medical Branch olmesartan 2019-0 Yes Univers 40 mg 3-13 ity of tablet 00:00: [place] [address] Medical Branch olmesartan 2019-0 Yes Univers 40 mg 3-13 ity of tablet 00:00: [address] Branch levothyroxi 2019-0 Yes Univer s ne 25 mcg 3-13 ity of tablet 00:00: [address] Branch chlorthalid 2019-0 Yes Univer s one 25 mg 3-13 ity of tablet 00:00: [address] Branch olmesartan 2019-0 Yes Univers 40 mg 3-13 ity of tablet 00:00: [address] Branch levothyroxi 2019-0 Yes Univer s ne 25 mcg 3-13 ity of tablet 00:00: [address] Branch chlorthalid 2019-0 Yes Univer s one 25 mg 3-13 ity of tablet 00:00: [address] Branch olmesartan 2019-0 Yes Univers 40 mg 3-13 ity of tablet 00:00: [address] Branch levothyroxi 2019-0 Yes Univer s ne 25 mcg 3-13 ity of tablet 00:00: [place] [address] Medical Branch chlorthalid 2019-0 Yes Univer s one 25 mg 3-13 ity of tablet 00:00: [place] [address] [facility] olmesartan 2019-0 Yes [facility] 40 mg 3-13 ity of tablet 00:00: [place] [address] [facility] levothyroxi 2019-0 Yes [facility] ne 25 mcg 3-13 ity of tablet 00:00: [place] [address] [facility] chlorthalid 2019-0 Yes [facility] one 25 mg 3-13 ity of tablet 00:00: [place] [address] [facility] olmesartan 2019-0 Yes [facility] 40 mg 3-13 ity of tablet 00:00: [place] [address] [facility] levothyroxi 2019-0 Yes [facility] ne 25 mcg 3-13 ity of tablet 00:00: [place] 00 [facility] olmesartan 2019-0 Yes [facility] 40 mg 3-13 ity of tablet 00:00: [place] [address] [facility] levothyroxi 2019-0 Yes [facility] ne 25 mcg 3-13 ity of tablet 00:00: [place] [address] [facility] chlorthalid 2019-0 Yes [facility] one 25 mg 3-13 ity of tablet 00:00: [place] [address] [facility] olmesartan 2019-0 Yes [facility] 40 mg 3-13 ity of tablet 00:00: [place] [address] [facility] levothyroxi 2019-0 Yes [facility] ne 25 mcg 3-13 ity of tablet 00:00: [place] [address] [facility] chlorthalid 2019-0 2022- No [facility] rs one 25 mg 3-13 07-31 ity of tablet 00:00: 00:00 [place] 00 :00 [facility] sumatriptan 2019-0 Yes [facility] 100 mg 2-12 ity of tablet 00:00: [place] [address] [facility] sumatriptan 2019-0 Yes [facility] 100 mg 2-12 ity of tablet 00:00: [place] [address] [facility] sumatriptan 2019-0 Yes [facility] 100 mg 2-12 ity of tablet 00:00: [place] [address] [facility] sumatriptan 2019-0 Yes [facility] 100 mg 2-12 ity of tablet 00:00: [place] [address] [facility] sumatriptan 2019-0 Yes [facility] 100 mg 2-12 ity of tablet 00:00: [place] [address] [facility] sumatriptan 2019-0 Yes [facility] 100 mg 2-12 ity of tablet 00:00: [place] 00 [facility] sumatriptan 2019-0 Yes [facility] 100 mg 2-12 ity of tablet 00:00: [place] [address] [facility] sumatriptan 2019-0 Yes [facility] 100 mg 2-12 ity of tablet 00:00: [place] [address] [facility] sumatriptan 2019-0 Yes [facility] 100 mg 2-12 ity of tablet 00:00: [place] [address] [facility] sumatriptan 2019-0 Yes [facility] 100 mg 2-12 ity of tablet 00:00: [place] [address] [facility] sumatriptan 2019-0 Yes [facility] 100 mg 2-12 ity of tablet 00:00: [place] [address] [facility] sumatriptan 2019-0 Yes [facility] 100 mg 2-12 ity of tablet 00:00: [place] 00 [facility] sumatriptan 2019-0 Yes [facility] 100 mg 2-12 ity of tablet 00:00: [place] 00 [facility] sumatriptan 2019-0 Yes [facility] 100 mg 2-12 ity of tablet 00:00: [place] 00 [facility] sumatriptan 2019-0 Yes [facility] 100 mg 2-12 ity of tablet 00:00: [place] 00 [facility] sumatriptan 2019-0 Yes [facility] 100 mg 2-12 ity of tablet 00:00: [place] 00 [facility] sumatriptan 2019-0 2023- No [facility] 100 mg 2-12 - ity of tablet 00:00: 00:00 [place] 00 :00 [facility] azithromyci 2018-0 Yes 250mg Take 1 [facility] vers n 9-19 tablet by ity of (ZITHROMAX 00:00: mouth [place] Z-MARIE) 250 00 SEE-INSTRU Med ical mg tablet CTIONS. Branch Take 500 mg day 1, then 250 mg days 2 to 5. benzonatate 2018-0 Yes 100mg Take 1 [facility] vers 100 mg 9-19 capsule by ity of capsule 00:00: mouth 3 (three) Medical times Branch daily as needed for Cough. azithromyci 2018-0 Yes 250mg Take 1 [facility] vers n 9-19 tablet by ity of (ZITHROMAX 00:00: mouth [place] Z-MARIE) 250 00 SEE-INSTRU Med ical mg tablet CTIONS. Branch Take 500 mg day 1, then 250 mg days 2 to 5. benzonatate 2018-0 Yes 100mg Take 1 [facility] vers 100 mg 9-19 capsule by ity of capsule 00:00: mouth 3 (three) Medical times Branch daily as needed for Cough. azithromyci 2018-0 Yes 250mg Take 1 [facility] vers n 9-19 tablet by ity of (ZITHROMAX 00:00: mouth [place] Z-MARIE) 250 00 SEE-INSTRU Med ical mg tablet CTIONS. Branch Take 500 mg day 1, then 250 mg days 2 to 5. benzonatate 2018-0 Yes 100mg Take 1 [facility] vers 100 mg 9-19 capsule by ity of capsule 00:00: mouth 3 [place] 00 (three) Medical times Branch daily as needed for Cough. azithromyci 2018-0 Yes 250mg Take 1 [facility] vers n 9-19 tablet by ity of (ZITHROMAX 00:00: mouth [place] Z-MARIE) 250 00 SEE-INSTRU Med ical mg tablet CTIONS. Branch Take 500 mg day 1, then 250 mg days 2 to 5. benzonatate 2018-0 Yes 100mg Take 1 [facility] vers 100 mg 9-19 capsule by ity of capsule 00:00: mouth 3 (three) Medical times Branch daily as needed for Cough. azithromyci 2018-0 Yes 250mg Take 1 [facility] vers n 9-19 tablet by ity of (ZITHROMAX 00:00: mouth [place] Z-MARIE) 250 00 SEE-INSTRU Med ical mg tablet CTIONS. Branch Take 500 mg day 1, then 250 mg days 2 to 5. benzonatate 2018-0 Yes 100mg Take 1 [facility] vers 100 mg 9-19 capsule by ity of capsule 00:00: mouth 3 (three) Medical times Branch daily as needed for Cough. azithromyci 2018-0 Yes 250mg Take 1 [facility] vers n 9-19 tablet by ity of (ZITHROMAX 00:00: mouth [place] Z-MARIE) 250 00 SEE-INSTRU Med ical mg tablet CTIONS. Branch Take 500 mg day 1, then 250 mg days 2 to 5. benzonatate 2018-0 Yes 100mg Take 1 [facility] vers 100 mg 9-19 capsule by ity of capsule 00:00: mouth 3 (three) Medical times Branch daily as needed for Cough. azithromyci 2018-0 Yes 250mg Take 1 [facility] vers n 9-19 tablet by ity of (ZITHROMAX 00:00: mouth [place] Z-MARIE) 250 00 SEE-INSTRU Med ical mg tablet CTIONS. Branch Take 500 mg day 1, then 250 mg days 2 to 5. benzonatate 2018-0 Yes 100mg Take 1 [facility] vers 100 mg 9-19 capsule by ity of capsule 00:00: mouth 3 (three) Medical times Branch daily as needed for Cough. azithromyci 2018-0 Yes 250mg Take 1 [facility] vers n 9-19 tablet by ity of (ZITHROMAX 00:00: mouth [place] Z-MARIE) 250 00 SEE-INSTRU Med ical mg tablet CTIONS. Branch Take 500 mg day 1, then 250 mg days 2 to 5. azithromyci 2018-0 Yes 250mg Take 1 [facility] vers n 9-19 tablet by ity of (ZITHROMAX 00:00: mouth [place] Z-MARIE) 250 00 SEE-INSTRU Med ical mg tablet CTIONS. Branch Take 500 mg day 1, then 250 mg days 2 to 5. benzonatate 2018-0 Yes 100mg Take 1 [facility] vers 100 mg 9-19 capsule by ity of capsule 00:00: mouth 3 [place] (three) Medical times Branch daily as needed for Cough. benzonatate 2018-0 Yes 100mg Take 1 [facility] vers 100 mg 9-19 capsule by ity of capsule 00:00: mouth 3 (three) Medical times Branch daily as needed for Cough. azithromyci 2018-0 Yes 250mg Take 1 [facility] vers n 9-19 tablet by ity of (ZITHROMAX 00:00: mouth [place] Z-MARIE) 250 00 SEE-INSTRU Med ical mg tablet CTIONS. Branch Take 500 mg day 1, then 250 mg days 2 to 5. benzonatate 2018-0 Yes 100mg Take 1 [facility] vers 100 mg 9-19 capsule by ity of capsule 00:00: mouth 3 (three) Medical times Branch daily as needed for Cough. azithromyci 2018-0 Yes 250mg Take 1 [facility] vers n 9-19 tablet by ity of (ZITHROMAX 00:00: mouth [place] Z-MARIE) 250 00 SEE-INSTRU Med ical mg tablet CTIONS. Branch Take 500 mg day 1, then 250 mg days 2 to 5. benzonatate 2018-0 Yes 100mg Take 1 [facility] vers 100 mg 9-19 capsule by ity of capsule 00:00: mouth 3 (three) Medical times Branch daily as needed for Cough. azithromyci 2018-0 Yes 250mg Take 1 [facility] vers n 9-19 tablet by ity of (ZITHROMAX 00:00: mouth [place] Z-MARIE) 250 00 SEE-INSTRU Med ical mg tablet CTIONS. Branch Take 500 mg day 1, then 250 mg days 2 to 5. benzonatate 2018-0 Yes 100mg Take 1 [facility] vers 100 mg 9-19 capsule by ity of capsule 00:00: mouth 3 [place] 00 (three) Medical times Branch daily as needed for Cough. azithromyci 2018-0 Yes 250mg Take 1 [facility] vers n 9-19 tablet by ity of (ZITHROMAX 00:00: mouth [place] Z-MARIE) 250 00 SEE-INSTRU Med ical mg tablet CTIONS. Branch Take 500 mg day 1, then 250 mg days 2 to 5. benzonatate 2018-0 Yes 100mg Take 1 [facility] vers 100 mg 9-19 capsule by ity of capsule 00:00: mouth 3 (three) Medical times Branch daily as needed for Cough. azithromyci 2018-0 Yes 250mg Take 1 [facility] vers n 9-19 tablet by ity of (ZITHROMAX 00:00: mouth [place] Z-MARIE) 250 00 SEE-INSTRU Med ical mg tablet CTIONS. Branch Take 500 mg day 1, then 250 mg days 2 to 5. benzonatate 2018-0 Yes 100mg Take 1 [facility] vers 100 mg 9-19 capsule by ity of capsule 00:00: mouth (three) Medical times Branch daily as needed for Cough. azithromyci 2018-0 Yes 250mg Take 1 [facility] vers n 9-19 tablet by ity of (ZITHROMAX 00:00: mouth [place] Z-MARIE) 250 00 SEE-INSTRU Med ical mg tablet CTIONS. Branch Take 500 mg day 1, then 250 mg days 2 to 5. benzonatate 2018-0 Yes 100mg Take 1 [facility] vers 100 mg 9-19 capsule by ity of capsule 00:00: mouth (three) Medical times Branch daily as needed for Cough. azithromyci 2018-0 Yes 250mg Take 1 [facility] vers n 9-19 tablet by ity of (ZITHROMAX 00:00: mouth [place] Z-MARIE) 250 00 SEE-INSTRU Med ical mg tablet CTIONS. Branch Take 500 mg day 1, then 250 mg days 2 to 5. benzonatate 2018-0 Yes 100mg Take 1 [facility] vers 100 mg 9-19 capsule by ity of capsule 00:00: mouth 3 (three) Medical times Branch daily as needed for Cough. azithromyci 2018-0 3- No 250mg Take 1 Un soto n 9-19 07-31 tablet by ity of (ZITHROMAX 00:00: 00:00 mouth [place] Z-MARIE) 250 00 :00 SEE-INSTRU Med ical mg tablet CTIONS. Branch Take 500 mg day 1, then 250 mg days 2 to 5. benzonatate 2022- No 100mg Take 1 Un soto 100 mg 12-03 capsule by ity of capsule 00:00: 00:00 mouth 3 [place] 00 :00 (three) Medical times Branch daily as needed for Cough. ciprofloxac 2016-0 Yes 500mg Take 1 Tab [facility] in HCl 4-13 by mouth 2 ity of (CIPRO) 500 00:00: (two) [place] mg tablet 00 times Medical daily. Branch metroNIDAZO 2016-0 Yes 500mg Take 1 Tab [facility] LE (FLAGYL) 4-13 by mouth 2 it y of 500 mg 00:00: (two) [place] tablet 00 times Medical daily. Branch ondansetron 2016-0 Yes 8mg Take 1 Tab [facility] (ZOFRAN 4-13 by mouth ity of ODT) 8 mg 00:00: every 8 [place] disintegrat 00 (eight) Medic al ing tablet hours as Branc h needed for Nausea and Vomiting (N/V). hyoscyamine 2016-[address] 1 U nivers sulfate 4-13 Tab under ity of (LEVSIN/SL) 00:00: the tongue [place] 0.125 mg 00 every 4 Medical sublingual (four) Branch tablet hours as needed for Pain (scale 4-6). ciprofloxac 2016-0 Yes 500mg Take 1 Tab [facility] in HCl 4-13 by mouth 2 ity of (CIPRO) 500 00:00: (two) [place] mg tablet 00 times Medical daily. Branch metroNIDAZO 2016-0 Yes 500mg Take 1 Tab [facility] LE (FLAGYL) 4-13 by mouth 2 it y of 500 mg 00:00: (two) [place] tablet 00 times Medical daily. Branch ondansetron 2016-0 Yes 8mg Take 1 Tab [facility] (ZOFRAN 4-13 by mouth ity of ODT) 8 mg 00:00: every 8 [place] disintegrat 00 (eight) Medic al ing tablet hours as Branc h needed for Nausea and Vomiting (N/V). hyoscyamine 2016-[address] 1 U nivers sulfate 4-13 Tab under ity of (LEVSIN/SL) 00:00: the tongue [place] 0.125 mg 00 every 4 Medical sublingual (four) Branch tablet hours as needed for Pain (scale 4-6). ciprofloxac 2016-0 Yes 500mg Take 1 Tab [facility] in HCl 4-13 by mouth 2 ity of (CIPRO) 500 00:00: (two) [place] mg tablet 00 times Medical daily. Branch metroNIDAZO 2016-0 Yes 500mg Take 1 Tab [facility] LE (FLAGYL) 4-13 by mouth 2 it y of 500 mg 00:00: (two) [place] tablet 00 times Medical daily. Branch ondansetron 2016-0 Yes 8mg Take 1 Tab [facility] (ZOFRAN 4-13 by mouth ity of ODT) 8 mg 00:00: every 8 [place] disintegrat 00 (eight) Medic al ing tablet hours as Branc h needed for Nausea and Vomiting (N/V). hyoscyamine 2016-[address] 1 U nivers sulfate 4-13 Tab under ity of (LEVSIN/SL) 00:00: the tongue [place] 0.125 mg 00 every 4 Medical sublingual (four) Branch tablet hours as needed for Pain (scale 4-6). ciprofloxac 2016-0 Yes 500mg Take 1 Tab [facility] in HCl 4-13 by mouth 2 ity of (CIPRO) 500 00:00: (two) [place] mg tablet 00 times Medical daily. Branch metroNIDAZO 2016-0 Yes 500mg Take 1 Tab [facility] LE (FLAGYL) 4-13 by mouth 2 it y of 500 mg 00:00: (two) [place] tablet 00 times Medical daily. Branch ondansetron 2016-0 Yes 8mg Take 1 Tab [facility] (ZOFRAN 4-13 by mouth ity of ODT) 8 mg 00:00: every 8 [place] disintegrat 00 (eight) Medic al ing tablet hours as Branc h needed for Nausea and Vomiting (N/V). hyoscyamine 2016-[address] 1 U nivers sulfate 4-13 Tab under ity of (LEVSIN/SL) 00:00: the tongue [place] 0.125 mg 00 every 4 Medical sublingual (four) Branch tablet hours as needed for Pain (scale 4-6). ciprofloxac 2016-0 Yes 500mg Take 1 Tab [facility] in HCl 4-13 by mouth 2 ity of (CIPRO) 500 00:00: (two) [place] mg tablet 00 times Medical daily. Branch metroNIDAZO 2016-0 Yes 500mg Take 1 Tab [facility] LE (FLAGYL) 4-13 by mouth 2 it y of 500 mg 00:00: (two) [place] tablet 00 times Medical daily. Branch ondansetron 2016-0 Yes 8mg Take 1 Tab [facility] (ZOFRAN 4-13 by mouth ity of ODT) 8 mg 00:00: every 8 [place] disintegrat 00 (eight) Medic al ing tablet hours as Branc h needed for Nausea and Vomiting (N/V). hyoscyamine 2016-[address] 1 U nivers sulfate 4-13 Tab under ity of (LEVSIN/SL) 00:00: the tongue [place] 0.125 mg 00 every 4 Medical sublingual (four) Branch tablet hours as needed for Pain (scale 4-6). ciprofloxac 2016-0 Yes 500mg Take 1 Tab [facility] in HCl 4-13 by mouth 2 ity of (CIPRO) 500 00:00: (two) [place] mg tablet 00 times Medical daily. Branch metroNIDAZO 2016-0 Yes 500mg Take 1 Tab [facility] LE (FLAGYL) 4-13 by mouth 2 it y of 500 mg 00:00: (two) [place] tablet 00 times Medical daily. Branch ondansetron 2016-0 Yes 8mg Take 1 Tab [facility] (ZOFRAN 4-13 by mouth ity of ODT) 8 mg 00:00: every 8 [place] disintegrat 00 (eight) Medic al ing tablet hours as Branc h needed for Nausea and Vomiting (N/V). hyoscyamine 2016-[address] 1 U nivers sulfate 4-13 Tab under ity of (LEVSIN/SL) 00:00: the tongue [place] 0.125 mg 00 every 4 Medical sublingual (four) Branch tablet hours as needed for Pain (scale 4-6). ciprofloxac 2016-0 Yes 500mg Take 1 Tab [facility] in HCl 4-13 by mouth 2 ity of (CIPRO) 500 00:00: (two) [place] mg tablet 00 times Medical daily. Branch metroNIDAZO 2016-0 Yes 500mg Take 1 Tab [facility] LE (FLAGYL) 4-13 by mouth 2 it y of 500 mg 00:00: (two) [place] tablet 00 times Medical daily. Branch ciprofloxac 2016-0 Yes 500mg Take 1 Tab [facility] in HCl 4-13 by mouth 2 ity of (CIPRO) 500 00:00: (two) [place] mg tablet 00 times Medical daily. Branch metroNIDAZO 2016-0 Yes 500mg Take 1 Tab [facility] LE (FLAGYL) 4-13 by mouth 2 it y of 500 mg 00:00: (two) [place] tablet 00 times Medical daily. Branch ondansetron 2016-0 Yes 8mg Take 1 Tab [facility] (ZOFRAN 4-13 by mouth ity of ODT) 8 mg 00:00: every 8 [place] disintegrat 00 (eight) Medic al ing tablet hours as Branc h needed for Nausea and Vomiting (N/V). hyoscyamine 2016-[address] 1 U nivers sulfate 4-13 Tab under ity of (LEVSIN/SL) 00:00: the tongue [place] 0.125 mg 00 every 4 Medical sublingual (four) Branch tablet hours as needed for Pain (scale 4-6). ondansetron 2016-0 Yes 8mg Take 1 Tab [facility] (ZOFRAN 4-13 by mouth ity of ODT) 8 mg 00:00: every 8 [place] disintegrat 00 (eight) Medic al ing tablet hours as Branc h needed for Nausea and Vomiting (N/V). hyoscyamine 2016-[address] 1 U nivers sulfate 4-13 Tab under ity of (LEVSIN/SL) 00:00: the tongue [place] 0.125 mg 00 every 4 Medical sublingual (four) Branch tablet hours as needed for Pain (scale 4-6). ciprofloxac 2016-0 Yes 500mg Take 1 Tab [facility] in HCl 4-13 by mouth 2 ity of (CIPRO) 500 00:00: (two) [place] mg tablet 00 times Medical daily. Branch metroNIDAZO 2016-0 Yes 500mg Take 1 Tab [facility] LE (FLAGYL) 4-13 by mouth 2 it y of 500 mg 00:00: (two) [place] tablet 00 times Medical daily. Branch ondansetron 2016-0 Yes 8mg Take 1 Tab [facility] (ZOFRAN 4-13 by mouth ity of ODT) 8 mg 00:00: every 8 [place] disintegrat 00 (eight) Medic al ing tablet hours as Branc h needed for Nausea and Vomiting (N/V). hyoscyamine 2016-[address] 1 U nivers sulfate 4-13 Tab under ity of (LEVSIN/SL) 00:00: the tongue [place] 0.125 mg 00 every 4 Medical sublingual (four) Branch tablet hours as needed for Pain (scale 4-6). ciprofloxac 2016-0 Yes 500mg Take 1 Tab [facility] in HCl 4-13 by mouth 2 ity of (CIPRO) 500 00:00: (two) [place] mg tablet 00 times Medical daily. Branch metroNIDAZO 2016-0 Yes 500mg Take 1 Tab [facility] LE (FLAGYL) 4-13 by mouth 2 it y of 500 mg 00:00: (two) [place] tablet 00 times Medical daily. Branch ondansetron 2016-0 Yes 8mg Take 1 Tab [facility] (ZOFRAN 4-13 by mouth ity of ODT) 8 mg 00:00: every 8 [place] disintegrat 00 (eight) Medic al ing tablet hours as Branc h needed for Nausea and Vomiting (N/V). hyoscyamine 2016-[address] 1 U nivers sulfate 4-13 Tab under ity of (LEVSIN/SL) 00:00: the tongue [place] 0.125 mg 00 every 4 Medical sublingual (four) Branch tablet hours as needed for Pain (scale 4-6). ciprofloxac 2016-0 Yes 500mg Take 1 Tab [facility] in HCl 4-13 by mouth 2 ity of (CIPRO) 500 00:00: (two) [place] mg tablet 00 times Medical daily. Branch metroNIDAZO 2016-0 Yes 500mg Take 1 Tab [facility] LE (FLAGYL) 4-13 by mouth 2 it y of 500 mg 00:00: (two) [place] tablet 00 times Medical daily. Branch ondansetron 2016-0 Yes 8mg Take 1 Tab [facility] (ZOFRAN 4-13 by mouth ity of ODT) 8 mg 00:00: every 8 [place] disintegrat 00 (eight) Medic al ing tablet hours as Branc h needed for Nausea and Vomiting (N/V). hyoscyamine 2016-[address] 1 U nivers sulfate 4-13 Tab under ity of (LEVSIN/SL) 00:00: the tongue [place] 0.125 mg 00 every 4 Medical sublingual (four) Branch tablet hours as needed for Pain (scale 4-6). ciprofloxac 2016-0 Yes 500mg Take 1 Tab [facility] in HCl 4-13 by mouth 2 ity of (CIPRO) 500 00:00: (two) [place] mg tablet 00 times Medical daily. Branch metroNIDAZO 2016-0 Yes 500mg Take 1 Tab [facility] LE (FLAGYL) 4-13 by mouth 2 it y of 500 mg 00:00: (two) [place] tablet 00 times Medical daily. Branch ondansetron 2016-0 Yes 8mg Take 1 Tab [facility] (ZOFRAN 4-13 by mouth ity of ODT) 8 mg 00:00: every 8 [place] disintegrat 00 (eight) Medic al ing tablet hours as Branc h needed for Nausea and Vomiting (N/V). hyoscyamine 2016-[address] 1 U nivers sulfate 4-13 Tab under ity of (LEVSIN/SL) 00:00: the tongue [place] 0.125 mg 00 every 4 Medical sublingual (four) Branch tablet hours as needed for Pain (scale 4-6). ciprofloxac 2016-0 Yes 500mg Take 1 Tab [facility] in HCl 4-13 by mouth 2 ity of (CIPRO) 500 00:00: (two) [place] mg tablet 00 times Medical daily. Branch metroNIDAZO 2016-0 Yes 500mg Take 1 Tab [facility] LE (FLAGYL) 4-13 by mouth 2 it y of 500 mg 00:00: (two) [place] tablet 00 times Medical daily. Branch ondansetron 2016-0 Yes 8mg Take 1 Tab [facility] (ZOFRAN 4-13 by mouth ity of ODT) 8 mg 00:00: every 8 [place] disintegrat 00 (eight) Medic al ing tablet hours as Branc h needed for Nausea and Vomiting (N/V). hyoscyamine 2016-[address] 1 U nivers sulfate 4-13 Tab under ity of (LEVSIN/SL) 00:00: the tongue [place] 0.125 mg 00 every 4 Medical sublingual (four) Branch tablet hours as needed for Pain (scale 4-6). ciprofloxac 2016-0 Yes 500mg Take 1 Tab [facility] in HCl 4-13 by mouth 2 ity of (CIPRO) 500 00:00: (two) [place] mg tablet 00 times Medical daily. Branch metroNIDAZO 2016-0 Yes 500mg Take 1 Tab [facility] LE (FLAGYL) 4-13 by mouth 2 it y of 500 mg 00:00: (two) [place] tablet 00 times Medical daily. Branch hyoscyamine 2016-[address] 1 U nivers sulfate 4-13 Tab under ity of (LEVSIN/SL) 00:00: the tongue [place] 0.125 mg 00 every 4 Medical sublingual (four) Branch tablet hours as needed for Pain (scale 4-6). ciprofloxac 2016-0 Yes 500mg Take 1 Tab [facility] in HCl 4-13 by mouth 2 ity of (CIPRO) 500 00:00: (two) [place] mg tablet 00 times Medical daily. Branch metroNIDAZO 2016-0 Yes 500mg Take 1 Tab [facility] LE (FLAGYL) 4-13 by mouth 2 it y of 500 mg 00:00: (two) [place] tablet 00 times Medical daily. Branch ondansetron 2016-0 Yes 8mg Take 1 Tab [facility] (ZOFRAN 4-13 by mouth ity of ODT) 8 mg 00:00: every 8 [place] disintegrat 00 (eight) Medic al ing tablet hours as Branc h needed for Nausea and Vomiting (N/V). hyoscyamine 2016-[address] 1 U nivers sulfate 4-13 Tab under ity of (LEVSIN/SL) 00:00: the tongue [place] 0.125 mg 00 every 4 Medical sublingual (four) Branch tablet hours as needed for Pain (scale 4-6). ciprofloxac 2016-0 Yes 500mg Take 1 Tab [facility] in HCl 4-13 by mouth 2 ity of (CIPRO) 500 00:00: (two) [place] mg tablet 00 times Medical daily. Branch metroNIDAZO 2016-0 Yes 500mg Take 1 Tab [facility] LE (FLAGYL) 4-13 by mouth 2 it y of 500 mg 00:00: (two) [place] tablet 00 times Medical daily. Branch ondansetron 2016-0 Yes 8mg Take 1 Tab [facility] (ZOFRAN 4-13 by mouth ity of ODT) 8 mg 00:00: every 8 [place] disintegrat 00 (eight) Medic al ing tablet hours as Branc h needed for Nausea and Vomiting (N/V). hyoscyamine 2016-[address] 1 U nivers sulfate -13 Tab under ity of (LEVSIN/SL) 00:00: the tongue [place] 0.125 mg 00 every 4 Medical sublingual (four) Branch tablet hours as needed for Pain (scale 4-6). ciprofloxac 2022- No 500mg Take 1 Tab [facility] in HCl 06-27 by mouth 2 ity of (CIPRO) 500 00:00: 00:00 (two) [place] tablet 00 :00 times Medical daily. Branch metroNIDAZO 2022- No 500mg Take 1 Tab [facility] LE (FLAGYL) 06-27 by mouth 2 i ty of 500 mg 00:00: 00:00 (two) [place] tablet 00 :00 times Medical daily. Branch hyoscyamine 2022- No .125mg Place 1 [facility] sulfate 06-27 Tab under ity of (LEVSIN/SL) 00:00: 00:00 the tongue [place] 0.125 mg 00 :00 every 4 Medical sublingual (four) Branch tablet hours as needed for Pain (scale 4-6). ondansetron 2021- No 8mg Take 1 Tab [facility] (ZOFRAN 06-27 08-22 by mouth ity of ODT) 8 mg 00:00: 00:00 every 8 [place] disintegr[place] 00 :00 (eight) Medic al ing tablet hours as Branc h needed for Nausea and Vomiting (N/V). acetaminoph Yes 1{tbl} Take 1 Tab [facility] en-codeine 9-11 by mouth ity o f (TYLENOL 00:00: every 4 [place] #4) 300-60 00 (four) Medical mg tablet hours as Branch needed for Pain. tamsulosin Yes .4mg Take 1 Cap U nivers (FLOMAX) 9-11 by mouth ity of 0.4 mg 24 00:00: at [place] hr capsule 00 bedtime. Medic al Branch acetaminoph Yes 1{tbl} Take 1 Tab [facility] en-codeine 9-11 by mouth ity o f (TYLENOL 00:00: every 4 [place] #4) 300-60 00 (four) Medical mg tablet hours as Branch needed for Pain. tamsulosin 2015-0 Yes .4mg Take 1 Cap U nivers (FLOMAX) 9-11 by mouth ity of 0.4 mg 24 00:00: at [place] hr capsule 00 bedtime. Medic al Branch acetaminoph Yes 1{tbl} Take 1 Tab [facility] en-codeine 9-11 by mouth ity o f (TYLENOL 00:00: every 4 [place] #4) 300-60 00 (four) Medical mg tablet hours as Branch needed for Pain. tamsulosin Yes .4mg Take 1 Cap U nivers (FLOMAX) 9-11 by mouth ity of 0.4 mg 24 00:00: at [place] hr capsule 00 bedtime. Medic al Branch acetaminoph Yes 1{tbl} Take 1 Tab [facility] en-codeine 9-11 by mouth ity o f (TYLENOL 00:00: every 4 [place] #4) 300-60 00 (four) Medical mg tablet hours as Branch needed for Pain. tamsulosin Yes .4mg Take 1 Cap U nivers (FLOMAX) 9-11 by mouth ity of 0.4 mg 24 00:00: at [place] hr capsule 00 bedtime. Medic al Branch acetaminoph Yes 1{tbl} Take 1 Tab [facility] en-codeine 9-11 by mouth ity o f (TYLENOL 00:00: every 4 [place] #4) 300-60 00 (four) Medical mg tablet hours as Branch needed for Pain. tamsulosin Yes .4mg Take 1 Cap U nivers (FLOMAX) 9-11 by mouth ity of 0.4 mg 24 00:00: at [place] hr capsule 00 bedtime. Medic al Branch acetaminoph Yes 1{tbl} Take 1 Tab [facility] en-codeine 9-11 by mouth ity o f (TYLENOL 00:00: every 4 [place] #4) 300-60 00 (four) Medical mg tablet hours as Branch needed for Pain. acetaminoph Yes 1{tbl} Take 1 Tab [facility] en-codeine 9-11 by mouth ity o f (TYLENOL 00:00: every 4 [place] #4) 300-60 00 (four) Medical mg tablet hours as Branch needed for Pain. tamsulosin Yes .4mg Take 1 Cap U nivers (FLOMAX) 9-11 by mouth ity of 0.4 mg 24 00:00: at [place] hr capsule 00 bedtime. Medic al Branch tamsulosin 2014-0 Yes .4mg Take 1 Cap U nivers (FLOMAX) 9-11 by mouth ity of 0.4 mg 24 00:00: at [place] hr capsule 00 bedtime. Medic al Branch acetaminoph Yes 1{tbl} Take 1 Tab [facility] en-codeine 9-11 by mouth ity o f (TYLENOL 00:00: every 4 [place] #4) 300-60 00 (four) Medical mg tablet hours as Branch needed for Pain. tamsulosin 2014-0 Yes .4mg Take 1 Cap U nivers (FLOMAX) 9-11 by mouth ity of 0.4 mg 24 00:00: at [place] hr capsule 00 bedtime. Medic al Branch acetaminoph Yes 1{tbl} Take 1 Tab [facility] en-codeine 9-11 by mouth ity o f (TYLENOL 00:00: every 4 [place] #4) 300-60 00 (four) Medical mg tablet hours as Branch needed for Pain. tamsulosin 0 Yes .4mg Take 1 Cap U nivers (FLOMAX) 9-11 by mouth ity of 0.4 mg 24 00:00: at [place] hr capsule 00 bedtime. Medic al Branch acetaminoph Yes 1{tbl} Take 1 Tab [facility] en-codeine 9-11 by mouth ity o f (TYLENOL 00:00: every 4 [place] #4) 300-60 00 (four) Medical mg tablet hours as Branch needed for Pain. tamsulosin 2014-0 Yes .4mg Take 1 Cap U nivers (FLOMAX) 9-11 by mouth ity of 0.4 mg 24 00:00: at [place] hr capsule 00 bedtime. Medic al Branch acetaminoph Yes 1{tbl} Take 1 Tab Univers en-codeine 9-11 by mouth ity o f (TYLENOL 00:00: every 4 [place] #4) 300-60 00 (four) Medical mg tablet hours as Branch needed for Pain. tamsulosin 2014-0 Yes .4mg Take 1 Cap U nivers (FLOMAX) 9-11 by mouth ity of 0.4 mg 24 00:00: at [place] hr capsule 00 bedtime. Medic al Branch acetaminoph Yes 1{tbl} Take 1 Tab Univers en-codeine 9-11 by mouth ity o f (TYLENOL 00:00: every 4 [place] #4) 300-60 00 (four) Medical mg tablet hours as Branch needed for Pain. tamsulosin 2014-0 Yes .4mg Take 1 Cap U nivers (FLOMAX) 9-11 by mouth ity of 0.4 mg 24 00:00: at [place] hr capsule 00 bedtime. Medic al [place] acetaminoph Yes 1{tbl} Take 1 Tab Univers en-codeine 9-11 by mouth ity o f (TYLENOL 00:00: every 4 [place] #4) 300-60 00 (four) Medical mg tablet hours as Branch needed for Pain. tamsulosin 2014-0 Yes .4mg Take 1 Cap U nivers (FLOMAX) 9-11 by mouth ity of 0.4 mg 24 00:00: at [place] hr capsule 00 bedtime. Medic al [place] acetaminoph Yes 1{tbl} Take 1 Tab Univers en-codeine 9-11 by mouth ity o f (TYLENOL 00:00: every 4 [place] #4) 300-60 00 (four) Medical mg tablet hours as Branch needed for Pain. tamsulosin 2014-0 Yes .4mg Take 1 Cap [facility] nivers (FLOMAX) 9-11 by mouth ity of 0.4 mg 24 00:00: at [place] hr capsule 00 bedtime. Medic al [place] acetaminoph Yes 1{tbl} Take 1 Tab [facility] en-codeine 9-11 by mouth ity o f (TYLENOL 00:00: every 4 [place] #4) 300-60 00 (four) Medical mg tablet hours as Branch needed for Pain. tamsulosin 2014-0 Yes .4mg Take 1 Cap [facility] nivers (FLOMAX) 9-11 by mouth ity of 0.4 mg 24 00:00: at [place] hr capsule 00 bedtime. Medic al Branch acetaminoph Yes 1{tbl} Take 1 Tab Univers en-codeine 9-11 by mouth ity o f (TYLENOL 00:00: every 4 [place] #4) 300-60 00 (four) Medical mg tablet hours as Branch needed for Pain. tamsulosin 2014-0 Yes .4mg Take 1 Cap [facility] nivers (FLOMAX) 11-25 by mouth ity of 0.4 mg 24 00:00: at [place] hr capsule 00 bedtime. Medic al Branch acetaminoph 2022- No 1{tbl} Take 1 Tab [facility] en-codeine 11-25 by mouth ity of (TYLENOL 00:00: 00:00 every 4 [place] #4) 300-60 00 :00 (four) Medical mg tablet hours as Branch needed for Pain. tamsulosin 2022- No .4mg Take 1 Cap [facility] (FLOMAX) 11-25 by mouth ity of 0.4 mg 24 00:00: 00:00 at [place] hr capsule 00 :00 bedtime. Medic al Branch clindamycin Yes Apply to Un soto (CLEOCIN T) 6-15 area(s) 2 ity of 1 % 00:00: (two) [place] solution 00 times Medical daily. Branch clindamycin Yes Apply to [facility] (CLEOCIN T) 6-15 area(s) 2 ity of 1 % 00:00: (two) [place] solution 00 times Medical daily. Branch clindamycin Yes Apply to [facility] (CLEOCIN T) 6-15 area(s) 2 ity of 1 % 00:00: (two) [place] solution 00 times Medical daily. Branch clindamycin Yes Apply to [facility] (CLEOCIN T) 6-15 area(s) 2 ity of 1 % 00:00: (two) [place] solution 00 times Medical daily. Branch clindamycin Yes Apply to [facility] (CLEOCIN T) 6-15 area(s) 2 ity of 1 % 00:00: (two) [place] solution 00 times Medical daily. Branch clindamycin Yes Apply to [facility] (CLEOCIN T) 6-15 area(s) 2 ity of 1 % 00:00: (two) [place] solution 00 times Medical daily. Branch clindamycin 2013- Yes Apply to [facility] (CLEOCIN T) 6-15 area(s) 2 ity of 1 % 00:00: (two) [place] solution 00 times Medical daily. Branch clindamycin 2013- Yes Apply to [facility] (CLEOCIN T) 6-15 area(s) 2 ity of 1 % 00:00: (two) [place] solution 00 times Medical daily. Branch clindamycin Yes Apply to [facility] (CLEOCIN T) 6-15 area(s) 2 ity of 1 % 00:00: (two) [place] solution 00 times Medical daily. Branch clindamycin Yes Apply to [facility] (CLEOCIN T) 6-15 area(s) 2 ity of 1 % 00:00: (two) [place] solution 00 times Medical daily. Branch clindamycin Yes Apply to [facility] (CLEOCIN T) 6-15 area(s) 2 ity of 1 % 00:00: (two) [place] solution 00 times Medical daily. Branch clindamycin Yes Apply to [facility] (CLEOCIN T) 6-15 area(s) 2 ity of 1 % 00:00: (two) [place] solution 00 times Medical daily. Branch clindamycin Yes Apply to [facility] (CLEOCIN T) 6-15 area(s) 2 ity of 1 % 00:00: (two) [place] solution 00 times Medical daily. Branch clindamycin Yes Apply to [facility] (CLEOCIN T) 6-15 area(s) 2 ity of 1 % 00:00: (two) [place] solution 00 times Medical daily. Branch clindamycin Yes Apply to [facility] (CLEOCIN T) 6-15 area(s) 2 ity of 1 % 00:00: (two) [place] solution 00 times Medical daily. Branch clindamycin Yes Apply to [facility] (CLEOCIN T) 6-15 area(s) 2 ity of 1 % 00:00: (two) [place] solution 00 times Medical daily. Branch clindamycin 2022- No Apply to U nivers (CLEOCIN T) 6-15 07-31 area(s) 2 it y of 1 % 00:00: 00:00 (two) [place] solution 00 :00 times Medical daily. Branch HYDROcodone Yes 1{tbl} Take 1-2 Univers -acetaminop 6-14 Tabs by ity o f hen (NORCO 00:00: mouth [place] 5) 5-325 mg 00 every 4 Medic al tablet (four) Branch hours. oxybutynin 2014-0 Yes 5mg Take 1 Tab U nivers XL 6-14 by mouth ity of (DITROPAN 00:00: daily. [place] XL) 5 mg 24 00 Medical hr tablet Branch HYDROcodone 0 Yes 1{tbl} Take 1-2 Univers -acetaminop 6-14 Tabs by ity o f hen (NORCO 00:00: mouth [place] 5) 5-325 mg 00 every 4 Medic al tablet (four) Branch hours. oxybutynin 2013-0 Yes 5mg Take 1 Tab U nivers XL 6-14 by mouth ity of (DITROPAN 00:00: daily. [place] XL) 5 mg 24 00 Medical hr tablet Branch HYDROcodone Yes 1{tbl} Take 1-2 Univers -acetaminop 6-14 Tabs by ity o f hen (NORCO 00:00: mouth [place] 5) 5-325 mg 00 every 4 Medic al tablet (four) Branch hours. oxybutynin 2013- Yes 5mg Take 1 Tab U nivers XL 6-14 by mouth ity of (DITROPAN 00:00: daily. [place] XL) 5 mg 24 00 Medical hr tablet Branch HYDROcodone Yes 1{tbl} Take 1-2 Univers -acetaminop 6-14 Tabs by ity o f hen (NORCO 00:00: mouth [place] 5) 5-325 mg 00 every 4 Medic al tablet (four) Branch hours. oxybutynin 2013- Yes 5mg Take 1 Tab U nivers XL 6-14 by mouth ity of (DITROPAN 00:00: daily. [place] XL) 5 mg 24 00 Medical hr tablet Branch HYDROcodone 0 Yes 1{tbl} Take 1-2 Univers -acetaminop 6-14 Tabs by ity o f hen (NORCO 00:00: mouth [place] 5) 5-325 mg 00 every 4 Medic al tablet (four) Branch hours. HYDROcodone 2013-0 Yes 1{tbl} Take 1-2 Univers -acetaminop 6-14 Tabs by ity o f hen (NORCO 00:00: mouth [place] 5) 5-325 mg 00 every 4 Medic al tablet (four) Branch hours. oxybutynin 2013-0 Yes 5mg Take 1 Tab U nivers XL 6-14 by mouth ity of (DITROPAN 00:00: daily. [place] XL) 5 mg 24 00 Medical hr tablet Branch oxybutynin 2013-0 Yes 5mg Take 1 Tab U nivers XL 6-14 by mouth ity of (DITROPAN 00:00: daily. [place] XL) 5 mg 24 00 Medical hr tablet Branch HYDROcodone 2013-0 Yes 1{tbl} Take 1-2 Univers -acetaminop 6-14 Tabs by ity o f hen (NORCO 00:00: mouth [place] 5) 5-325 mg 00 every 4 Medic al tablet (four) Branch hours. oxybutynin 2013-0 Yes 5mg Take 1 Tab U nivers XL 6-14 by mouth ity of (DITROPAN 00:00: daily. [place] XL) 5 mg 24 00 Medical hr tablet Branch HYDROcodone 2013-0 Yes 1{tbl} Take 1-2 Univers -acetaminop 6-14 Tabs by ity o f hen (NORCO 00:00: mouth [place] 5) 5-325 mg 00 every 4 Medic al tablet (four) Branch hours. oxybutynin 2013-0 Yes 5mg Take 1 Tab U nivers XL 6-14 by mouth ity of (DITROPAN 00:00: daily. [place] XL) 5 mg 24 00 Medical hr tablet Branch HYDROcodone 2013-0 Yes 1{tbl} Take 1-2 Univers -acetaminop 6-14 Tabs by ity o f hen (NORCO 00:00: mouth [place] 5) 5-325 mg 00 every 4 Medic al tablet (four) Branch hours. oxybutynin 2013-0 Yes 5mg Take 1 Tab U nivers XL 6-14 by mouth ity of (DITROPAN 00:00: daily. [place] XL) 5 mg 24 00 Medical hr tablet Branch HYDROcodone 2013-0 Yes 1{tbl} Take 1-2 Univers -acetaminop 6-14 Tabs by ity o f hen (NORCO 00:00: mouth [place] 5) 5-325 mg 00 every 4 Medic al tablet (four) Branch hours. oxybutynin 2013-0 Yes 5mg Take 1 Tab U nivers XL 6-14 by mouth ity of (DITROPAN 00:00: daily. [place] XL) 5 mg 24 00 Medical hr tablet Branch HYDROcodone 2013-0 Yes 1{tbl} Take 1-2 Univers -acetaminop 6-14 Tabs by ity o f hen (NORCO 00:00: mouth [place] 5) 5-325 mg 00 every 4 Medic al tablet (four) Branch hours. oxybutynin 2013-0 Yes 5mg Take 1 Tab U nivers XL 6-14 by mouth ity of (DITROPAN 00:00: daily. [place] XL) 5 mg 24 00 Medical hr tablet Branch HYDROcodone 2013-0 Yes 1{tbl} Take 1-2 Univers -acetaminop 6-14 Tabs by ity o f hen (NORCO 00:00: mouth [place] 5) 5-325 mg 00 every 4 Medic al tablet (four) Branch hours. oxybutynin 2013-0 Yes 5mg Take 1 Tab U nivers XL 6-14 by mouth ity of (DITROPAN 00:00: daily. [place] XL) 5 mg 24 00 Medical hr tablet Branch HYDROcodone 2013-0 Yes 1{tbl} Take 1-2 Univers -acetaminop 6-14 Tabs by ity o f hen (NORCO 00:00: mouth [place] 5) 5-325 mg 00 every 4 Medic al tablet (four) Branch hours. oxybutynin 2013-0 Yes 5mg Take 1 Tab U nivers XL 6-14 by mouth ity of (DITROPAN 00:00: daily. [place] XL) 5 mg 24 00 Medical hr tablet Branch HYDROcodone 0 Yes 1{tbl} Take 1-2 Univers -acetaminop 6-14 Tabs by ity o f hen (NORCO 00:00: mouth [place] 5) 5-325 mg 00 every 4 Medic al tablet (four) Branch hours. oxybutynin 2013-0 Yes 5mg Take 1 Tab U nivers XL 6-14 by mouth ity of (DITROPAN 00:00: daily. [place] XL) 5 mg 24 00 Medical hr tablet Branch HYDROcodone 2013-0 Yes 1{tbl} Take 1-2 Univers -acetaminop 6-14 Tabs by ity o f hen (NORCO 00:00: mouth [place] 5) 5-325 mg 00 every 4 Medic al tablet (four) Branch hours. oxybutynin 2013-0 Yes 5mg Take 1 Tab U nivers XL 6-14 by mouth ity of (DITROPAN 00:00: daily. [place] XL) 5 mg 24 00 Medical hr tablet Branch HYDROcodone 2013-0 Yes 1{tbl} Take 1-2 Univers -acetaminop 6-14 Tabs by ity o f hen (NORCO 00:00: mouth [place] 5) 5-325 mg 00 every 4 Medic al tablet (four) Branch hours. oxybutynin 2013-0 Yes 5mg Take 1 Tab U nivers XL 6-14 by mouth ity of (DITROPAN 00:00: daily. [place] XL) 5 mg 24 00 Medical hr tablet Branch HYDROcodone 2013-2022- No 1{tbl} Take 1-2 Univers -acetaminop 6-14 07-31 Tabs by ity of hen (NORCO 00:00: 00:00 mouth [place] 5) 5-325 mg 00 :00 every 4 Medic al tablet (four) Branch hours. oxybutynin 2013-2022- No 5mg Take 1 Tab [facility] XL 6-14 07-31 by mouth ity of (DITROPAN 00:00: 00:00 daily. [place] XL) 5 mg 24 00 :00 Medical hr tablet Branch oxybutynin 2013-0 Yes 5mg Take 1 Tab U nivers chloride 5-27 by mouth 3 ity o f (DITROPAN) 00:00: (three) [place] 5 [place] tablet 00 times Medical daily as Branch needed for Bladder spasms. oxybutynin 2013-0 Yes 5mg Take 1 Tab U n[facility] chloride 5-27 by mouth 3 ity o f (DITROPAN) 00:00: (three) [place] 5 [place] tablet 00 times Medical daily as Branch needed for Bladder spasms. oxybutynin 2014-0 Yes 5mg Take 1 Tab U nivers chloride 5-27 by mouth 3 ity o f (DITROPAN) 00:00: (three) [place] 5 [place] tablet 00 times Medical daily as Branch needed for Bladder spasms. oxybutynin 2014-0 Yes 5mg Take 1 Tab U nivers chloride 5-27 by mouth 3 ity o f (DITROPAN) 00:00: (three) [place] 5 [place] tablet 00 times Medical daily as Branch needed for Bladder spasms. oxybutynin 2014-0 Yes 5mg Take 1 Tab U nivers chloride 5-27 by mouth 3 ity o f (DITROPAN) 00:00: (three) [place] 5 [place] tablet 00 times Medical daily as Branch needed for Bladder spasms. oxybutynin 2014-0 Yes 5mg Take 1 Tab U nivers chloride 5-27 by mouth 3 ity o f (DITROPAN) 00:00: (three) [place] 5 [place] tablet 00 times Medical daily as Branch needed for Bladder spasms. oxybutynin 2014-0 Yes 5mg Take 1 Tab U nivers chloride 5-27 by mouth 3 ity o f (DITROPAN) 00:00: (three) [place] 5 [place] tablet 00 times Medical daily as Branch needed for Bladder spasms. oxybutynin 2014-0 Yes 5mg Take 1 Tab U nivers chloride 5-27 by mouth 3 ity o f (DITROPAN) 00:00: (three) [place] 5 [place] tablet 00 times Medical daily as Branch needed for Bladder spasms. oxybutynin 2014-0 Yes 5mg Take 1 Tab U nivers chloride 5-27 by mouth 3 ity o f (DITROPAN) 00:00: (three) [place] 5 [place] tablet 00 times Medical daily as Branch needed for Bladder spasms. oxybutynin 2014-0 Yes 5mg Take 1 Tab U nivers chloride 5-27 by mouth 3 ity o f (DITROPAN) 00:00: (three) [place] 5 [place] tablet 00 times Medical daily as Branch needed for Bladder spasms. oxybutynin 2014-0 Yes 5mg Take 1 Tab U nivers chloride 5-27 by mouth 3 ity o f (DITROPAN) 00:00: (three) [place] 5 [place] tablet 00 times Medical daily as Branch needed for Bladder spasms. oxybutynin 2014-0 Yes 5mg Take 1 Tab U nivers chloride 5-27 by mouth 3 ity o f (DITROPAN) 00:00: (three) [place] 5 [place] tablet 00 times Medical daily as Branch needed for Bladder spasms. oxybutynin 2014-0 Yes 5mg Take 1 Tab U nivers chloride 5-27 by mouth 3 ity o f (DITROPAN) 00:00: (three) [place] 5 [place] tablet 00 times Medical daily as Branch needed for Bladder spasms. oxybutynin 2014-0 Yes 5mg Take 1 Tab U nivers chloride 5-27 by mouth 3 ity o f (DITROPAN) 00:00: (three) [place] 5 [place] tablet 00 times Medical daily as Branch needed for Bladder spasms. oxybutynin 2014-0 Yes 5mg Take 1 Tab U n[facility] chloride 5-27 by mouth 3 ity o f (DITROPAN) 00:00: (three) [place] 5 [place] tablet 00 times Medical daily as Branch needed for Bladder spasms. oxybutynin 2014-0 Yes 5mg Take 1 Tab U nivers chloride 5-27 by mouth 3 ity o f (DITROPAN) 00:00: (three) [place] 5 [place] tablet 00 times Medical daily as Branch needed for Bladder spasms. oxybutynin 2013-0 2022- No 5mg Take 1 Tab [facility] chloride 5-27 07-31 by mouth 3 ity of (DITROPAN) 00:00: 00:00 (three) [place] 5 mg tablet 00 :00 times Medical daily as Branch needed for Bladder spasms. docusate 2014-0 Yes 100mg Take 1 Cap [facility] (COLACE) 5-26 by mouth ity of 100 mg 00:00: every 12 [place] capsule 00 (twelve) Medical hours. Branch doxazosin 2013-0 Yes 4mg Take 1 Tab [facility] (CARDURA) 4 5-26 by mouth ity of mg tablet 00:00: daily. [place] [address] Medical Branch docusate 2014-0 Yes 100mg Take 1 Cap [facility] (COLACE) 5-26 by mouth ity of 100 mg 00:00: every 12 [place] capsule 00 (twelve) Medical hours. Branch doxazosin 2013-0 Yes 4mg Take 1 Tab [facility] (CARDURA) 4 5-26 by mouth ity of mg tablet 00:00: daily. [place] Medical Branch docusate 2014-0 Yes 100mg Take 1 Cap [facility] (COLACE) 5-26 by mouth ity of 100 mg 00:00: every 12 [place] capsule 00 (twelve) Medical hours. Branch doxazosin 2014-0 Yes 4mg Take 1 Tab [facility] (CARDURA) 4 5-26 by mouth ity of mg tablet 00:00: daily. [place] [facility] Branch docusate 2014-0 Yes 100mg Take 1 Cap [facility] (COLACE) 5-26 by mouth ity of 100 mg 00:00: every 12 [place] capsule 00 (twelve) Medical hours. Branch doxazosin 2014-0 Yes 4mg Take 1 Tab [facility] (CARDURA) 4 5-26 by mouth ity of mg tablet 00:00: daily. Medical Branch docusate 2014-0 Yes 100mg Take 1 Cap [facility] (COLACE) 5-26 by mouth ity of 100 mg 00:00: every 12 [place] capsule 00 (twelve) Medical hours. Branch doxazosin 2014-0 Yes 4mg Take 1 Tab [facility] (CARDURA) 4 5-26 by mouth ity of mg tablet 00:00: daily. Medical Branch docusate 2014-0 Yes 100mg Take 1 Cap [facility] (COLACE) 5-26 by mouth ity of 100 mg 00:00: every 12 [place] capsule 00 (twelve) Medical hours. Branch doxazosin 2014-0 Yes 4mg Take 1 Tab [facility] (CARDURA) 4 5-26 by mouth ity of mg tablet 00:00: daily. Medical Branch docusate 2014-0 Yes 100mg Take 1 Cap [facility] (COLACE) 5-26 by mouth ity of 100 mg 00:00: every 12 [place] capsule 00 (twelve) Medical hours. Branch doxazosin 2014-0 Yes 4mg Take 1 Tab [facility] (CARDURA) 4 5-26 by mouth ity of mg tablet 00:00: daily. Medical Branch docusate 2014-0 Yes 100mg Take 1 Cap [facility] (COLACE) 5-26 by mouth ity of 100 mg 00:00: every 12 [place] capsule 00 (twelve) Medical hours. Branch doxazosin 2014-0 Yes 4mg Take 1 Tab [facility] (CARDURA) 4 5-26 by mouth ity of mg tablet 00:00: daily. Medical Branch docusate 2014-0 Yes 100mg Take 1 Cap [facility] (COLACE) 5-26 by mouth ity of 100 mg 00:00: every 12 [place] capsule 00 (twelve) Medical hours. Branch doxazosin 2014-0 Yes 4mg Take 1 Tab [facility] (CARDURA) 4 5-26 by mouth ity of mg tablet 00:00: daily. Medical Branch docusate 2014-0 Yes 100mg Take 1 Cap [facility] (COLACE) 5-26 by mouth ity of 100 mg 00:00: every 12 [place] capsule 00 (twelve) Medical hours. Branch doxazosin 2014-0 Yes 4mg Take 1 Tab [facility] (CARDURA) 4 5-26 by mouth ity of mg tablet 00:00: daily. Medical Branch docusate 2014-0 Yes 100mg Take 1 Cap [facility] (COLACE) 5-26 by mouth ity of 100 mg 00:00: every 12 [place] capsule 00 (twelve) Medical hours. Branch doxazosin 2014-0 Yes 4mg Take 1 Tab [facility] (CARDURA) 4 5-26 by mouth ity of mg tablet 00:00: daily. [place] Medical Branch docusate 2014-0 Yes 100mg Take 1 Cap [facility] (COLACE) 5-26 by mouth ity of 100 mg 00:00: every 12 [place] capsule 00 (twelve) Medical hours. Branch doxazosin 2014-0 Yes 4mg Take 1 Tab [facility] (CARDURA) 4 5-26 by mouth ity of mg tablet 00:00: daily. [place] [facility] Branch docusate 2014-0 Yes 100mg Take 1 Cap [facility] (COLACE) 5-26 by mouth ity of 100 mg 00:00: every 12 [place] capsule 00 (twelve) Medical hours. Branch doxazosin 2014-0 Yes 4mg Take 1 Tab [facility] (CARDURA) 4 5-26 by mouth ity of mg tablet 00:00: daily. [place] [facility] Branch docusate 2014-0 Yes 100mg Take 1 Cap [facility] (COLACE) 5-26 by mouth ity of 100 mg 00:00: every 12 [place] capsule 00 (twelve) Medical hours. Branch doxazosin 2014-0 Yes 4mg Take 1 Tab [facility] (CARDURA) 4 5-26 by mouth ity of mg tablet 00:00: daily. [place] [facility] Branch docusate 2014-0 Yes 100mg Take 1 Cap [facility] (COLACE) 5-26 by mouth ity of 100 mg 00:00: every 12 [place] capsule 00 (twelve) Medical hours. Branch doxazosin 2014-0 Yes 4mg Take 1 Tab [facility] (CARDURA) 4 5-26 by mouth ity of mg tablet 00:00: daily. [place] [address] Medical [place] docusate Yes 100mg Take 1 Cap [facility] (COLACE) 08-09 by mouth ity of 100 mg 00:00: every 12 [place] capsule 00 (twelve) Medical hours. Branch doxazosin Yes 4mg Take 1 Tab [facility] (CARDURA) 4 08-09 by mouth ity of mg tablet 00:00: daily. [place] [address] Medical Branch docusate 2022- No 100mg Take 1 Cap U nivers (COLACE) 08-09 by mouth ity of 100 mg 00:00: 00:00 every 12 [place] capsule 00 :00 (twelve) Medical hours. Branch doxazosin 2022- No 4mg Take 1 Tab U nivers (CARDURA) 4 08-09 by mouth ity of mg tablet 00:00: 00:00 daily. [place] 00 :00 [facility] Vital Signs Vital Name Observation Time Observation Value Comments Source Systolic blood 2022-10-14 18:29:00 132 mm[Hg] [facility] Diastolic blood 2022-10-14 18:29:00 98 mm[Hg] Unive [facility] Heart rate 2022-10-14 18:28:00 116 /min [facility] Body temperature 2022-10-14 18:28:00 36.89 [facility] Respiratory rate 2022-10-14 18:28:00 16 /min [facility] Body height 2022-10-14 18:28:00 167.6 cm [facility] Body weight 2022-10-14 18:28:00 92.534 kg [facility] BMI 2022-10-14 18:28:00 32.93 kg/m2 [facility] Oxygen saturation in 2022-10-14 18:28:00 98 /min [facility] Arterial blood by [facility] Pulse oximetry Branch Systolic blood 2021-11-05 19:01:40 137 mm[Hg] [facility]iver [facility] of [facility] Diastolic blood 2021-11-05 19:01:40 89 mm[Hg] [facility]ive [facility] of [facility] Heart rate 2021-11-05 19:01:40 78 /min [facility] [place] [facility] Respiratory rate 2021-11-05 19:01:40 17 /min [facility] [place] [facility] Oxygen saturation in 2021-11-05 19:01:40 98 /min [facility] of Arterial blood by [facility] Pulse oximetry Branch Body temperature 2021-11-05 16:11:00 37.33 Stella [facility] [place] [facility] Body weight 2021-11-05 16:11:00 95.255 kg [facility] [place] [facility] BMI 2021-11-05 16:11:00 33.89 kg/m2 [facility] [place] [facility] Systolic blood 2021-01-04 01:20:00 156 mm[Hg] Univer sity of [facility] [place] [facility] Diastolic blood 2021-01-04 01:20:00 103 mm[Hg] Unive rsity of pressure [place] [facility] Heart rate 2021-01-04 01:20:00 76 /min [facility] [place] [facility] Respiratory rate 2021-01-04 01:20:00 16 /min [facility] [place] [facility] Oxygen saturation in 2021-01-04 01:20:00 96 /min University of Arterial blood by [facility] Pulse oximetry Branch Body temperature 2021-01-03 22:13:00 36.67 Stella [facility] [place] [facility] Body weight 2021-01-03 22:13:00 90.719 kg [facility] [place] [facility] Systolic blood 2020-03-15 16:00:00 111 mm[Hg] Univer sity of [facility] [place] [facility] Diastolic blood 2020-03-15 16:00:00 70 mm[Hg] Unive rsity of pressure [place] [facility] Heart rate 2020-03-15 16:00:00 73 /min [facility] [place] [facility] Respiratory rate 2020-03-15 16:00:00 16 /min [facility] [place] [facility] Oxygen saturation in 2020-03-15 16:00:00 98 /min University of Arterial blood by [facility] Pulse oximetry Branch Body weight 2020-03-15 14:52:00 87 kg [facility] [place] [facility] BMI 2020-03-15 14:52:00 30.96 kg/m2 [facility] [place] [facility] Body temperature 2020-03-15 14:51:00 36.5 Stella Univ [facility] of [facility] Body height 2020-03-15 14:51:00 167.6 cm [facility] [place] [facility] Systolic blood 2020-03-15 16:00:00 111 mm[Hg] Univer sity of pressure [place] [facility] Diastolic blood 2020-03-15 16:00:00 70 mm[Hg] Unive rsity of pressure [facility] [place] [facility] Heart rate 2020-03-15 16:00:00 73 /min [facility] [place] [facility] Respiratory rate 2020-03-15 16:00:00 16 /min Univ ersity of [facility] [place] [facility] Oxygen saturation in 2020-03-15 16:00:00 98 /min University Arterial blood by [facility] Pulse oximetry Branch Body weight 2020-03-15 14:52:00 87 kg [facility] of [facility] [place] [facility] BMI 2020-03-15 14:52:00 30.96 kg/m2 [facility]i ty of [facility] Body temperature 2020-03-15 14:51:00 36.5 Stella [facility] [place] [facility] Body height 2020-03-15 14:51:00 167.6 cm [facility] [place] [facility] Body height 2019-12-29 19:10:00 167.6 cm [facility] [place] [facility] Body weight 2019-12-29 19:10:00 86.183 kg [facility] [place] [facility] BMI 2019-12-29 19:10:00 30.67 kg/m2 [facility] [place] [facility] Body height 2019-12-29 19:10:00 167.6 cm [facility] [place] [facility] Body weight 2019-12-29 19:10:00 86.183 kg [facility] [place] [facility] BMI 2019-12-29 19:10:00 30.67 kg/m2 [facility] [place] [facility] Systolic blood 2019-12-17 14:13:00 140 mm[Hg] Univer sity of pressure [facility] [place] [facility] Diastolic blood 2019-12-17 14:13:00 99 mm[Hg] Unive rsity of pressure [facility] [place] [facility] Heart rate 2019-12-17 14:13:00 93 /min [facility] [place] [facility] Body height 2019-12-17 14:09:00 167.6 cm [facility] [place] [facility] Body weight 2019-12-17 14:09:00 86.183 kg [facility] BMI 2019-12-17 14:09:00 30.67 kg/m2 [facility] Systolic blood 2019-12-08 03:11:38 150 mm[Hg] [facility] pressure [facility] Diastolic blood 2019-12-08 03:11:38 92 mm[Hg] [facility] Heart rate 2019-12-08 03:11:38 93 /min [facility] Respiratory rate 2019-12-08 03:11:38 18 /min [facility] Oxygen saturation in 2019-12-08 03:11:38 99 /min [facility] Arterial blood by [facility] Pulse oximetry [place] Body temperature 2019-12-08 01:03:00 37.39 [facility] Body weight 2019-12-08 01:03:00 81.647 kg [facility] BMI 2019-12-08 01:03:00 29.05 kg/m2 [facility] Procedures Procedure Date / Time Performing Clinician Source Performed ASSIGNMENT OF BENEFITS 2022-10-14 18:52:35 Doctor Unassigned, [facility] CONSENT/REFUSAL FOR 2022-10-14 18:21:37 Doctor Unassigned, [facility] [facility] DIAGNOSIS AND TREATMENT [facility] ABDOMEN PELVIS W 2021-11-05 17:16:54 Jasson Wright [facility] CONTRAST [facility] Branch LIPASE 2021-11-05 16:24:00 Singer [facility] TROPONIN I 2021-11-05 16:24:00 Singer [facility] COMP. METABOLIC PANEL 2021-11-05 16:24:00 [facility] ([id number]) [facility] CBC WITH DIFF 2021-11-05 16:24:00 Singer [facility] URINALYSIS 2021-11-05 16:24:00 Singer [facility] COVID-19 (ID NOW RAPID 2021-11-05 16:24:00 Jasson Wright [facility] TESTING) [facility] POCT TEST 2021-11-05 16:20:00 Jasson Wright [facility] CONSENT/REFUSAL FOR 2021-11-05 16:07:12 Doctor Bianca [facility] DIAGNOSIS AND TREATMENT [facility] ABDOMEN PELVIS W 2021-01-04 00:08:09 Pallavi Pitts [facility] CONTRAST [facility] CBC WITH DIFF 2021-01-03 23:19:[address] [facility] LIPASE 2021-01-03 22:56:[address] [facility] TEST, SERUM 2021-01-03 22:56:00 Hong Pallavi [facility] COMP. METABOLIC PANEL 2021-01-03 22:56:00 Hong [facility] ([id number]) [facility] LACTIC ACID WHOLE BLOOD 2021-01-03 22:56:00 Hong Pallavi [facility] US ABDOMEN LIMITED 2020-03-15 15:46:14 Greg Liang [facility] LIPASE 2020-03-15 15:06:00 Greg Liang [facility] HEPATIC FUNCTION PANEL 2020-03-15 15:06:00 Greg Liang [facility] ([id number]) (ALB,T.PRO,BILI Medical Branch T,BU/BC,ALT,AST,ALK PHOS) BASIC METABOLIC PANEL 2020-03-15 15:06:00 Greg Liang [facility] (NA, K, CL, CO2, GLUCOSE, Medica l Branch BUN, CREATININE, CA) CBC WITH DIFF 2020-03-15 15:06:00 Greg Liang [facility] URINALYSIS 2020-03-15 15:06:00 Greg Liang [facility] POCT TEST 2020-03-15 15:05:00 Greg Liang [facility] CONSENT/REFUSAL FOR 2020-03-15 14:41:07 Doctor Bianca [facility] DIAGNOSIS AND TREATMENT [facility] INSURANCE CORRESPONDENCE 2020-01-12 05:01:00 Doctor Bianca, [facility] Name Medical Branch REFERRAL- 2019-12-29 05:01:00 Doctor Bianca [facility] REQUEST/RESPONSE [facility] MR HIP LEFT WO CONTRAST 2019-12-28 18:39:54 Vanesa Grigsby [facility] REFERRAL- 2019-12-28 05:01:00 Doctor Unakiet, [facility] REQUEST/RESPONSE [facility] ASSIGNMENT OF BENEFITS 2019-12-17 14:02:00 Doctor Unassigned, [facility] XR LUMBAR SPINE 2 VW 2019-12-08 02:20:31 Clinton Mccoy [facility] XR HIPS 3 VW LEFT 2019-12-08 02:20:31 Clinton [facility]ccoy [facility] PO[facility] TEST 2019-12-08 02:05:00 Clinton Mccoy [facility] NOTICE OF PRIVACY 2019-12-08 00:59:45 Doctor Bianca, [facility] PRACTICES [facility] NOTICE OF PRIVACY 2019-12-08 00:59:15 Doctor Unassjenifer, [facility] CONSENT/REFUSAL FOR 2019-12-08 00:58:56 Doctor Bianca, [facility] DIAGNOSIS AND TREATMENT [facility] Plan of Care Planned Activity Planned Date Details Comments Source Future Scheduled 2023-02-11 COVID-[address] [facility] Test 13:40:14 (#1) [code = COVID-19 VACCINE (#1)] Future Scheduled 2023-02-11 [facility] 13:40:14 screening (procedure) [code = 468143522] Future Scheduled 2023-02-11 [facility]ening [facility] Test 13:40:14 malignant neoplasm of cervix (procedure) [code = 493738765] Future Scheduled 2023-02-11 [facility] 13:40:14 (#1) [code = INFLUENZA VACCINE (#1)] Encounters Start End Encounter Admission Attending Care Care Encounter Source Date/Time Date/Time Type Type Clinicians Facility Department ID 2022-04-02 Outpatient [facility] [id number] [place] 08:48:50 [id number] Health 2021-01-13 Emergency [facility] [id number] Univers 13:46:56 ity [facility] 2021-01-12 Emergency [facility] [id number] Univers 18:54:36 ity [facility] 2020-08-02 Inpatient BRIAN GarciaTO [facility] [id number] [facility] 10:10:38 Mufaddal [facility] 2020-08-01 Inpatient BRIAN GarciaTO [facility] [id number] [facility] 13:23:09 Mufaddal [facility] 2020-02-18 Inpatient BRIAN GarciaTO SURG [id number] [facility] 14:30:00 Mufaddal [facility] 2023-01-14 2023-01-14 Outpatient [id number] PRIV PRIV [id number] [facility] 00:00:00 00:00:00 diyala_S [id number] Medic al 2022-10-14 2022-10-14 [facility] [id number] Univers 13:31:00 14:18:00 BARBARA denykenyetta [facility] 2022-10-14 2022-10-14 [facility] [id number] Univers 13:31:00 14:18:00 Barbara CRAWFORD 350.1.13.10 itkenyetta [facility] 4.2.7.2.686 [facility] [id number] [address] 2021-11-05 2021-11-05 Emergency X [facility] ERT [id number] Univers 11:13:00 14:03:00 JASSON sotelo [facility] 2021-11-05 2021-11-05 Emergency [facility] [id number] Univers 11:13:00 14:03:00 Jasson CRAWFORD 350.1.13.10 i ty [facility] 4.2.[address] [place] [id number] 2021-05-04 2021-05-04 Outpatient [facility] [id number] 606 [place] 00:00:00 00:00:00 CARMELO [address] 2021-04-13 2021-04-13 Outpatient [facility] [id number] 169 [place] 00:00:00 00:00:00 CARMELO [address] 2021-03-20 2021-03-20 Outpatient [facility] [id number] [place] 00:00:00 00:00:00 CARMELO [address] 2021-03-02 2021-03-02 Outpatient DAYDAY, [facility] [id number] 752 [place] 00:00:00 00:00:00 ANDRE 679 Method i 2021-02-26 2021-02-26 Outpatient [facility] [id number] 490 [place] 00:00:00 00:00:00 ANDRE 436 Method i 2021-02-26 2021-02-26 Outpatient [facility] [id number] 736 [place] 00:00:00 00:00:00 ANDRE 334 Method i 2021-02-26 2021-02-26 Outpatient [facility] [id number] 744 [place] 00:00:00 00:00:00 ANDRE 474 Method i 2021-01-03 2021-01-03 Emergency [facility] [id number] Univers 17:15:00 20:49:00 PALLAVI [facility] 2021-01-03 2021-01-03 [facility] [id number] Univers 17:15:00 20:49:00 Pallavi Crawford 350.1.13.10 i ty of [place] 4.2.7.2.686 [facility] [id number] [place] [id number] Branch 2020-06-23 2020-06-23 Outpatient BRIAN OlsenTO HCATO [id number] [facility] 13:23:05 13:23:05 Mufaddal [facility] 2020-06-22 2020-06-22 Outpatient R RADIOLOGY [facility] [id number] Univers 00:00:00 00:00:00 ity [facility] 2020-06-06 2020-06-06 Patient Timmy [facility] 1.2.840.114 [id number] Univers 00:00:00 00:00:00 Outreach Gaurang FREDERICK 350.1.13.10 i ty [facility] [place] [phone] Ok dical 388 Branch 2020-06-06 2020-06-06 Patient Timmy [facility] 1.2.840.114 [id number] 00:00:00 00:00:00 Outreach Gaurang PRIMARY 350.1.13.10 Lester [facility] 4.2.7.2.686 PAVILLION [id number] 388 2020-03-15 2020-03-15 Emergency Greg Liang [facility] 1.2.840.114 [id number] [facility] 08:52:00 10:43:00 [place] 350.1.13.10 i [place] [facility] [id number] [facility] 084 Branch 2020-03-15 2020-03-15 Emergency Greg Liang [facility] 1.2.840.114 [id number] 08:52:00 10:43:00 [place] 350.1.13.10 [place] 4.2.7.2.686 [facility] [id number] 084 2020-02-18 2020-02-18 Outpatient Gombera, HCACL LABO [id number] [facility] 18:12:00 18:12:00 Mufaddal 95 [facility] 2020-01-12 2020-01-12 Orders Doctor ANJANA 1.2.840.114 [id number] [facility] 00:00:00 00:00:00 Only Unassigned, CHENTE 350.1.13.10 ity of [facility] 4.2.7.2.686 Carlos as [id number] [facility] 009 Branch 2020-01-12 2020-01-12 Orders Doctor ANJANA 1.2.840.114 [id number] 00:00:00 00:00:00 Only Unassigned, CHENTE 350.1.13.10 [facility] 4.2.7.2.686 [id number] 009 2020-01-11 2020-01-11 Outpatient [facility] [id number] [address] [place] 00:00:00 00:00:00 BRIT [address] [facility] 2020-01-11 2020-01-11 Outpatient [facility] [id number] 238 [place] 00:00:00 00:00:00 BRIT 938 Method i 2019-12-29 2019-12-29 Office Vanesa Grigsby [facility] 1.2.840. 114 [id number] Univers 14:07:55 14:44:28 Visit Charito Auguste 350.1.13.10 ity of Surgical 4.2.7.2.686 Carlos as Specialti [phone] Ok dical es 198 [facility] 2019-12-29 2019-12-29 [facility] [id number] 14:07:55 14:44:28 Visit Vanesa [facility] 350.1.13.10 Surgical 4.2.7.2.686 Specialti [id number] es [address] [place] [address] 2019-12-29 2019-12-29 Outpatient [facility] [id number] Univers 14:15:00 14:15:00 CHARITO ity of [facility] 2019-12-29 2019-12-29 Letter [facility] 1.2.840.114 [id number] Univers 00:00:00 00:00:00 (Out) Charito Hu 350.1.13.10 it y of Surgical 4.2.7.2.686 [place] as Specialti [phone] Ok dical es 198 [facility] 2019-12-29 2019-12-29 Orders Doctor ANJANA 1.2.840.114 [id number] Univers 00:00:00 00:00:00 Only Unassigned, CHENTE 350.1.13.10 ity of [facility] 4.2.7.2.686 Carlos as [id number] [facility] 009 [place] 2019-12-28 2019-12-28 [facility] 1.2.840.114 [id number] Univers 12:50:10 23:59:00 Encounter Vanesa Crawford 350.1.13.10 ity [place] [facility] [id number] [facility] 804 [place] 2019-12-28 2019-12-28 Out[facility] [id number] Univers 00:00:00 00:00:00 VANESA ity [facility] 2019-12-28 2019-12-28 Orders Doctor ANJANA 1.2.840.114 [id number] Univers 00:00:00 00:00:00 Only Unassigned, CHENTE 350.1.13.10 ity of [facility] 4.2.7.2.686 [place] as [id number] [address] 2019-12-27 2019-12-27 Telephone [facility] 1.2.840.114 [id number] Univers 00:00:00 00:00:00 Vanesa [facility] 350.1.13.10 it y of Surgical 4.2.7.2.686 [place] as Specialti [phone] Me dical es 198 [facility] 2019-12-17 2019-12-17 Hospital [facility] 1.2.840.114 [id number] Univers 09:22:06 23:59:00 Encounter Vanesa Hu 350.1.13.10 ity of Surgical 4.2.7.2.686 [place] as Specialti [id number] Me dical es 809 [facility] 2019-12-17 2019-12-17 Office [facility] 1.2.205.551 [id number] Univers 09:05:13 09:19:13 Visit Vanesa Hu 350.1.13.10 it y of Surgical 4.2.7.2.686 [place] as Specialti [id number] Me dical es 198 [facility] 2019-12-17 2019-12-17 Outpatient [facility] [id number] Univers 09:00:00 09:00:00 VANESA ity of [facility] 2019-12-17 2019-12-17 Orders Doctor YEUNG 1.2.840.114 [id number] Univers 00:00:00 00:00:00 Only Unassigned, CHENTE 350.1.13.10 ity of [facility] 4.2.7.2.686 Carlos as [id number] [address] 2019-12-07 2019-12-07 Emergency [facility] 1.2.840.114 [id number] Univers 20:07:00 22:14:00 Clinton Kumar [place] 350.1.13.10 ity of [place] 4.2.7.2.686 [facility] [id number] [facility] 084 Branch 2019-11-17 2019-11-17 Outpatient Raju_P [facility] [id number] [place] 09:57:00 09:57:00 0902 [facility] Results Test Description Test Time Test Comments Results Result Comments Source TROPONIN I 2021-11-05 18:26:08 Test Item Value Reference Range Interpretation Comme nts TROPONIN I (test code = 0.002 ng/mL See_Comment [Au tomated message] The 6018690200) system which ge nerated this result tra nsmitted reference range : <=0.034. The reference r bennie was not used to int erpret this result as normal/abnormal . WADE (test code = WADE) Reference (Normal) Range (defined by the 99th percentile reference limit): <= 0.034 ng/mL Note: Cardiac troponin begins to rise 3-4 hours after the onset of ischemia. Repeat in 4-6 hours if the sample was drawn within 3-4 hours of the onset of the symptom and found normal. Diagnosis of myocardial injury is made with acute changes in cTn concentrations with at least one serial sample above the 99th percentile upper reference limit (URL), taken together with the patient's clinical presentation. Biotin has been reported to cause a negative bias, interpret results relative to patient's use of biotin. Lab Interpretation Normal (test code = 15996-0) [facility]. METABOLIC PANEL (56615)2021-11-05 16:50:56 Test Item Value Reference Range Interpretation Comments NA (test code = 139 mmol/L 135-145 8573099899) K (test code = 3.3 mmol/L 3.5-5 L 0089495363) CL (test code = 107 mmol/L 98-108 3584544655) CO2 TOTAL (test code = 23 mmol/L 23-31 8272871490) AGAP (test code = 2-16 2637539939) BUN (test code = 13 mg/dL 7-23 2607260054) GLUCOSE (test code = 91 mg/dL 70-110 2962278323) CREATININE (test code = 0.78 mg/dL 0.5-1.04 7982858893) TOTAL BILI (test code = 0.7 mg/dL 0.1-1.7 8482732746) CALCIUM (test code = 8.9 mg/dL 8.6-10.6 8978135071) T PROTEIN (test code = 6.6 g/dL 6.3-8.2 5609322724) ALBUMIN (test code = 4.5 g/dL 3.5-5 0578256433) ALK PHOS (test code = 57 U/L 34-122 9303002473) ALTv (test code = 22 U/L 5-35 1742-6) AST(SGOT) (test code = 25 U/L 13-40 2139572581) eGFR (test code = mL/min/1.73m2 1106554966) WADE (test code = WADE) Association of Glomerular Filtration Rate (GFR) and Staging of Kidney Disease* + --+ --+ ------+| GFR (mL/min/1.73 m2) ?| With Kidney Damage ?| ?Without Kidney Damage+ --------+ --------+ +| ?>90 ?| ?Stage one ?| ? Normal ?+ ---+ ---+ -------+| ?60-89 ?| ?Stage two ?| ? Decreased GFR ? + --+ --+ ------+| ?30-59 ?| ?Stage three ?| ? Stage three ? + --+ --+ ------+| ?15-29 ?| ?Stage four ? | ? Stage four ?+ ---+ ---+ -------+| ?<15 (or dialysis) ? ?| ?Stage five ? | ? Stage five ?+ ---+ ---+ -------+ *Each stage assumes the associated GFR level has been in effect for at least three months. ?Stages 1 to 5, with or without kidney disease, indicate chronic kidney disease. Notes: Determination of stages one and two (with eGFR >59mL/min/1.73 m2) requires estimation of kidney damage for at least three months as defined by structural or functional abnormalities of the kidney, manifested by either:Pathological abnormalities or Markers of kidney damage (including abnormalities in the composition of the blood or urine or abnormalities in imaging tests). Lab Interpretation Abnormal (test code = 24504-2) [facility] 16[facility]15 Test Item Value Reference Range Interpretation Comments LIPASE (test code = 1495741248) 95 U/L 0-220 Lab Interpretation (test code = Normal 60841-2) [facility] WITH [id number] 16:37:54 Test Item Value Reference Range Interpretation Comments WBC (test code = See_Comment [Automated 6690-2) message] The sy stem which generated this result transmitted reference range : 4.30 - 11.10 10*3/?L. The reference range was not used to interpret this result as normal/abnormal . RBC (test code = See_Comment [Automated 789-8) message] The sy stem which generated this result transmitted reference range : 3.93 - 5.25 10*6/?L. The reference range was not used to interpret this result as normal/abnormal . HGB (test code = 11.8 g/dL 11.6-15 718-7) HCT (test code = 34.4 % 35.7-45.2 L 4544-3) MCV (test code = 82.7 fL 80.6-95.5 787-2) MCH (test code = 28.4 pg 25.9-32.8 785-6) MCHC (test code = 34.3 g/dL 31.6-35.1 786-4) RDW-SD (test code = 38.8 fL 39-49.9 L 65588-2) RDW-CV (test code = 12.9 % 12-15.5 788-0) PLT (test code = See_Comment [Automated 777-3) message] The sy stem which generated this result transmitted reference range : 166 - 358 10*3/ ?L. The reference r bennie was not used to interpret this result as normal/abnormal . MPV (test code = 10.8 fL 9.5-12.9 07820-0) NRBC/100 WBC (test See_Comment [Automat ed code = 6817018973) message] The system which generated this result transmitted reference range : 0.0 - 10.0 /100 WBCs. The refer ence range was not u sed to interpret th is result as normal/abnormal . NRBC x10^3 (test code See_Comment [Auto mated = 3182220975) message] The s ystem which generated this result transmitted reference range : 10*3/?L. The reference range was not used to interpret this result as normal/abnormal . GRAN MAT (NEUT) % 75.4 % (test code = 770-8) IMM GRAN % (test code 0.20 % = 5376448022) LYMPH % (test code = 18.9 % 736-9) MONO % (test code = 4.9 % 5905-5) EOS % (test code = 0.2 % 713-8) BASO % (test code = 0.4 % 706-2) GRAN MAT x10^3(ANC) 6.27 10*3/uL 1.88-7.09 (test code = 2875583244) IMM GRAN x10^3 (test 0-0.06 code = 2655209908) LYMPH x10^3 (test code 1.57 10*3/uL 1.32-3.29 = 731-0) MONO x10^3 (test code 0.41 10*3/uL 0.33-0.92 = 742-7) EOS x10^3 (test code = 0.03-0.39 L 711-2) BASO x10^3 (test code 0.03 10*3/uL 0.01-0.07 = 704-7) Lab Interpretation Abnormal (test code = 63952-1) [facility] [id number] 16:20:00 Test Item Value Reference Range Interpretation Comments POCT PREG (test code = 1605) negative On board controls acceptable with prsent C Line (test code = 3574) POCT PREG LOT # (test code = 3575) [id number] POCT PREG TEST DATE (test 02/13/23 code = 3576) Lab Interpretation (test code = Normal 63427-0) [facility]. METABOLIC PANEL (41037)2021-01-03 23:40:32 Test Item Value Reference Range Interpretation Comments NA (test code = 140 mmol/L 135-145 6312985707) K (test code = 3.5 mmol/L 3.5-5.0 4205419890) CL (test code = 105 mmol/L 98-108 9513112723) CO2 TOTAL (test code = 28 mmol/L 23-31 3213796131) AGAP (test code = 2-16 7498991482) BUN (test code = 14 mg/dL 7-23 1400894511) GLUCOSE (test code = 119 mg/dL 70-110 H 2168881888) CREATININE (test code = 0.68 mg/dL 0.50-1.04 5333734915) TOTAL BILI (test code = 0.3 mg/dL 0.1-1.5 1363685418) CALCIUM (test code = 9.3 mg/dL 8.6-10.6 5703236779) T PROTEIN (test code = 6.8 g/dL 6.3-8.2 0656983348) ALBUMIN (test code = 4.1 g/dL 3.5-5.0 9027661426) ALK PHOS (test code = 75 U/L 34-122 0299678136) ALTv (test code = 66 U/L 5-35 H 1742-6) AST(SGOT) (test code = 37 U/L 13-40 3482042515) eGFR (test code = mL/min/1.73m2 9742310035) WADE (test code = WADE) Association of Glomerular Filtration Rate (GFR) and Staging of Kidney Disease* + --+ --+ ------+| GFR (mL/min/1.73 m2) ?| With Kidney Damage ?| ?Without Kidney Damage+ --------+ --------+ +| ?>90 ?| ?Stage one ?| ? Normal ?+ ---+ ---+ -------+| ?60-89 ?| ?Stage two ?| ? Decreased GFR ? + --+ --+ ------+| ?30-59 ?| ?Stage three ?| ? Stage three ? + --+ --+ ------+| ?15-29 ?| ?Stage four ? | ? Stage four ?+ ---+ ---+ -------+| ?<15 (or dialysis) ? ?| ?Stage five ? | ? Stage five ?+ ---+ ---+ -------+ *Each stage assumes the associated GFR level has been in effect for at least three months. ?Stages 1 to 5, with or without kidney disease, indicate chronic kidney disease. Notes: Determination of stages one and two (with eGFR >59mL/min/1.73 m2) requires estimation of kidney damage for at least three months as defined by structural or functional abnormalities of the kidney, manifested by either:Pathological abnormalities or Markers of kidney damage (including abnormalities in the composition of the blood or urine or abnormalities in imaging tests). Lab Interpretation Abnormal (test code = 08891-9) [facility] 23:40:11 Test Item Value Reference Range Interpretation Comments LIPASE (test code = 8113445902) 68 U/L 0-220 Lab Interpretation (test code = Normal 09605-6) [facility], [id number] 23:37:16 Test Item Value Reference Range Interpretation Comments PREG SERUM (test code Negative = 0437088684) WADE (test code = WADE) Less than 10 IU/L. ?If low titer or ectopic is suspected, resubmit specimen in 48-72 hours. [facility] WITH [id number] 23:30:29 Test Item Value Reference Range Interpretation Comments WBC (test code = See_Comment [Automated 6690-2) message] The sy stem which generated this result transmitted reference range : 4.30 - 11.10 10*3/?L. The reference range was not used to interpret this result as normal/abnormal . RBC (test code = See_Comment [Automated 269-8) message] The sy stem which generated this result transmitted reference range : 3.93 - 5.25 10*6/?L. The reference range was not used to interpret this result as normal/abnormal . HGB (test code = 11.6 g/dL 11.6-15.0 718-7) HCT (test code = 34.5 % 35.7-45.2 L 4544-3) MCV (test code = 84.1 fL 80.6-95.5 787-2) MCH (test code = 28.3 pg 25.9-32.8 785-6) MCHC (test code = 33.6 g/dL 31.6-35.1 786-4) RDW-SD (test code = 38.8 fL 39.0-49.9 L 88831-4) RDW-CV (test code = 12.6 % 12.0-15.5 788-0) PLT (test code = See_Comment [Automated 777-3) message] The sy stem which generated this result transmitted reference range : 166 - 358 10*3/ ?L. The reference r bennie was not used to interpret this result as normal/abnormal . MPV (test code = 11.6 fL 9.5-12.9 77093-8) NRBC/100 WBC (test See_Comment [Automat ed code = 4164402904) message] The system which generated this result transmitted reference range : 0.0 - 10.0 /100 WBCs. The refer ence range was not u sed to interpret th is result as normal/abnormal . NRBC x10^3 (test code <0.01 See_Comment [Auto mated = 9946406894) message] The s ystem which generated this result transmitted reference range : 10*3/?L. The reference range was not used to interpret this result as normal/abnormal . GRAN MAT (NEUT) % 58.9 % (test code = 770-8) IMM GRAN % (test code 0.40 % = 8320743632) LYMPH % (test code = 31.8 % 736-9) MONO % (test code = 6.3 % 5905-5) EOS % (test code = 2.2 % 713-8) BASO % (test code = 0.4 % 706-2) GRAN MAT x10^3(ANC) 5.69 10*3/uL 1.88-7.09 (test code = 8878393810) IMM GRAN x10^3 (test 0.04 10*3/uL 0.00-0.06 code = 6281472810) LYMPH x10^3 (test code 3.07 10*3/uL 1.32-3.29 = 731-0) MONO x10^3 (test code 0.61 10*3/uL 0.33-0.92 = 742-7) EOS x10^3 (test code = 0.21 10*3/uL 0.03-0.39 711-2) BASO x10^3 (test code 0.04 10*3/uL 0.01-0.07 = 704-7) Lab Interpretation Abnormal (test code = 34926-6) [facility] [id number] 09:27:00 Test Item Value Reference Range Interpretation Comments UR HCG QUAL (test NEGATIVE NEGATIVE Clear back ground in the code = HCGQLU) Read Result Window.INTERNAL QC [employer]#[id number] 07EXP:01-17 - XR FLUORO [id number] 11:41:00 [facility] : 1985 Sex: F Patient Name: PHOEBE MENDIETA Unit No: [id number] EXAMS: CPT CODE: [id number] XR FLUORO NDL 20709Kthtnzvzupqinawp guided injection of the left hip with steroid and Marcaine COMPARISON: No prior exams available. FINDINGS: After informed consent was obtained a needle was placed in the left hip withfluoroscopic guidance. Its position was confirmed by injecting Isovue 300 and obtaining an AP radiograph. Subsequently 2 mL of Kenalog 40 mg per cc and 4 mL of Marcaine was injected. No immediate complications were encountered. 3 seconds of fluoroscopy time was utilized. IMPRESSION: Technically successful steroid/ Marcaine injection of the left hip at 1141 Reported and signed by: Mitul Collier M.D. CC: Jerri Olsen MD Technologist: RT Marcus.(R) Transcribed D/ (1141) t.MANNY.[facility] NAME: PHOEBE MENDIETA [address] PHYS: GOMMU.01 - Jerri Olsen : 1985 AGE: 34 SEX: F [place], [place] [address] LOC: DeysiRAD PHONE #: [phone] EXAM DATE: STATUS: DEP CLI FAX #: [phone] RAD #: D/C DT PAGE 1 Signed Report Patient Name: PHOEBE MENDIETA Unit No: [id number] EXAMS: CPT CODE: [id number] XR FLUORO NDL 22919 (Continued) Orig Print D/T: S: 07/06/2020 (1144) [facility] NAME: PHOEBE MENDIETA [address] [facility] PHYS: GOMMU.01 - LilibethconradoJerri M : 1985 AGE: 34 SEX: F [place], [place] [address] LOC: DeysiRAD PHONE #: [phone] EXAM DATE: 07/05/2020 STATUS: DEP CLI FAX #: [phone] #: D/C DT PAGE 2 Signed Report - XR ARTHROGRAM HIP W/O AN LT+2020-07-03 10:03:00 [facility] 1985 Sex: F Patient Name: PHOEBE MENDIETA Unit No: [id number] EXAMS: CPT CODE: [id number] XR ARTHROGRAM HIP W/O AN LT+ 08700 LEFT HIP ARTHROGRAM AND LIDOCAINE INJECTION DIAGNOSIS: No definite abnormality. COMMENT: COMPARISON: No prior exams available. After informed consent was obtained a single-contrast arthrogram was performed with equal parts Isovue-300 and dilute gadolinium . 0.2 minutes of fluoroscopy time was utilized. The normal recesses were opacified. An AP radiograph was obtained. Subsequently 2 mLof 1% lidocaine was injected into the joint. No immediate complications were encountered. at 1003 Reported and signed by: Pedrito Malhotra MD CC: Jerri Olsen MD Technologist: Gean Laughlin RT.(R) Transcribed D/ (1003) t.AUGUSTUSR.L [facility] NAME: PHOEBE MENDIETA [address] [facility] PHYS: GOMMU. Marlin Olsenoscar Brian : 1985 AGE: 34 SEX: F [place] [address] LOC:YBkRAD PHONE #: [phone] EXAM DATE: 06/26/2020 STATUS: DEP CLI FAX #: [phone] RAD #: D/C DT PAGE 1 Signed Report Patient Name: PHOEBE MENDIETA Unit No: [id number] EXAMS: CPT CODE: [id number] XR ARTHROGRAM HIP W/O AN LT+ 69336 (Continued) Orig Print D/T: S: 07/03/2020 (1007) [facility] NAME: PHOEBE MENDIETA [address] [facility] PHYS: GOMMU.[place] Jerri Olsen : 1985 AGE: 34 SEX: F [place] [address] LOC: Y.RAD PHONE #: [phone] EXAM DATE: 06/26/2020 STATUS: DEP CLI FAX #: [phone] RAD #: D/C DT PAGE 2 Signed Report- MRI LW JNT W/CONTRAST TL2406-47-69 12:45:00 [facility] : 1985 Sex: F Patient Name: PHOEBE MENDIETA Unit No: [id number] EXAMS: CPT CODE: [id number] [place] J[place] [address] MRI ARTHROGRAM LEFT HIP DIAGNOSIS: 1. There is a moderately displaced tear of the superiorlabrum best seen on coronal fat sat T1 sequence images 12-26. There is also irregularity and attenuation of the anterior labrum with a minimally displaced anterior labral tear. These findings may in part be related to previous partial labral debridement. 2. The alpha angle measures 45 degrees. The lateral center edge angle measures 17 degrees. INDICATION: Left hip pain COMPARISON: None PULSE SEQUENCES multiplanar, multisequence MRI is obtained of the left hip post arthrography. There is satisfactory contrast distention of the left hip joint. Left acetabular labral abnormalities are as described above. The ligamentum teres and transverse ligaments are intact. Articular surfaces are smooth. No aggressive osseous lesion or acute fracture. The iliopsoas, rectus femoris, gluteal, and hamstring tendons are normal. No muscle belly atrophy or edema. No iliopsoas or trochanteric bursal fluid to suggestbursitis. The visualized pelvic structures are normal. There are no regional soft tissue abnormalities or aggressive osseous lesions. at 1245 Reported and signed by: Tori Avendaño MD CC: Jerri Olsen MD Technologist: Christi Aquino(R) Transcribed D/ (3263) KinjalGVG [facility] NAME: PHOEBE MENDIETA [address] [facility] PHYS: GOMMU.01 - Jerri Olsen : 1985 AGE: 34 SEX: F [place], [place] [address] LOC: ERIKA PHONE #: [phone] EXAM DATE: 06/26/2020 STATUS: REG CLI FAX #: [phone] RAD #: D/C DT PAGE 1 Signed Report Patient Name: PHOEBE MENDIETA Unit No: [id number] EXAMS: CPT CODE: [id number] MRI LW JNT W/[place] [address] (Continued) Orig Print D/T: S: 06/26/2020 (1248) [facility] NAME: PHOEBE MENDIETA [address] [facility] PHYS: FREDDYMMU.01 - Jerri Olsen M : 1985 AGE: 34 SEX: F [place], [place] [address] LOC: Y.RAD PHONE #: [phone] EXAM DATE: 06/26/2020 STATUS: REG CLI FAX #: [phone] RAD #: D/C DT PAGE 2 Signed ReportUS Abdomen Limited 2020-03-15 16:05:18 Cholelithiasis. No sonographic evidence for acute cholecystitis.EXAM: US ABDOMEN LIMITED HISTORY: 34 year-old woman with RUQ pain, eval GB, known hx of Gallstones . TECHNIQUE: Limited abdominal ultrasound was performed focused on the rightupper quadrant. Main portal vein was evaluated with color Doppler imaging.Economic Historian images were obtained for the record. COMPARISON: CT abdomen pelvis with contrast, 06/28/2015 FINDINGS: LIVER: Length: 17.0 cm.Parenchyma: Normal hepatic echogenicity and echotexture. No focal lesion isdetected.Portal vein: Hepatopetal flow present in the main portal vein. MPV d iameter1.1 cm GALLBLADDER:Multiple small stones layer dependently within the gallbladder.Normal gallbladder wall thickness, 2 mm.Negative Glynn's sign. BILE DUCTS:No intra- or extrahepatic biliary dilatation.Common Duct diameter: 3 mm. PANCREAS: Limited visualization due to shadowing from bowel gas. Imagedhead and body of pancreas are unremarkable. AORTA:Abdominal aorta is normal in caliber where visualized. Diameter of theproximal abdominal aorta is 1.8 cm. IVC:IVC is normal in appearance where visualized. OTHER: None. [facility], Radiant Results Inft User - 03/15/2020 10:06 AM CSTEXAM: US ABDOMEN LIMITEDHISTORY: 34 year-old woman with RUQ pain, eval GB, known hx of Gallstones .TECHNIQUE: Limited abdominal ultrasound was performed focused on the rightupper quadrant. Main portal vein was evaluated with color Doppler imaging.Economic Historian images were obtained for the record.COMPARISON: CT abdomen pelvis with contrast, 06/28/2015FINDINGS: LIVER: Length: 17.0 cm.Parenchyma: Normal hepatic echogenicity and echotexture. No focal lesion isdetected.Portal vein: Hepatopetal flow present in the main portal vein. MPV diameter1.1 cmGALLBLADDER:Multiple small stones layer dependently within the gallbladder.Normal gallbladder wall thickness, 2 mm.Negative Glynn's sign.BILE DUCTS:No intra- or extrahepatic biliary dilatation.Common Duct diameter: 3 mm.PANCREAS: Limited visualization due to shadowing from bowel gas. Imagedhead and body of pancreas are unremarkable.AORTA:Abdominal aorta is normal in caliber where visualized. Diameter of theproximal abdominal aorta is 1.8 cm.IVC:IVC is normal in appearance where visualized. OTHER: None.IMPRESSIONCholelithiasis. No sonographic evidence for acute cholecystitis.[facility] Htdjnnhdmm7491-42-52 15:48:00 Test Item Value Reference Range Interpretation Comments APPEARANCE (test code = Clear Clear 3357445283) COLOR (test code = Yellow Yellow 6652651062) PH (test code = 4.8-8.0 8293692734) SP GRAVITY (test code = >=1.030 1.003-1.030 4482792921) GLU U QUAL (test code = Negative Negative 3795331458) BLOOD (test code = Negative Negative 7381962077) KETONES (test code = Negative Negative 4503263560) PROTEIN (test code = Negative Negative 2887-8) UROBILIN (test code = 0.2 mg/dL See_Comment [Auto mated message] 5799508457) The system [employer] generated this result transmit sujit reference range : 0-1.0 mg/dL. Th e reference range was not used to interpret this result as normal/abnormal . BILIRUBIN (test code = Negative Negative 1997595698) NITRITE (test code = Negative Negative 9020386883) LEUK MIKE (test code = Negative Negative 2547844844) RBC/HPF (test code = See_Comment [Autom ated message] 7712550071) The system [employer] generated this result transmit sujit reference range : 0 - 3 HPF. The refe rence range was not u sed to interpret th is result as normal/abnormal . WBC/HPF (test code = See_Comment [Autom ated message] 2006396825) The system [employer] generated this result transmit sujit reference range : 0 - 5 HPF. The refe rence range was not u sed to interpret th is result as normal/abnormal . BACTERIA (test code = Negative Negative 6887800795) MUCOUS (test code = Slight Negative LPF A 4781352754) SQ EPITH (test code = HPF 9364990169) Lab Interpretation (test Abnormal code = 45579-5) [facility] (ALB, T.PRO, BILI T, BU/BC, ALT, AST, ALK PHOS)2020-03-15 15:30:00 Test Item Value Reference Range Interpretation Comments TOTAL BILI (test code = 5923179919) 0.7 mg/dL 0.1-1.1 BILI UNCON (test code = 0352469228) 0.6 mg/dL 0.1-1.1 BILI CONJ (test code = 7634354745) 0.0 mg/dL 0-0.3 T PROTEIN (test code = 9577523208) 6.8 g/dL 6.3-8.2 ALBUMIN (test code = 5051873640) 4.0 g/dL 3.5-5 ALK PHOS (test code = 7453117954) 62 U/L 34-122 ALTv (test code = 1742-6) 11 U/L 5-35 AST(SGOT) (test code = 2261408470) 19 U/L 13-40 Lab Interpretation (test code = Normal 86189-8) [facility]ne[facility]ase Yiazj4449-72-20 15:30:00 Test Item Value Reference Range Interpretation Comments LIPASE (test code = 6637955778) 119 U/L 0-220 Lab Interpretation (test code = Normal 65839-5) [facility] (NA, K, CL, CO2, GLUCOSE, BUN, CREATININE, CA)2020-03-15 15:30:00 Test Item Value Reference Range Interpretation Comments NA (test code = 138 mmol/L 135-145 3267346871) K (test code = 3.3 mmol/L 3.5-5 L 1255348548) CL (test code = 102 mmol/L 98-108 7016825894) CO2 TOTAL (test code = 28 mmol/L 23-31 7751762577) AGAP (test code = 2-16 2648854712) BUN (test code = 18 mg/dL 7-23 7163125556) GLUCOSE (test code = 99 mg/dL 70-110 9027881990) CREATININE (test code = 0.78 mg/dL 0.5-1.04 7343696995) CALCIUM (test code = 9.0 mg/dL 8.6-10.6 7946287775) eGFR Calculation mL/min/1.73m2 (Non-) (test code = 8072661477) eGFR Calculation mL/min/1.73m2 () (test code = 4875107585) WADE (test code = WADE) Association of Glomerular Filtration Rate (GFR) and Staging of Kidney Disease* + --+ --+ ------+| GFR (mL/min/1.73 m2) ?| With Kidney Damage ?| ?Without Kidney Damage+ --------+ --------+ +| ?>90 ?| ?Stage one ?| ? Normal ?+ ---+ ---+ -------+| ?60-89 ?| ?Stage two ?| ? Decreased GFR ? + --+ --+ ------+| ?30-59 ?| ?Stage three ?| ? Stage three ? + --+ --+ ------+| ?15-29 ?| ?Stage four ? | ? Stage four ?+ ---+ ---+ -------+| ?<15 (or dialysis) ? ?| ?Stage five ? | ? Stage five ?+ ---+ ---+ -------+ *Each stage assumes the associated GFR level has been in effect for at least three months. ?Stages 1 to 5, with or without kidney disease, indicate chronic kidney disease. Notes: Determination of stages one and two (with eGFR >59mL/min/1.73 m2) requires estimation of kidney damage for at least three months as defined by structural or functional abnormalities of the kidney, manifested by either:Pathological abnormalities or Markers of kidney damage (including abnormalities in the composition of the blood or urine or abnormalities in imaging tests). Lab Interpretation Abnormal (test code = 44222-6) [facility] with Cqcyyuhtmnwp4360-95-89 15:19:00 Test Item Value Reference Range Interpretation Comments WBC (test code = See_Comment [Automated 6690-2) message] The sy stem which generated this result transmitted reference range : 4.30 - 11.10 10*3/?L. The reference range was not used to interpret this result as normal/abnormal . RBC (test code = See_Comment [Automated 789-8) message] The sy stem which generated this result transmitted reference range : 3.93 - 5.25 10*6/?L. The reference range was not used to interpret this result as normal/abnormal . HGB (test code = 11.4 g/dL 11.6-15 L 718-7) HCT (test code = 33.8 % 35.7-45.2 L 4544-3) MCV (test code = 85.6 fL 80.6-95.5 787-2) MCH (test code = 28.9 pg 25.9-32.8 785-6) MCHC (test code = 33.7 g/dL 31.6-35.1 786-4) RDW-SD (test code = 37.4 fL 39-49.9 L 69437-3) RDW-CV (test code = 11.9 % 12-15.5 L 788-0) PLT (test code = See_Comment [Automated 777-3) message] The sy stem which generated this result transmitted reference range : 166 - 358 10*3/ ?L. The reference r bennie was not used to interpret this result as normal/abnormal . MPV (test code = 10.1 fL 9.5-12.9 25622-1) NRBC/100 WBC (test See_Comment [Automat ed code = 8219041698) message] The system which generated this result transmitted reference range : 0.0 - 10.0 /100 WBCs. The refer ence range was not u sed to interpret th is result as normal/abnormal . NRBC x10^3 (test code <0.01 See_Comment [Auto mated = 2957734349) message] The s ystem which generated this result transmitted reference range : 10*3/?L. The reference range was not used to interpret this result as normal/abnormal . GRAN MAT (NEUT) % 52.7 % (test code = 770-8) IMM GRAN % (test code 0.20 % = 3610948095) LYMPH % (test code = 32.4 % 736-9) MONO % (test code = 8.0 % 5905-5) EOS % (test code = 5.9 % 713-8) BASO % (test code = 0.8 % 706-2) GRAN MAT x10^3(ANC) 3.23 10*3/uL 1.88-7.09 (test code = 2293197062) IMM GRAN x10^3 (test <0.03 0-0.06 code = 4944731036) LYMPH x10^3 (test code 1.98 10*3/uL 1.32-3.29 = 731-0) MONO x10^3 (test code 0.49 10*3/uL 0.33-0.92 = 742-7) EOS x10^3 (test code = 0.36 10*3/uL 0.03-0.39 711-2) BASO x10^3 (test code 0.05 10*3/uL 0.01-0.07 = 704-7) Lab Interpretation Abnormal (test code = 84570-1) [facility] Ciat7843-62-21 15:05:00 Test Item Value Reference Range Interpretation Comments POCT PREG (test code = 1605) negative On board controls acceptable with present C Line (test code = 3574) POCT PREG LOT # (test code = 3575) [id number] POCT PREG TEST DATE (test 2021-07-14 code = 3576) Lab Interpretation (test code = Normal 11625-5) [facility] Coronavirus 2019 Vhqtfcn3907-26-00 18:16:00 Test Item Value Reference Range Interpretation Comments Novel Coronavirus Negative Negative Positive r esults are 2019 Inhouse (test indicativ e of the presence code = COVNONPUI) ofSARS-CoV -2 RNA, clinical correlation wit h patient historyand othe r diagnostic info rmation is necessary to determinepatien t infection status. Positiv e results do not rule out bacterial infection or co -infection with other viru ses. Negative result s do not preclude SARS-C oV-2 infection andsh ould not be used as the paloma e basis for patient managementdecis ions. Negative result s must be combined with otherclinical observations, p atient history, and epidemiological information . Detection of SARS-CoV-2 RNA may be affe cted bysample collec tion methods, storag e conditions, and /or stageof infection. Sandra l RNA mutations, vacc inations, antiviraltherap eutics, antibiotics, chemotherapeuti c orimmunosuppres deidre drugs have not been e valuated for effectson d etection. Results are for the identification of SARS-CoV-2 RNA usingthe Wilkinson M2000 Sy stem under the [facility] Emergen cy UseAuthorizatio n. The testing is perf ormed by personneltraine d in the procedures for the ResolutionTube M2000 molecular diagnostic SARS-CoV-2 assa y in vitro. Novel Coronavirus 2018 Artwtxa1974-23-27 18:15:00 Test Item Value Reference Range Interpretation Comments Novel Coronavirus Negative Negative Positive r esults are 2019 Inhouse (test indicativ e of the presence code = COVNONPUI) ofSARS-CoV -2 RNA, clinical correlation wit h patient historyand othe r diagnostic info rmation is necessary to determinepatien t infection status. Positiv e results do not rule out bacterial infection or co -infection with other viru ses. Negative result s do not preclude SARS-C oV-2 infection andsh ould not be used as the paloma e basis for patient managementdecis ions. Negative result s must be combined with otherclinical observations, p atient history, and epidemiological information . Detection of SARS-CoV-2 RNA may be affe cted bysample collec tion methods, storag e conditions, and /or stageof infection. Sandra l RNA mutations, vacc inations, antiviraltherap eutics, antibiotics, chemotherapeuti c orimmunosuppres deidre drugs have not been e valuated for effectson d etection. Results are for the identification of SARS-CoV-2 RNA usingthe Wilkinson M2000 Sy stem under the FDA Emergen cy UseAuthorizatio n. The testing is perf ormed by personneltraine d in the procedures for the Wilkinson M2000 molecular diagnostic SARS-CoV-2 assa y in vitro. MR HIP LEFT WO HDJKHXRI7560-94-28 18:53:25HISTORY: ?Pain in the left hip for 2 months after fall. TECHNIQUE: MR imaging of the left hip was done in multiple projectionsusing 1.5T MR unit and standard protocol. FINDINGS: Small hip joint effusion noted. Bones showed normal marrow signalintensities in all sequences. Prominent. Labral cleft is seen in the posterior labrum at 4:00. Adjacentto this cleft, there is a vertical flap tear in the labrum between 3 and4:00 location. No signs of greater trochanteric bursitis. Minimal fluid noted in thelesser trochanter bursa near the iliopsoas tendon insertion. Various muscles and tendons around the hipjoint are all intact. Noinguinal hernia.Incidental note of small cysts in the left ovary along with small amount offree fluid in the cul-de-sac consistent with physiologic changes. CONCLUSIONS: Vertical nondisplaced flap tear suspected in the posteriorlabrum between 3 and 4:00 with small left hip joint effusion. [facility], Radiant Results Inft User - 12/28/2019 1:54 PM CDTHISTORY: Pain in the left hip for2 months after fall.TECHNIQUE: MR imaging of the left hip was done in multiple projectionsusing 1.5TMR unit and standard protocol.FINDINGS: Small hip joint effusion noted. Bones showed normal marrow si gnalintensities in all sequences.Prominent. Labral cleft is seen in the posterior labrum at 4:00. Adjacentto this cleft, there is a vertical flap tear in the labrum between 3 and4:00 location.No signs of greater trochanteric bursitis. Minimal fluid noted in thelesser trochanter bursa near the iliopsoas tendon insertion.Various muscles and tendons around the hip joint are all intact. Noinguinal hernia.Incidental note of small cysts in the left ovary along with small amount offree fluid in the cul-de-sac consistent with physiologic changes.CONCLUSIONS: Vertical nondisplaced flap tear suspected in the posteriorlabrum between 3 and 4:00 with small left hip joint effusion.[facility] [id number] 02:05:00 Test Item Value Reference Range Interpretation Comments POCT PREG (test code = 1605) negative On board controls acceptable with present C Line (test code = 3574) POCT PREG LOT # (test code = 3575) [id number] POCT PREG TEST DATE (test 2021-01-14 code = 3576) Lab Interpretation (test code = Normal 79780-8) [facility] Notes Date/Time Note Provider Source 2022-10-14 13:50:06 1297-77-17L20:50:06Formatting of Brina ballesteros RN [facility] this note might be different from the original.Pt discharged with diagnosis of neck muscle spasm. Printed and verbal instructions reviewed with and given to patient. Prescriptions given x 1. Pt verbalized understanding of teaching, medications, and recommended follow-up. Denies questions or concerns at this time. Pt ambulatory at discharge. Appears in no apparent distress. No ataxia noted. 05882-3Glafwctus department BdirXC3856-37-14Q30:50:42Emergen department NoteTXT1.2.840.806842.1.13.104.2.7 .2.604444|[id number] for patient ltiz55818-1WfntJM954960194Fyqmw N Dewoody RN[address] Jk[id number] 17FEDFESQEFGZYYJBWHIVJMX8743-81-35 T13:50:421.2.840.705852.1.72.3.15| 1.2.840.878682.1.13.104.2.7.2.7278 [id number] 2022-10-14 13:26:35 2385-59-55W58:26:35Formatting of [facility] this note might be different from the original.Pt arrived via private car with c/o right shoulder / upper arm pain. States that "helped a really large lady on a course on a hernadez and felt a pop, then today I started coughing really hard and felt another pop and the pain is worse now." 85648-2Aruuxtuqa department Triage tbvtFZ1168-38-94H56:29:41[facility] Triage noteTXT1.2.840.254745.1.13.104.2.7 .2.078251|[id number] for patient wdnt90690-4Upfurqfrw department Note[address]GalvestonTXTX[address] 23SFETFMUHABVTJNNAHDDNGS8856-43-03 T13:29:411.2.840.346088.1.72.3.15| 1.2.840.359335.1.13.104.2.7.2.7278 [id number] 2022-10-14 13:21:00 0774-82-98W86:21:00Formatting of [facility] this note is different from the original.[facility] Emergency Department NotePatient Name: Phoebe Zamora of : 1985 37 year old femaleTreatment Room: [place] [address]Medical Record Number: [id number] Care Physician: Kayla EvansPatient Escorted by: Self [9]Mode of Arrival: Personal means [1]EMS Treatment Prior to ED Arrival: Travel and Exposure Screening:SymptomsDoes patient have any of these symptoms?: (not recorded)Exposure ScreeningHas patient had contact with someone with a communicable disease in the last month?: (not recorded)Diseases exposed to:: (not recorded)Is Patient ?: (not recorded)Exposure Date: (not recorded)Chief Complaint:Chief Complaint Patient presents with Arm Pain Right History of Present Illness:The patient presents from home for evaluation for right-sided arm pain that started on Friday when she helped move an obese lady on the obstacle course in the water. She states she felt she heard a pop in her right arm. She had some mild pain since then that seemed to get worse today when she coughed just before arrival. She is right-handed. She states the pain in her arm is worse when she tries to move her shoulder or her elbow. No medications taken for pain today. She denies any neck pain or injury.Here for evaluation.Past Medical History/Immunizations:Past Medical History: Diagnosis Date Kidney stones Tetanus received in last 5 years: UnknownChildhood immunizations: Up-to-date Allergies:Allergies Allergen Reactions Fentanyl Rash Past Social History:Tobacco Use Former Smokeless Tobacco: Never used smokeless tobacco. Alcohol Use No. Drug Use No. Past Surgical History:Past Surgical History: Procedure Laterality Date ENDOSCOPIC PERCUTANEOUS NEPHROLITHOTOMY Right 08/24/2013 Surgeon: Francis Werner MD; [facility]) Right 08/09/2013 Surgeon: Demarcus Ku MD; Location[facility]) Right 08/27/2013 Surgeon: Francis Werner MD; Location: [facility] TUBAL LIGATION bilateral URETEROSCOPIC STONE MANIPULATION Right 08/27/2013 Surgeon: Francis Werner MD; Location: [facility] Review of Systems: Review of Systems Constitutional: Negative for chills and fever. Respiratory: Negative for cough and shortness of breath. Cardiovascular: Negative for chest pain. Gastrointestinal: Negative for abdominal pain, nausea and vomiting. Genitourinary: Negative for dysuria. Musculoskeletal: Positive for arthralgias. Negative for neck pain and neck stiffness. Skin: Negative for wound. Neurological: Negative for dizziness. Psychiatric/Behavioral: Negative for agitation. Endocrine: Negative for goiter. Physical Exam: ED Triage Vitals Weight 10/14/22 1328 92.5 kg (204 lb) Actual or estimated 10/14/22 1328 Estimated by patient/family report Height 10/14/22 1328 1.676 m (5' 6") BP 10/14/22 1329 (!) 132/98 Pulse 10/14/22 1328 116 Resp 10/14/22 1328 16 Temp 10/14/22 1328 36.9 ?C (98.4 ?F) Temp source 10/14/22 1328 Oral SpO2 10/14/22 1328 98 % Measured on 10/14/22 1328 Room air Physical ExamVitals and nursing note reviewed. Constitutional: Appearance: Normal appearance. She is normal weight. HENT: Head: Normocephalic and atraumatic. Mouth/Throat: Mouth: Mucous membranes are dry. Neck: Comments: No vertebral body tenderness to cervical spine.She has tightness and tenderness to the right trapezius muscle.Cardiovascular: Rate and Rhythm: Normal rate and regular rhythm. Pulses: Normal pulses. Pulmonary: Effort: Pulmonary effort is normal. No respiratory distress. Breath sounds: No wheezing. Abdominal: General: There is no distension. Palpations: Abdomen is soft. There is no mass. Tenderness: There is no abdominal tenderness. There is no guarding. Hernia: No hernia is present. Musculoskeletal: General: Normal range of motion. Cervical back: Neck supple. Tenderness present. Comments: No deformity noted to the right shoulder, elbow or wrist.Handgrip right was left.+2 radial pulse right side.With movement of her right shoulder and elbow she has pain on the right side of her neck. Skin: General: Skin is warm and dry. Neurological: General: No focal deficit present. Mental Status: She is alert and oriented to person, place, and time. Radiology:No orders to display Lab Results:Lab Results - No data to displayEKG:If EKG completed, see Procedure Note. Orders and Treatments:No orders of the defined types were placed in this encounter.Orders Placed This Encounter Medications cyclobenzaprine 10 mg tablet First Provider Eval:ED Events Date/Time Event User Comments 10/14/22 1322 Medical Screening Begins BARBARA JACKSON DO -- 10/14/22 1322 First Provider Evaluation BARBARA JACKSON DO -- No notes of EC Admission Criteria type on file.ED COURSEDiagnosis/Impression as of 10/14/22 1339 Neck muscle spasm Procedures: ProceduresMDM:Medical Decision MakingThe patient presents from home for evaluate for pain to her right arm. She states she was helping an obese woman completing obstacle course in the water on Friday and heard a pop. She had mild pain since then that became worse today while driving home and she coughed. She then came to the ER for evaluation. No medications for pain today. She is right-handed.Vital signs are stable in the ER.She has no vertebral body tenderness or cervical spine.She has tightness and tenderness to the right trapezius muscle.No deformity noted to the right shoulder, elbow or wrist.+2 radial pulse right side.With movement of her right shoulder or elbow she has pain in the right side of her neck.Suspect a cervical radiculopathy related to a spasm in her trapezius muscle.Recommend anti-inflammatories, rest, massage, warm compresses, IcyHot/Bengay as well as muscle relaxers.She remained stable here in the ER and is okay for discharge home with PCP follow-up.Problems Addressed:Neck muscle spasm: acute illness or injuryRiskOTC drugs.Prescription drug management. Flowsheet Documentation: Scoring Tools: No data recorded Disposition/Condition:ED Disposition ED Disposition Disch - Home Condition Stable Comment -- Discharge Medications:Patient's Medications START taking these medications CYCLOBENZAPRINE 10 MG TABLET Take 1 tablet by mouth 3 (three) times daily as needed for Muscle Spasms. CONTINUE taking these medications which have NOT CHANGED LEVOTHYROXINE 25 MCG TABLET OLMESARTAN 40 MG TABLET START taking Modified Medications as Prescribed No medications on file STOP taking these medications ACETAMINOPHEN-CODEINE (TYLENOL #4) 300-60 MG TABLET Take 1 Tab by mouth every 4 (four) hours as needed for Pain. ALLOPURINOL 300 MG TABLET AZITHROMYCIN (ZITHROMAX Z-MARIE) 250 MG TABLET Take 1 tablet by mouth SEE-INSTRUCTIONS. Take 500 mg day 1, then 250 mg days 2 to 5. BENZONATATE 100 MG CAPSULE Take 1 capsule by mouth 3 (three) times daily as needed for Cough. CHLORTHALIDONE 25 MG TABLET CIPROFLOXACIN HCL (CIPRO) 500 MG TABLET Take 1 Tab by mouth 2 (two) times daily. CLINDAMYCIN (CLEOCIN T) 1 % SOLUTION Apply to area(s) 2 (two) times daily. CYCLOBENZAPRINE 10 MG TABLET Take 1 tablet by mouth 3 (three) times daily as needed for Muscle Spasms. DICLOFENAC 75 MG EC TABLET Take 1 tablet by mouth 2 (two) times daily with meals. DICYCLOMINE (BENTYL) 10 MG CAPSULE Take 1 capsule by mouth every 8 (eight) hours as needed for Abdominal pain. DOCUSATE (COLACE) 100 MG CAPSULE Take 1 Cap by mouth every 12 (twelve) hours. DOXAZOSIN (CARDURA) 4 MG TABLET Take 1 Tab by mouth daily. HYDROCODONE-ACETAMINOPHEN (NORCO 5) 5-325 MG TABLET Take 1-2 Tabs by mouth every 4 (four) hours. HYDROXYZINE 10 MG TABLET Take 1 tablet by mouth every 6 (six) hours as needed for Anxiety. HYOSCYAMINE SULFATE (LEVSIN/SL) 0.[address] 1 Tab under the tongue every 4 (four) hours as needed for Pain (scale 4-6). IBUPROFEN 600 MG TABLET Take 1 tablet by mouth every 6 (six) hours as needed for Pain (scale 4-6). METRONIDAZOLE (FLAGYL) 500 MG TABLET Take 1 Tab by mouth 2 (two) times daily. ONDANSETRON 4 MG DISINTEGRATING TABLET Take 1 tablet by mouth every 8 (eight) hours as needed for Nausea and Vomiting (N/V). OXYBUTYNIN CHLORIDE (DITROPAN) 5 MG TABLET Take 1 Tab by mouth 3 (three) times daily as needed for Bladder spasms. OXYBUTYNIN XL (DITROPAN XL) 5 MG 24 HR TABLET Take 1 Tab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 prescription NSAIDS, therapeutic exercise program, and avoiding symptomatic motion) AND-Patient's pain temporarily improved following diagnostic injection until it returned AND-On exam, the patient demonstrates a positive impingement sign (pain elicited with 90 degrees of flexion and internal rotation and adduction of the femur)AND-Patient?s X-rays demonstrate 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 greater than 55 degrees and pistol sponsorship coordinator deformity AND-Patient?s advanced imaging demonstrates an anterosuperior acetabular labral tear and anterosuperior chondral damage (that is not full-thickness) along with BRANDAN morphology, thus a high probability of a causal association between the BRANDAN morphology and damage AND-There is NO evidence of osteoarthritis (OA) on the patient?s x-rays based on Ton[place] Grade and maintained joint spaces greater than 2mm AND-Intraoperative findings demonstrates NO evidence of severe ([place] grade III or IV) chondral damage, as described in the findings above. PATIENT NAME: PHOEBE MENDIETA Since the patient has met all of the above conditions, the surgical treatment of femoroacetabular impingement in this patient is medically necessary. The medical necessity for surgical treatment is based on the clinical indications for surgery, my trained medical opinion, and the medical policy guidelines of [employer], Policy Number [id number] Dictated By: Jerri Olsen MD WT: OP:[id number]: 02/25/2020 15:47:34DT: 02/25/2020 21:02:01Conf#: [id number]/DID#: [id number] Authenticated and Edited by Jerri Olsen MD On 02/27/20 12:47:51 PM at 1249 PATIENT NAME: PHOEBE MENDIETA [id number] for patient [id number]
--- NOTE | 2023-02-11 14:21 | RAD REPORT ---
EXAM DESCRIPTION: CT - Pelvis Wo Cont - 02/11/2023 2:03 pm CLINICAL HISTORY: fall, sacral pain, left pelvis pain Fall, trauma, pain COMPARISON: No comparisons TECHNIQUE: All CT scans are performed using dose optimization technique as appropriate and may inclu de automated exposure control or mA/KV adjustment according to patient size. FINDINGS: Both hips show no evidence of fracture, dislocation or AVN. Sacroiliac joints are symmetri c and intact. There is a nondisplaced fracture seen involving the superior most coccygeal level, C1, along the left. No pelvic mass or hematoma. No intra pelvic adenopathy or fluid parrot IMPRESSION: Nondisplaced fracture involves the superior most coccygeal level, C1, along the left.
[2023-02-11] MEDS ORDERED: KETOROLAC 30 MG/ML INJ ONE (14:55)
--- NOTE | 2023-02-11 15:06 | EDPHYS ---
Physician Documentation [facility] Name: Phoebe Romano Age: 37 yrs Sex: Female : 1985 Arrival Date: 02/11/2023 Time: 13:37 Bed Treatment Private MD: ED Physician Carlos Shrestha HPI: 02/11 15:05 This 37 yrs old Female presents to ER via Wheelchair with complaints of Fall Injury, ms3 Back Pain. 15:05 37-year-old female with past medical history of gout, gallstones, hypertension, kidney ms3 stones presents to the emergency department for tailbone pain after getting up and tripping on her pants falling on her tailbone. Patient states pain is a 10/10. Patient states standing makes the pain worse. Patient denies alleviating factors. 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 - Social history:: Smoking status: Patient denies any tobacco usage or history of. ROS: 15:05 Constitutional: Negative for fever, and chills. Neck: Negative for injury, pain, and ms3 swelling, Cardiovascular: Negative for chest pain, and palpitations. Respiratory: Negative for shortness of breath, cough, wheezing, and pleuritic chest pain, Abdomen/GI: Negative for abdominal pain, nausea, vomiting, diarrhea, and constipation, MS/Extremity: Negative for injury and deformity, Skin: Negative for injury, rash, and discoloration, 15:05 Back: Positive for Tailbone pain, Exam: 15:05 Constitutional: This is a well developed, well nourished patient who is awake, alert, ms3 and in no acute distress. Head/Face: Normocephalic, atraumatic. 15:05 Chest/axilla: Normal chest wall appearance and motion. Nontender with no deformity. Cardiovascular: Regular rate and rhythm with a normal S1 and S2. No gallops, murmurs, or rubs. Normal PMI, no JVD. No pulse deficits. Respiratory: Lungs have equal breath sounds bilaterally, clear to auscultation and percussion. No rales, rhonchi or wheezes noted. No increased work of breathing, no retractions or nasal flaring. Abdomen/GI: Soft, non-tender, with normal bowel sounds. No distension or tympany. No guarding or rebound. No evidence of tenderness throughout. Skin: Warm, dry with normal turgor. Normal color with no rashes, no lesions, and no evidence of cellulitis. 15:05 Back: pain, that is severe, of the coccyx, normal spinal alignment noted, muscle spasm, is not present, Vital Signs: 14:26 BP 121 / 80; Pulse 71; Resp 16 S; Temp 98.3(TE); Pulse Ox 100% on R/A; Weight 87.09 kg aa5 (R); Height 5 ft. 6 in. (R); 15:32 BP 118 / 79; Pulse 75; Resp 18; Pulse Ox 100% on R/A; me1 14:26 Body Mass Index 30.99 (87.09 kg, 167.64 cm) aa5 MDM: 13:59 Patient medically screened. ms3 15:05 Differential diagnosis: contusion, fracture, sprain, strain. Data reviewed: vital ms3 signs, nurses notes, lab test result(s), radiologic studies, CT scan, and as a result, I will discharge patient. I considered the following discharge prescriptions or medication management in the emergency department Medications were administered in the Emergency Department. See MAR. Independent interpretation of the following test(s) in the Emergency Department. Counseling: I had a detailed discussion with the patient and/or guardian regarding the historical points, exam findings, and any diagnostic results supporting the discharge/admit diagnosis, radiology results, the need for outpatient follow up, to return to the emergency department if symptoms worsen or persist or if there are any questions or concerns that arise at home. Special discussion: I discussed with the patient/guardian in detail that at this point there is no indication for admission to the hospital. It is understood, however, that if the symptoms persist or worsen the patient needs to return immediately for re-evaluation. ED course: Discussed CT findings with patient and her . Patient to follow-up with primary care physician as instructed. All questions were answered. Return precautions discussed include worsening symptoms, or any other concerns. On reevaluation patient symptoms improved, patient is alert and oriented x4, no apparent distress, nontoxic-appearing. 02/11 13:55 Order name: CT Pelvis wo Cont; Complete Time: 15:05 ms3 Administered Medications: 14:51 Drug: Ketorolac IM 15 mg IM once Route: IM; Site: left deltoid; me1 15:34 Follow up: Response: No adverse reaction; Pain is decreased me1 Disposition Summary: 02/11/23 15:05 Discharge Ordered Notes: Location: Home ms3 Condition: Stable ms3 Diagnosis - Fracture of coccyx ms3 - Fall on same level, unspecified ms3 Discharge Instructions: - Discharge Summary Sheet ms3 - Tailbone Injury, [id number]-[id number] ms3 Forms: - Medication Reconciliation Form ms3 - Thank You Letter ms3 - Antibiotic Education ms3 - Prescription Opioid Use ms3 - Patient Portal Instructions ms3 - Leadership Thank You Letter ms3 Prescriptions: - acetaminophen-codeine 300-30 mg Oral tablet - take 1 tablet ORAL route every 4 hours; 18 tablet; Refills: 0, Product ms3 Selection Permitted Signatures: Dispatcher [employer] Anna Marie Novoa, RN RN aa5 Carlos Shrestha DO DO ms3 Wendy Wallace, ZANE RN me1
--- NOTE | 2023-02-11 15:06 | ER ---
Nurse's Notes [facility] Name: Phoebe Romano Age: 37 yrs Sex: Female : 1985 Arrival Date: 02/11/2023 Time: 13:37 Bed Treatment Private MD: Diagnosis: Fracture of coccyx;Fall on same level, unspecified Presentation: 02/11 14:25 Chief complaint: Patient states: back pain, fall onto buttocks this morning. aa5 Coronavirus screen: At this time, the client does not indicate any symptoms associated with coronavirus-19. Ebola Screen: Patient denies travel to an Ebola-affected area in the 21 days before illness onset. Initial Sepsis Screen: Does the patient meet any 2 criteria? No. Patient's initial sepsis screen is negative. Does the patient have a suspected source of infection? No. Patient's initial sepsis screen is negative. Risk Assessment: Do you want to hurt yourself or someone else? Patient reports no desire to harm self or others. Onset of symptoms was February 11, 2023. 14:25 Method Of Arrival: Wheelchair aa5 14:25 Acuity: JES 3 aa5 RN RELIEF CHARGE: 14:27 LMP 02/04/2023, unknown aa5 Historical: - Allergies: 14:25 Tape; aa5 - PMHx: 14:25 Gout; GALLSTONES; Hypertension; Kidney stones; aa5 - PSHx: 14:25 hernia repair; Tonsillectomy; tubal ligation; aa5 - Immunization history:: Adult Immunizations unknown. - Social history:: Smoking status: Patient denies any tobacco usage or history of. Screenin:00 [facility] ED Fall Risk Assessment (Adult) History of falling in the last 3 months, me1 including since admission Yes- single mechanical fall (1 pt) Confusion or Disorientation No (0 pts) Intoxicated or Sedated No (0 pts) Impaired Gait Yes (1 pt) Mobility Assist Device Used Yes (1 pt) Altered Elimination No (0 pt) Score/Fall Risk Level 0 - 2 = Low Risk Oriented to surroundings, Provided non-skid footwear, Hourly rounding (assess needs \T\ fall precautionary measures) done. Abuse screen: Denies threats or abuse. Nutritional screening: No deficits noted. Tuberculosis screening: No symptoms or risk factors identified. Assessment: 15:00 General: Appears uncomfortable, well groomed, well developed, well nourished, Behavior me1 is calm, cooperative, appropriate for age, Reports on crutches and fell onto buttocks this morning. c/o pain that is sharp to tailbone. Pain: Complains of pain in coccyx Pain does not radiate. Pain currently is 8 out of 10 on a pain scale. Quality of pain is described as sharp, Pain began suddenly, Is continuous. Neuro: Level of Consciousness is awake, alert, obeys commands, Oriented to person, place, time, situation, Appropriate for age. Cardiovascular: Capillary refill < 3 seconds Patient's skin is warm and dry. Respiratory: Airway is patent Respiratory effort is even, unlabored, Respiratory pattern is regular, symmetrical. 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 . Vital Signs: 14:26 BP 121 / 80; Pulse 71; Resp 16 S; Temp 98.3(TE); Pulse Ox 100% on R/A; Weight 87.09 kg aa5 (R); Height 5 ft. 6 in. (R); 15:32 BP 118 / 79; Pulse 75; Resp 18; Pulse Ox 100% on R/A; me1 14:26 Body Mass Index 30.99 (87.09 kg, 167.64 cm) aa5 ED Course: 13:40 Patient arrived in ED. mg5 13:42 Carlos Shrestha DO is Attending Physician. ms3 14:00 Patient's name was called from ER lobby. No response. iw 14:03 CT Pelvis wo Cont In Process Unspecified. EDMS 14:26 Triage completed. aa5 14:39 Wendy Wallace, ZANE is Primary Nurse. me1 15:00 Patient has correct armband on for positive identification. Bed in low position. Call me1 light in reach. Side rails up X 1. Provided Education on: POC. Verbalized understanding. . 15:00 No provider procedures requiring assistance completed. Patient did not have IV access me1 during this emergency room visit. 15:03 Arm band placed on Patient placed in waiting room. me1 Administered Medications: 14:51 Drug: Ketorolac IM 15 mg IM once Route: IM; Site: left deltoid; me1 15:34 Follow up: Response: No adverse reaction; Pain is decreased me1 Medication: 15:00 VIS not applicable for this client. me1 Outcome: 15:05 Discharge ordered by . ms3 15:32 Discharged to home via wheelchair, with significant other, me1 15:32 Condition: stable 15:32 Discharge instructions given to patient, family, Instructed on discharge instructions, follow up and referral plans. medication usage, Demonstrated understanding of instructions, follow-up care, medications, Prescriptions given X 1, 15:32 Patient left the ED. me1 Signatures: Dispatcher [employer] EDElizabeth Lawrence RN RN iw Anna Marie Travis RN RN aa5 Carlos Shrestha DO DO ms3 Wendy Wallace RN RN me1 Iveth Escobar mg5 Corrections: (The following items were deleted from the chart) 15:00 14:25 Chief complaint: Patient states: back pain, fall onto buttocks this morning. aa5 me1
[2023-02-11 15:37] VITALS: BP 121/80; TEMP 98.3; O2SAT 100
== END 2023-02-11 15:32 | disposition home or self-care (01) ==
LOC: ER 13:37
DX: S32.2XXA Fracture of coccyx, initial encounter for closed fracture (principal); W18.30XA Fall on same level, unspecified, initial encounter; Z91.048 Other nonmedicinal substance allergy status
CPT/HCPCS: 72192; 96372; 99284

== ENCOUNTER → 2023-05-31 | Emergency (ER) | payer BC ==
[~2023-05-31] MED LIST: HYDROCODONE/APAP 5/325 MG TAB ONE; KETOROLAC 30 MG/ML INJ ONE; ONDANSETRON 4 MG (ODT) TAB ONE
--- NOTE | 2023-05-31 16:28 | RAD REPORT ---
EXAM DESCRIPTION: CT - Head Brain Wo Cont - 05/31/2023 4:23 pm CLINICAL HISTORY: PAIN Headache, drowsiness COMPARISON: Head angio dated 11/23/2017; Head Brain Wo Cont dated 11/23/2017 TECHNIQUE: All CT scans are performed using dose optimization technique as appropriate and may inclu de automated exposure control or mA/KV adjustment according to patient size. FINDINGS: No intracranial hemorrhage, hydrocephalus or extra-axial fluid collection.No areas of brai n edema or evidence of midline shift. The paranasal sinuses and mastoids are clear. The calvarium is intact. IMPRESSION: No acute intracranial abnormality.
--- NOTE | 2023-05-31 16:30 | RAD REPORT ---
EXAM DESCRIPTION: CT - CTFB CLINICAL HISTORY: PAIN Headache, trauma, facial pain COMPARISON: No comparisons TECHNIQUE: Axial 2 mm thick images of the face were obtained with sagittal and coronal reconstructio n images. All CT scans are performed using dose optimization technique as appropriate and may include automated exposure control or mA/KV adjustment according to patient size. FINDINGS: No acute facial bone fracture is seen.The mandible is intact. The globes and orbital contents are grossly unremarkable.The paranasal sinuses and mastoids are clear . IMPRESSION: Negative for facial bone fracture.
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
[2023-05-31 18:32] VITALS: BP 101/67; TEMP 97.8; O2SAT 100
== END ==
LOC: ER 15:50
DX: S06.0X0A Concussion without loss of consciousness, initial encounter (principal); R42 Dizziness and giddiness; Z91.048 Other nonmedicinal substance allergy status
CPT/HCPCS: 70450; 70486; 76377; 96372; 99285; Q0162

== ENCOUNTER 2023-08-08 09:21 | Emergency (ER) | payer BC ==
[2023-08-08 10:07] LABS: Absolute Basophils 0.1 K/uL (0-0.5); Absolute Eosinophils 0.4 K/uL (0-0.5); Absolute Lymphocytes (CBC) 1.6 K/uL (0.7-4.9); Absolute Monocytes 0.5 K/uL (0.1-1.3); Absolute Neutrophil 3.6 K/uL (1.8-8.0); Eosinophils % 6.1 % (0-4.4); Hemoglobin 11.8 g/dL (12.0-15.0); Lymphocytes % 25.4 % (15.3-44.8); MCHC 32.8 g/dL (32.0-36.0); MCV 88.6 fL (80-100); MPV 8.3 fL (7.6-11.3); Monocytes % 8.3 % (3.3-12.3); Neutrophils % 59.2 % (41.7-73.7); Platelets 390 thou/uL (152-406); RBC Red Blood Cell Count 4.06 M/uL (3.86-4.86); Red Cell Distribution Width 13.3 % (12.1-15.2)
[2023-08-08 10:17] LABS: Anion Gap 6.6 mEq/L (5.0-15.0); Potassium 3.6 mEq/L (3.5-5.1)
[2023-08-08 10:53] LABS: Specific Gravity 1.024 (1.005-1.030)
[2023-08-08 10:56] LABS: Specific Gravity 1.024 (1.005-1.030); Sqamous Epithelial <5 /HPF (None Seen); Urine Bacteria None Seen /HPF (<20); Urine Bilirubin NEGATIVE (Negative); Urine Blood Negative (Negative); Urine Clarity Turbid (Clear); Urine Color Light-Yellow (Yellow); Urine Culture Reflex Order NOT NEEDED; Urine Glucose NEGATIVE (Negative); Urine Ketones NEGATIVE (Negative); Urine Microscopic Reflex YN ORDER UMIC; Urine Mucus Slight /HPF (None Seen); Urine Nitrite NEGATIVE (Negative); Urine Protein NEGATIVE (Negative); Urine RBC <5 /HPF (None Seen); Urine Urobilinogen Normal (Normal); Urine pH 7.5 (5.0-7.0)
--- NOTE | 2023-08-08 10:57 | EDPHYS ---
Physician Documentation [facility] Name: Phoebe Romano Age: 37 yrs Sex: Female : 1985 Arrival Date: 08/08/2023 Time: 09:21 Bed 13 Private MD: RIMA Physician Adolfo Espinosa HPI: 08/07 09:54 This 37 yrs old Female presents to ER via Ambulatory with complaints of kayden Abdominal Cramping, Preg-Few Weeks. 09:54 The patient presents to the emergency department with vaginal bleeding, that is light. kayden The estimated gestational age is 5 weeks. course: care: none. Previous pregnancies: in previous pregnancies patient has had vaginal delivery. Associated signs and symptoms: The patient has no apparent associated signs or symptoms. The patient has not experienced similar symptoms in the past. 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 - Infectious Disease History:: Denies. - Social history:: Smoking status: Patient denies any tobacco usage or history of. ROS: 09:59 Constitutional: Negative for fever, chills, and weight loss, Eyes: Negative for injury, kayden pain, redness, and discharge, ENT: Negative for injury, pain, and discharge, Neck: Negative for injury, pain, and swelling, Cardiovascular: Negative for chest pain, palpitations, and edema, Respiratory: Negative for shortness of breath, cough, wheezing, and pleuritic chest pain, Abdomen/GI: Negative for abdominal pain, nausea, vomiting, diarrhea, and constipation, Back: Negative for injury and pain, MS/Extremity: Negative for injury and deformity, Skin: Negative for injury, rash, and discoloration, Neuro: Negative for headache, weakness, numbness, tingling, and seizure, Psych: Negative for depression, anxiety, suicide ideation, homicidal ideation, and hallucinations, Allergy/Immunology: Negative for hives, rash, and allergies, Endocrine: Negative for neck swelling, polydipsia, polyuria, polyphagia, and marked weight changes, Hematologic/Lymphatic: Negative for swollen nodes, abnormal bleeding, and unusual bruising, 09:59 : Positive for pelvic pain, vaginal bleeding, Exam: 09:59 Constitutional: This is a well developed, well nourished patient who is awake, alert, kayden and in no acute distress. Head/Face: Normocephalic, atraumatic. Eyes: Pupils equal round and reactive to light, extra-ocular motions intact. Lids and lashes normal. Conjunctiva and sclera are non-icteric and not injected. Cornea within normal limits. Periorbital areas with no swelling, redness, or edema. ENT: Nares patent. No nasal discharge, no septal abnormalities noted. Tympanic membranes are normal and external auditory canals are clear. Oropharynx with no redness, swelling, or masses, exudates, or evidence of obstruction, uvula midline. Mucous membranes moist. Neck: Trachea midline, no thyromegaly or masses palpated, and no cervical lymphadenopathy. Supple, full range of motion without nuchal rigidity, or vertebral point tenderness. No Meningismus. Chest/axilla: Normal chest wall appearance and motion. Nontender with no deformity. No lesions are appreciated. Cardiovascular: Regular rate and rhythm with a normal S1 and S2. No gallops, murmurs, or rubs. Normal PMI, no JVD. No pulse deficits. Respiratory: Lungs have equal breath sounds bilaterally, clear to auscultation and percussion. No rales, rhonchi or wheezes noted. No increased work of breathing, no retractions or nasal flaring. Abdomen/GI: Soft, non-tender, with normal bowel sounds. No distension or tympany. No guarding or rebound. No evidence of tenderness throughout. Back: No spinal tenderness. No costovertebral tenderness. Full range of motion. Skin: Warm, dry with normal turgor. Normal color with no rashes, no lesions, and no evidence of cellulitis. MS/ Extremity: Pulses equal, no cyanosis. Neurovascular intact. Full, normal range of motion. Neuro: Awake and alert, GCS 15, oriented to person, place, time, and situation. Cranial nerves II-XII grossly intact. Motor strength 5/5 in all extremities. Sensory grossly intact. Cerebellar exam normal. Normal gait. Psych: Awake, alert, with orientation to person, place and time. Behavior, mood, and affect are within normal limits. Vital Signs: 09:30 BP 134 / 94; Pulse 85; Resp 16; Temp 97.6(TE); Pulse Ox 100% on R/A; Weight 97.52 kg; hb Height 5 ft. 6 in. ; Pain 4/10; 11:09 BP 114 / 88; Pulse 71; Resp 18 S; Pulse Ox 99% on R/A; kc6 09:30 Body Mass Index 34.70 (97.52 kg, 167.64 cm) hb 09:30 Pain Scale: Adult hb MDM: 09:26 Patient medically screened. kayden 10:03 Differential diagnosis: kidney stone, threatened Ab, urinary tract infection. Data kayden reviewed: vital signs, nurses notes, lab test result(s), EKG, radiologic studies, ultrasound. Consideration of Admission/Observation Escalation of care including admission/observation considered. I considered the following discharge prescriptions or medication management in the emergency department Medications were administered in the Emergency Department. See MAR. Independent interpretation of the following test(s) in the Emergency Department Radiology Department Ultrasound: My interpretation is vag probe , right flank. Test considered but Not performed: MRI: no mri pelvis. Historians other than the Patient: Spouse/Significant Other: well informed. Care significantly affected by the following chronic conditions: Hypertension, Obesity, kidney stones, gallstones. 08/07 09:26 Order name: Abo/rh Typing; Complete Time: 10:30 [facility] 08/07 09:26 Order name: Basic Metabolic Panel; Complete Time: 10:30 [facility] 08/07 09:26 Order name: CBC with Diff; Complete Time: 10:30 [facility] 08/07 09:26 Order name: Test, Urine; Complete Time: 10:56 [facility] 08/07 09:26 Order name: Quantitative Hcg; Complete Time: 10:30 [facility] 08/07 09:26 Order name: Urinalysis w/ reflexes; Complete Time: 10:56 [facility] 08/07 09:26 Order name: US Transvaginal Ob [facility] 08/07 09:34 Order name: US Rp Exam Limited: right renal [facility] 08/07 09:26 Order name: IV Saline Lock; Complete Time: 09:51 [place] 08/07 09:26 Order name: Labs collected and sent; Complete Time: :51 [facility] 08/07 09:26 Order name: NPO; Complete Time: : kayden Administered Medications: 09:51 Drug: NS 0.9% IV 1000 ml IV at 1 bolus Per protocol; 1000 mL bolus Route: IV; Rate: 1 kc6 bolus; Site: right antecubital; 11:09 Follow up: Response: No adverse reaction; IV Status: Completed infusion; IV Intake: kc6 1000ml Disposition Summary: 08/08/23 10:57 Discharge Ordered Notes: Location: Home kayden Problem: new kayden Symptoms: have improved kayden Condition: Stable kayden Diagnosis - Less than 8 weeks gestation of kayden - Hemorrhage in early , unspecified kayden Followup: kayden - With: Private Physician - When: 2 - 3 days - Reason: Recheck today's complaints, Continuance of care, Re-evaluation by your physician Followup: kayden - With: Shelbie Parham MD - When: 2 - 3 days - Reason: Recheck today's complaints, Re-evaluation by your physician Discharge Instructions: - Discharge Summary Sheet kayden - Ectopic kayden - Care kayden - Threatened Miscarriage kayden - Vaginal Bleeding During , First Trimester kayden - Ectopic , [id number] kayden Forms: - Medication Reconciliation Form kayden - Antibiotic Education kayden - Prescription Opioid Use kayden - Patient Portal Instructions kayden - Leadership Thank You Letter kayden Signatures: Dispatcher [employer] Adolfo Olivier MD MD cha Baxter, Heather, RN RN Yaneth Green RN RN kc6 Corrections: (The following items were deleted from the chart) 09:27 ABO/RH TYPING+BB.LAB.BRZ ordered. EDMS EDMS 09: 09:27 BASIC METABOLIC PANEL+C.LAB.BRZ ordered. EDMS EDMS : 09:27 CBC+H.LAB.BRZ ordered. EDMS EDMS : 09:27 Test, Urine+UC.LAB.BRZ ordered. EDMS EDMS : 09:27 QUANTITATIVE HCG+C.LAB.BRZ ordered. EDMS EDMS 09:27 Urinalysis+U.LAB.BRZ ordered. EDMS EDMS
--- NOTE | 2023-08-08 10:57 | ER ---
Nurse's Notes [facility] [place] Name: Phoebe Romano Age: 37 yrs Sex: Female : 1985 Arrival Date: 08/08/2023 Time: 09:21 Bed 13 Private MD: Diagnosis: Less than 8 weeks gestation of ;Hemorrhage in early , unspecified Presentation: 08/07 09:30 Chief complaint: Nausea, right sided abdominal pain, spotty vaginal bleeding, and hb positive test this morning. Coronavirus screen: At this time, the client does not indicate any symptoms associated with coronavirus-19. Ebola Screen: No symptoms or risks identified at this time. Initial Sepsis Screen: Does the patient meet any 2 criteria? No. Patient's initial sepsis screen is negative. Does the patient have a suspected source of infection? No. Patient's initial sepsis screen is negative. Risk Assessment: Do you want to hurt yourself or someone else? Patient reports no desire to harm self or others. Onset of symptoms was August 08, 2023. 09:30 Method Of Arrival: Ambulatory hb 09:30 Acuity: JES 3 hb Triage Assessment: 09:58 General: Appears in no apparent distress. Behavior is calm, cooperative. Pain: Pain hb currently is 4 out of 10 on a pain scale. Neuro: Level of Consciousness is awake, alert, obeys commands, Oriented to person, place, time, situation. Cardiovascular: Patient's skin is warm and dry. Rhythm is regular. Respiratory: Respiratory effort is even, unlabored, Respiratory pattern is regular, symmetrical. GI: Reports lower abdominal pain, nausea. : Reports vaginal bleeding that is spotty. 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 - Infectious Disease History:: Denies. - Social history:: Smoking status: Patient denies any tobacco usage or history of. Screenin:51 [facility] ED Fall Risk Assessment (Adult) History of falling in the last 3 months, kc6 including since admission No falls in past 3 months (0 pts) Confusion or Disorientation No (0 pts) Intoxicated or Sedated No (0 pts) Impaired Gait No (0 pts) Mobility Assist Device Used No (0 pt) Altered Elimination No (0 pt) Score/Fall Risk Level 0 - 2 = Low Risk. Abuse screen: Denies threats or abuse. Denies injuries from another. Nutritional screening: No deficits noted. Tuberculosis screening: No symptoms or risk factors identified. Assessment: 09:51 General: Appears in no apparent distress. comfortable, well groomed, well developed, kc6 Behavior is calm, cooperative, appropriate for age. Pain: Complains of pain in suprapubic area Quality of pain is described as crampy. Neuro: Level of Consciousness is awake, alert, obeys commands, Oriented to person, place, time, situation, Appropriate for age. Cardiovascular: Capillary refill < 3 seconds. Respiratory: Airway is patent Trachea midline Respiratory effort is even, unlabored, Respiratory pattern is regular, symmetrical. GI: Abdomen is flat, non-distended, Bowel sounds present X 4 quads. Abd is soft and non tender X 4 quads. : Reports cramping, vaginal bleeding that is spotty. EENT: No signs and/or symptoms were reported regarding the EENT system. Derm: No signs and/or symptoms reported regarding the dermatologic system. Skin is intact, is healthy with good turgor, Skin is pink, warm \T\ dry. Musculoskeletal: No signs and/or symptoms reported regarding the musculoskeletal system. Circulation, motion, and sensation intact. Capillary refill < 3 seconds, Range of motion: intact in all extremities. 10:51 Reassessment: Patient appears in no apparent distress at this time. No changes from kc6 previously documented assessment. Patient and/or family updated on plan of care and expected duration. Pain level reassessed. Patient is alert, oriented x 3, equal unlabored respirations, skin warm/dry/pink. Vital Signs: 09:30 BP 134 / 94; Pulse 85; Resp 16; Temp 97.6(TE); Pulse Ox 100% on R/A; Weight 97.52 kg; hb Height 5 ft. 6 in. ; Pain 4/10; 11:09 BP 114 / 88; Pulse 71; Resp 18 S; Pulse Ox 99% on R/A; kc6 09:30 Body Mass Index 34.70 (97.52 kg, 167.64 cm) hb 09:30 Pain Scale: Adult hb ED Course: 09:24 Patient arrived in ED. mg5 09:26 Adolfo Espinosa MD is Attending Physician. kayden 09:27 Yaneth Green, RN is Primary Nurse. kc6 09:51 Inserted saline lock: 20 gauge in right antecubital area, using aseptic technique. kc6 Blood collected. 09:51 Patient has correct armband on for positive identification. Bed in low position. Call kc6 light in reach. Side rails up X 1. Adult w/ patient. Client placed on continuous cardiac and pulse oximetry monitoring. NIBP monitoring applied. Pillow given. 09:52 Triage completed. hb 10:38 US Transvaginal Ob In Process Unspecified. EDMS 10:38 US Rp Exam Limited: right renal In Process Unspecified. EDMS 10:57 Shelbie Parham MD is Referral Physician. kayden 11:38 No provider procedures requiring assistance completed. IV discontinued, intact, kc6 bleeding controlled, No redness/swelling at site. Pressure dressing applied. Administered Medications: 09:51 Drug: NS 0.9% IV 1000 ml IV at 1 bolus Per protocol; 1000 mL bolus Route: IV; Rate: 1 kc6 bolus; Site: right antecubital; 11:09 Follow up: Response: No adverse reaction; IV Status: Completed infusion; IV Intake: kc6 1000ml Medication: 11:38 VIS not applicable for this client. kc6 Intake: 11:09 IV: 1000ml; Total: 1000ml. kc6 Outcome: 10:57 Discharge ordered by . kayden 11:38 Discharged to home ambulatory, with significant other, kc6 11:38 Condition: good 11:38 Discharge instructions given to patient, significant other, Instructed on discharge instructions, follow up and referral plans. Demonstrated understanding of instructions, follow-up care, 11:38 Patient left the ED. kc6 Signatures: Dispatcher [employer] EDKS Adolfo Espinosa MD MD cha Baxter, Heather, RN RN hb Yaneth Green, RN RN kc6 Iveth Escobar mg5
--- NOTE | 2023-08-08 11:29 | RAD REPORT ---
EXAM DESCRIPTION: US - Transvaginal OB - 08/08/2023 10:36 am CLINICAL HISTORY: ABD CRAMPING, COMPARISON: OBSTETRICAL COMPLETE dated 04/03/2011; Renal Ultrasound-Limited dated 08/08/2023 TECHNIQUE: Sonographic grayscale and color flow images of a first-trimester were obtained through transvaginal approach. FINDINGS: LMP: 07/21/2023. Uterus is slightly bulky at the fundus, measuring 7.9 cm in length, without a discrete myometrial les ion. Endometrial stripe measures 5 mm in thickness. No evidence of an intrauterine . Small naboth conchis cysts noted. Adjacent multiple cysts within the left ovary versus a septated complex cystic lesion, the left ovary overall measures 3.8 x 3.4 x 2.6 cm. The largest cystic component measures up to 2 cm. The right ova ry measures 3.0 x 1.9 x 1.8 cm, without dominant follicles. No suspicious adnexal abnormalities other delgado. Trace pelvic free fluid. IMPRESSION: 1. No extrauterine or intrauterine identified. Clinical correlation, correlati on with serial beta HCG trend, and consideration of short-term follow-up ultrasound in 7-10 days, are recommended, to re-evaluate for a nonviable . 2. Complex septated cystic lesion identified within the left ovary, versus multiple adjacent dominant cysts or follicles. This can be also re-evaluated on repeat pelvic ultrasound.
--- NOTE | 2023-08-08 11:31 | RAD REPORT ---
EXAM DESCRIPTION: US - Renal Ultrasound-Limited - 08/08/2023 10:42 am CLINICAL HISTORY: PAIN COMPARISON: Abdomen Exam Limited dated 12/17/2020; Abdomen Pelvis W Contrast dated 04/28/2019; Pelvi s Wo Cont dated 02/11/2023 TECHNIQUE: Sonographic grayscale and color flow images of the the right kidney were obtained. FINDINGS: Right kidneys is normal in size, shape, and echotexture. The right kidney measures 10.6 cm in length. No hydronephrosis, focal mass, or echogenic calculi. IMPRESSION: No hydronephrosis or echogenic calculi. No other right renal parenchymal abnormality is detected.
[2023-08-08 11:54] VITALS: BP 114/88; TEMP 97.6; O2SAT 99
== END 2023-08-08 11:38 | disposition home or self-care (01) ==
LOC: ER 09:21
DX: O20.9 Hemorrhage in early pregnancy, unspecified (principal); O16.1 Unspecified maternal hypertension, first trimester; Z3A.01 Less than 8 weeks gestation of pregnancy; Z91.048 Other nonmedicinal substance allergy status
CPT/HCPCS: 36415; 76775; 76817; 80048; 81001; 81025; 84702; 85025; 86900; 86901; 96360; 99284

== ENCOUNTER 2024-04-08 16:41 | Emergency (ER) | payer BC ==
[2011-09-01 00:17] VITALS: BP 141/95
--- NOTE | 2024-04-08 17:18 | ER ---
Nurse's Notes [facility] Name: Phoebe Romano Age: 38 yrs Sex: Female : 1985 Arrival Date: 04/08/2024 Time: 16:41 Bed Waiting Private MD: Diagnosis: ED Course: 04/08 16:44 Patient arrived in ED. ra3 16:51 Adolfo Bruno PA is PHCP. cp 16:51 Sloan Beatty MD is Attending Physician. cp Administered Medications: No medications were administered Outcome: 17:17 Patient left the ED. ld1 Signatures: Adolfo Bruno PA PA cp Sims, Lauren, RN RN ld1 Beatris Jacobo ra3
--- NOTE | 2024-04-09 17:18 | EDPHYS ---
Physician Documentation [facility] Name: Phoebe Romano Age: 38 yrs Sex: Female : 1985 Arrival Date: 04/08/2024 Time: 16:41 Bed Waiting Private MD: ED Physician Sloan Beatty MDM: 04/08 18:00 ED course: patient left prior to being seen by provider. cp Administered Medications: No medications were administered Disposition Summary: 04/08/24 17:17 Eloped Notes: Disposition: Before Triage ld1 Reason: unknown ld1 Signatures: Adolfo Bruno PA PA cp Elma Shrestha RN RN ld1
== END 2024-04-08 17:17 | disposition left against medical advice (07) ==
LOC: ER 16:41
DX: Z02.9 Encounter for administrative examinations, unspecified (principal)

== ENCOUNTER 2024-04-20 15:01 | Emergency (ER) | payer BC ==
[2024-04-20 16:05] LABS: Specific Gravity 1.022 (1.005-1.030)
[2024-04-20 16:25] LABS: Specific Gravity 1.022 (1.005-1.030); Sqamous Epithelial <5 /HPF (None Seen); Urine Bacteria None Seen /HPF (<20); Urine Bilirubin NEGATIVE (Negative); Urine Blood Negative (Negative); Urine Clarity Extremely Turbid (Clear); Urine Color Light-Orange (Yellow); Urine Crystals Unidentified Moderate /HPF (None Seen); Urine Culture Reflex Order REFLEXED; Urine Glucose NEGATIVE (Negative); Urine Ketones NEGATIVE (Negative); Urine Micro Reflex YN NO BILL MICROSCOPIC; Urine Mucus Slight /HPF (None Seen); Urine Nitrite NEGATIVE (Negative); Urine Protein NEGATIVE (Negative); Urine RBC <5 /HPF (None Seen); Urine Urobilinogen 1+ (Normal); Urine WBC 20-50 /HPF (<5); Urine WBC Clump Moderate /HPF (None Seen); Urine pH 7.5 (5.0-7.0)
--- NOTE | 2024-04-20 16:29 | RAD REPORT ---
EXAM: Transvaginal OB HISTORY: ABD PAIN COMPARISON: None TECHNIQUE: Multiple grayscale and color Doppler images were obtained in a transvaginal pelvic ultraso und. Spectral analysis of the Doppler waveforms of the ovaries were performed. FINDINGS: UTERUS: There is an intrauterine gestational sac. This contains a yolk sac and pole. Intramural fibroid measuring 2.8 x 2.1 cm. [place]-rump length: 1 cm which estimates gestational age at 7 week 0 day. A heart rate is detected at 136 bpm. No evidence of subchorionic hemorrhage. No free fluid is seen in the pelvis. RIGHT OVARY: Normal flow without focal mass. LEFT OVARY: Left ovarian cyst measuring 3.7 x 3.5 cm which is likely physiologic. This can be reasses sed on follow-up. Vascular flow is present. IMPRESSION: Single live intrauterine with estimated age of 7 week 0 day. Bilateral ovarian blood flow.
[2024-04-20 16:47] LABS: Absolute Basophils 0.1 K/uL (0-0.5); Absolute Eosinophils 0.1 K/uL (0-0.5); Absolute Lymphocytes (CBC) 2.3 K/uL (0.7-4.9); Absolute Monocytes 0.7 K/uL (0.1-1.3); Absolute Neutrophil 6.5 K/uL (1.8-8.0); Basophils % 0.6 % (0-1.3); Eosinophils % 1.3 % (0-4.4); Hematocrit 33.4 % (36.0-45.0); Hemoglobin 11.4 g/dL (12.0-15.0); Lymphocytes % 24.1 % (15.3-44.8); MCH 29.1 pg (27.0-35.0); MCHC 34.2 g/dL (32.0-36.0); MCV 84.9 fL (80-100); MPV 8.1 fL (7.6-11.3); Monocytes % 6.9 % (3.3-12.3); Neutrophils % 67.1 % (41.7-73.7); Nucleated Red Blood Cells % 0.1 % (0-0); Platelets 341 thou/uL (152-406); RBC Red Blood Cell Count 3.93 M/uL (3.86-4.86); Red Cell Distribution Width 14.4 % (12.1-15.2)
[2024-04-20 17:24] LABS: Anion Gap 5.4 mEq/L (5.0-15.0); Potassium 3.4 mEq/L (3.5-5.1)
--- NOTE | 2024-04-20 18:09 | ER ---
Nurse's Notes [facility] [place] Name: Phoebe Romano Age: 38 yrs Sex: Female : 1985 Arrival Date: 04/20/2024 Time: 15:01 Bed 10 Private MD: Diagnosis: UTI/ Urinary tract infection, site not specified;Lower abdominal pain, unspecified;Less than 8 weeks gestation of Presentation: 04/20 15:22 Chief complaint: Patient states: abdominal swelling for 30 minutes, 7wks preg, nausea, ko1 diarrhea, shortness of breath. Coronavirus screen: At this time, the client does not indicate any symptoms associated with coronavirus-19. Ebola Screen: No symptoms or risks identified at this time. Initial Sepsis Screen: Does the patient meet any 2 criteria? No. Patient's initial sepsis screen is negative. Does the patient have a suspected source of infection? No. Patient's initial sepsis screen is negative. Risk Assessment: Do you want to hurt yourself or someone else? Patient reports no desire to harm self or others. Onset of symptoms was April 20, 2024. 15:22 Method Of Arrival: Ambulatory ko1 15:22 Acuity: JES 3 ko1 Triage Assessment: 15:25 General: Appears uncomfortable, Behavior is calm, cooperative, appropriate for age. ko1 Pain: Complains of pain in abdomen. GI: Reports bloating, diarrhea, nausea. Historical: - Allergies: 15:25 Tape; ko1 - PMHx: 15:25 GALLSTONES; Gout; Hashimotos; Hypertension; Kidney stones; ko1 - PSHx: 15:25 hernia repair; Tonsillectomy; tubal ligation; Tubal Ligation Reversal; ko1 - Immunization history:: Adult Immunizations unknown. - Infectious Disease History:: Denies. - Social history:: Smoking status: Patient denies any tobacco usage or history of. Screenin:43 [facility] ED Fall Risk Assessment (Adult) History of falling in the last 3 months, ph including since admission No falls in past 3 months (0 pts) Confusion or Disorientation No (0 pts) Intoxicated or Sedated No (0 pts) Impaired Gait No (0 pts) Mobility Assist Device Used No (0 pt) Altered Elimination No (0 pt) Score/Fall Risk Level 0 - 2 = Low Risk Oriented to surroundings, Maintained a safe environment, Hourly rounding (assess needs \T\ fall precautionary measures) done. Abuse screen: Denies threats or abuse. Denies injuries from another. Nutritional screening: No deficits noted. Tuberculosis screening: No symptoms or risk factors identified. Assessment: 17:42 General: Appears in no apparent distress. Behavior is calm, cooperative, appropriate ph for age. Pain: Complains of pain in left lower quadrant and right lower quadrant. Neuro: Level of Consciousness is awake, alert, obeys commands, Oriented to person, place, time, situation. Cardiovascular: Capillary refill < 3 seconds in bilateral fingers Patient's skin is warm and dry. Respiratory: Airway is patent Respiratory effort is even, unlabored. GI: Bowel sounds present X 4 quads. Abd is soft X 4 quads Reports lower abdominal pain, diarrhea. Derm: Skin is pink, warm \T\ dry. Musculoskeletal: Circulation, motion, and sensation intact. Range of motion: intact in all extremities. Vital Signs: 15:22 BP 126 / 85; Pulse 72; Resp 18; Temp 97.2; Pulse Ox 100% ; ko1 18:21 BP 118 / 78; Pulse 76; Resp 18; Temp 97.5; Pulse Ox 98% on R/A; ph ED Course: 15:03 Patient arrived in ED. mr 15:05 Corey Muller MD is Attending Physician. rt 15:05 Attending Physician role handed off by Corey Muller MD ms3 15:05 Carlos Shrestha DO is Attending Physician. ms3 15:25 Triage completed. ko1 15:26 Arm band placed on right wrist. Patient placed in waiting room, Patient notified of ko1 wait time. 16:20 US Transvaginal Ob In Process Unspecified. EDMS 16:40 Abo/rh Typing Sent. bc6 16:40 Basic Metabolic Panel Sent. bc6 16:40 CBC with Diff Sent. bc6 16:40 Quantitative Hcg Sent. bc6 16:40 Initial lab(s) drawn, by me, sent to lab. Inserted saline lock: 20 gauge in right bc6 antecubital area, using aseptic technique. Blood collected. Flushed with 10 mL NS. 17:31 Rebeca Quiroz, RN is Primary Nurse. ph 17:44 Patient has correct armband on for positive identification. Bed in low position. Call ph light in reach. Side rails up X 1. Pulse ox on. NIBP on. Door closed. Noise minimized. Warm blanket given. Pillow given. 18:22 No provider procedures requiring assistance completed. IV discontinued, intact, ph bleeding controlled, No redness/swelling at site. Pressure dressing applied. Administered Medications: 18:21 Drug: Macrobid PO 100 mg PO once; administer with food Route: PO; ph 18:21 Follow up: Response: No adverse reaction ph Medication: 17:44 VIS not applicable for this client. ph Outcome: 18:08 Discharge ordered by . ms3 18:22 Discharged to home ambulatory, with significant other, ph 18:22 Condition: good 18:22 Discharge instructions given to patient, Instructed on discharge instructions, follow up and referral plans. medication usage, Demonstrated understanding of instructions, follow-up care, medications, Prescriptions given X 1, 18:22 Patient left the ED. ph Signatures: Dispatcher [employer] EDMS Juana Velazquez, Reg Reg mr Rebeca Quiroz RN RN ph Carlos Shrestha DO DO ms3 Nicole Dumont, ZANE RN ko1 Corey Muller MD MD rt Vikki Hoover bc6
--- NOTE | 2024-04-20 18:09 | EDPHYS ---
Physician Documentation [facility] Name: Phoebe Romnao Age: 38 yrs Sex: Female : 1985 Arrival Date: 04/20/2024 Time: 15:01 Bed 10 Private MD: ED Physician Carlos Shrestha HPI: 04/20 15:15 This 38 yrs old Female presents to ER via Unassigned with complaints of 7wks , ms3 Abdominal Swelling, Diarrhea, Dizziness. 15:15 Phoebe Romano is a 38-year-old female presenting to the Emergency Department with ms3 complaints of abdominal swelling and pain that began 30 min prior to arrival. The pain is primarily located in the lower abdomen. She rates the pain as a 7 out of 10. She reports the abdominal area becoming unusually large and firm. Phoebe is currently with her fifth , having had three full-term births and one previous miscarriage. She is seven weeks and recently had an ultrasound where the heartbeat was recorded at 119 bpm. There is no vaginal bleeding reported. She has a history of an underactive thyroid.. Historical: - Allergies: 15:25 Tape; ko1 - PMHx: 15:25 GALLSTONES; Gout; Hashimotos; Hypertension; Kidney stones; ko1 - PSHx: 15:25 hernia repair; Tonsillectomy; tubal ligation; Tubal Ligation Reversal; ko1 - Immunization history:: Adult Immunizations unknown. - Infectious Disease History:: Denies. - Social history:: Smoking status: Patient denies any tobacco usage or history of. ROS: 15:15 Constitutional: Negative for fever, and chills. Cardiovascular: Negative for chest ms3 pain, and palpitations. Respiratory: Negative for shortness of breath, cough, wheezing, and pleuritic chest pain, MS/Extremity: Negative for injury and deformity, Skin: Negative for injury, rash, and discoloration, 15:15 Abdomen/GI: Positive for abdominal pain, diarrhea, Exam: 15:15 Constitutional: This is a well developed, well nourished patient who is awake, alert, ms3 and in no acute distress. Cardiovascular: Regular rate and rhythm with a normal S1 and S2. No gallops, murmurs, or rubs. Normal PMI, no JVD. No pulse deficits. Respiratory: Lungs have equal breath sounds bilaterally, clear to auscultation and percussion. No rales, rhonchi or wheezes noted. No increased work of breathing, no retractions or nasal flaring. 15:15 Skin: Warm, dry with normal turgor. Normal color with no rashes, no lesions, and no evidence of cellulitis. 15:15 Abdomen/GI: Inspection: abdomen appears normal, Bowel sounds: normal, Palpation: moderate abdominal tenderness, in the right lower quadrant and left lower quadrant, Vital Signs: 15:22 BP 126 / 85; Pulse 72; Resp 18; Temp 97.2; Pulse Ox 100% ; ko1 18:21 BP 118 / 78; Pulse 76; Resp 18; Temp 97.5; Pulse Ox 98% on R/A; ph MDM: 15:15 Differential diagnosis: Nonspecific abd pain, viral gastroenteritis, UTI vs IUP. ms3 15:19 Medical Screening Exam initiated ms3 20:16 Data reviewed: vital signs, nurses notes, lab test result(s), radiologic studies, and ms3 as a result, I will discharge patient. I considered the following discharge prescriptions or medication management in the emergency department Medications were administered in the Emergency Department. See MAR. Counseling: I had a detailed discussion with the patient and/or guardian regarding the historical points, exam findings, and any diagnostic results supporting the discharge/admit diagnosis, lab results, radiology results, the need for outpatient follow up, to return to the emergency department if symptoms worsen or persist or if there are any questions or concerns that arise at home. ED course: Discussed labs, ultrasound, urinalysis with patient. Discussed transfer for MRI of abdomen with patient and her . They declined transfer at this time. Patient states she has an OB appointment in the morning and she will follow-up with her OB at that time. Return precautions discussed include worsening symptoms, fevers, or any other concerns. On reevaluation patient symptoms improved, patient is alert and oriented x 4, no apparent distress, nontoxic-appearing, speaking full sentences.. 04/20 15:15 Order name: Abo/rh Typing ms3 04/20 15:15 Order name: Basic Metabolic Panel; Complete Time: 17:36 ms3 04/20 15:15 Order name: CBC with Diff; Complete Time: 17:14 ms3 04/20 15:15 Order name: Test, Urine; Complete Time: 16:40 ms3 04/20 15:15 Order name: Quantitative Hcg; Complete Time: 17:36 ms3 04/20 15:15 Order name: Urinalysis W/Microscopic; Complete Time: 16:40 ms3 04/20 16:29 Order name: Urine Culture EDMS 04/20 15:15 Order name: US Transvaginal Ob; Complete Time: 16:40 ms3 04/20 15:15 Order name: IV Saline Lock; Complete Time: 16:40 ms3 04/20 15:15 Order name: Labs collected and sent; Complete Time: 16:40 ms3 04/20 15:15 Order name: NPO; Complete Time: 16:40 ms3 Administered Medications: 18:21 Drug: Macrobid PO 100 mg PO once; administer with food Route: PO; ph 18:21 Follow up: Response: No adverse reaction ph Disposition Summary: 04/20/24 18:08 Discharge Ordered Notes: Location: Home ms3 Condition: Stable ms3 Diagnosis - UTI/ Urinary tract infection, site not specified ms3 - Lower abdominal pain, unspecified ms3 - Less than 8 weeks gestation of ms3 Followup: ms3 - With: Private Physician - When: 1 - 2 days - Reason: Recheck today's complaints Discharge Instructions: - Discharge Summary Sheet ms3 - Urinary Tract Infection, Adult ms3 Forms: - Medication Reconciliation Form ms3 - Antibiotic Education ms3 - Prescription Opioid Use ms3 - Patient Portal Instructions ms3 - Leadership Thank You Letter ms3 Prescriptions: - Macrobid 100 mg Oral capsule - take 1 capsule ORAL route every 12 hours for 7 days; 14 capsule; Refills: 0, ms3 Product Selection Permitted Signatures: Dispatcher [employer] EDRebeca Peraza, RN RN ph Carlos Shrestha DO DO ms3 Nicole Dumont RN RN ko1 Corrections: (The following items were deleted from the chart) 15:15 15:15 ABO/RH TYPING+BB.LAB.BRZ ordered. EDMS EDMS 15:15 15:15 BASIC METABOLIC PANEL+C.LAB.BRZ ordered. EDMS EDMS 15:15 15:15 CBC+H.LAB.BRZ ordered. EDMS EDMS 15:16 15:15 Test, Urine+UC.LAB.BRZ ordered. EDMS EDMS 15:16 15:15 QUANTITATIVE HCG+C.LAB.BRZ ordered. EDMS EDMS 15:16 15:15 Urinalysis W/Microscopic+U.LAB.BRZ ordered. EDMS EDMS 15:16 15:16 Transvaginal Ob+US.RAD.BRZ ordered. EDMS EDMS
[2024-04-20] MEDS ORDERED: NITROFURAN MACRO 100 MG CAP PO ONE (18:12)
[2024-04-20 19:24] VITALS: BP 118/78; TEMP 97.5; O2SAT 98
== END 2024-04-20 18:22 | disposition home or self-care (01) ==
LOC: ER 15:01
DX: O23.41 Unspecified infection of urinary tract in pregnancy, first trimester (principal); Z3A.01 Less than 8 weeks gestation of pregnancy
CPT/HCPCS: 36415; 76817; 80048; 81001; 81025; 84702; 85025; 86900; 86901; 87086; 87088

== ENCOUNTER 2024-04-25 07:40 | Emergency (ER) | payer BC ==
[2024-04-25 08:11] LABS: Specific Gravity 1.017 (1.005-1.030)
[2024-04-25 08:14] LABS: Specific Gravity 1.017 (1.005-1.030); Sqamous Epithelial <5 /HPF (None Seen); Urine Bacteria <20 /HPF (<20); Urine Bilirubin NEGATIVE (Negative); Urine Blood 2+ (Negative); Urine Clarity Extremely Turbid (Clear); Urine Color Yellow (Yellow); Urine Culture Reflex Order NOT NEEDED; Urine Glucose NEGATIVE (Negative); Urine Ketones NEGATIVE (Negative); Urine Microscopic Reflex YN ORDER UMIC; Urine Mucus Slight /HPF (None Seen); Urine Nitrite NEGATIVE (Negative); Urine Protein NEGATIVE (Negative); Urine RBC None Seen /HPF (None Seen); Urine Urobilinogen Normal (Normal); Urine WBC None Seen /HPF (<5)
[2024-04-25 08:28] LABS: Absolute Eosinophils 0.1 K/uL (0-0.5); Absolute Lymphocytes (CBC) 1.7 K/uL (0.7-4.9); Absolute Monocytes 0.6 K/uL (0.1-1.3); Absolute Neutrophil 6.3 K/uL (1.8-8.0); Basophils % 0.5 % (0-1.3); Hematocrit 33.6 % (36.0-45.0); Hemoglobin 11.3 g/dL (12.0-15.0); Lymphocytes % 19.4 % (15.3-44.8); MCH 28.7 pg (27.0-35.0); MCHC 33.7 g/dL (32.0-36.0); MCV 85.2 fL (80-100); MPV 8.2 fL (7.6-11.3); Monocytes % 6.4 % (3.3-12.3); Neutrophils % 72.7 % (41.7-73.7); Nucleated Red Blood Cells % 0.2 % (0-0); Platelets 341 thou/uL (152-406); RBC Red Blood Cell Count 3.95 M/uL (3.86-4.86); Red Cell Distribution Width 14.6 % (12.1-15.2)
[2024-04-25 09:00] LABS: Anion Gap 8.4 mEq/L (5.0-15.0); Potassium 3.4 mEq/L (3.5-5.1)
--- NOTE | 2024-04-25 09:02 | RAD REPORT ---
EXAMINATION: 1St Trimest Single 1St Fetus COMPARISON: None. HISTORY: VAGINAL BLEEDING TECHNIQUE: Real-time ultrasound was performed through the pelvis. A transvaginal scan was performed t o better visualize the intrauterine contents and adnexa. FINDINGS: There is a single living intrauterine . Cardiac activity measured 160 BPM. There is no visible subchorionic hemorrhage. Left ovary appears normal with normal Doppler flow. Right ovary excluded by bowel gas. There is no free fluid in the cul-de-sac. Measurements and Calculations: [place] rump length 1.7 cm, consistent with a sonographic age of 8 weeks, 1 days. Estimated date of de livery is 12/04/2024 IMPRESSION: Single living intrauterine , with a composite sonographic age of 8 weeks, 1 days.
--- NOTE | 2024-04-25 09:12 | EDPHYS ---
Physician Documentation [facility] [place] Name: Phoebe Romano Age: 38 yrs Sex: Female : 1985 Arrival Date: 04/25/2024 Time: 07:40 Bed 14 Private MD: ED Physician Connor Arenas HPI: 04/25 08:09 This 38 yrs old Female presents to ER via Ambulatory with complaints of Vaginal rn Bleeding - 8weeks with cramping. 08:09 The patient presents with vaginal bleeding that is light. Onset: The symptoms/episode rn began/occurred this morning. Modifying factors: The symptoms are alleviated by nothing, the symptoms are aggravated by nothing. Associated signs and symptoms: Pertinent positives: cramping, Pertinent negatives: fever. Severity of symptoms: At their worst the symptoms were mild, in the emergency department the symptoms are unchanged. The patient has experienced a previous episode. Patient is a with 1 miscarriage in the past who presents with vaginal bleeding. Just evaluated this past week and had normal ultrasound. Patient has had vaginal bleeding early in this and is being watched by her OB doctor. Denies any trauma. Is being treated for urinary tract infection currently and still taking antibiotics. Reports mild suprapubic abdominal cramping. No fever or chills.. BEDSPREAD CUTTER HAND: 08:23 5, Full Term 3, Premature 0, 1, Living 4, unknown kc6 Historical: - Allergies: 07:48 Tape; ss - PMHx: 07:48 GALLSTONES; Gout; Hashimotos; Hypertension; Kidney stones; ss - PSHx: 07:48 hernia repair; Tonsillectomy; tubal ligation; Tubal Ligation Reversal; ss - Immunization history:: Adult Immunizations up to date. - Infectious Disease History:: Denies. - Family history:: not pertinent. - Hospitalizations: : No recent hospitalization is reported. - Social history:: Smoking status: unknown. ROS: 08:09 Constitutional: Negative for fever, chills, and weight loss, Cardiovascular: Negative rn for chest pain, palpitations, and edema, Respiratory: Negative for shortness of breath, cough, wheezing, and pleuritic chest pain, Abdomen/GI: Negative for diarrhea, and constipation, : Positive for vaginal bleeding Exam: 08:09 Constitutional: This is a well developed, well nourished patient who is awake, alert, rn and in no acute distress. Cardiovascular: Regular rate and rhythm. No pulse deficits. Respiratory: No increased work of breathing, no retractions or nasal flaring. Abdomen/GI: Soft, non-tender Vital Signs: 07:56 BP 134 / 95; Pulse 82; Resp 15; Temp 98.8; Pulse Ox 100% ; Weight 78.02 kg; Height 5 ss ft. 6 in. ; Pain 5/10; 09:22 BP 126 / 88; Pulse 85; Resp 18 S; Pulse Ox 100% on R/A; kc6 07:56 Body Mass Index 27.76 (78.02 kg, 167.64 cm) ss 07:56 Pain Scale: Adult ss MDM: 07:48 Medical Screening Exam initiated rn 09:10 Differential diagnosis: nonspecific abdominal pain, urinary tract infection. Data rn reviewed: vital signs, nurses notes, lab test result(s), radiologic studies, ultrasound, and as a result, I will discharge patient. Counseling: I had a detailed discussion with the patient and/or guardian regarding the historical points, exam findings, and any diagnostic results supporting the discharge/admit diagnosis, lab results, radiology results, the need for outpatient follow up, to return to the emergency department if symptoms worsen or persist or if there are any questions or concerns that arise at home. Special discussion: I discussed with the patient/guardian in detail that at this point there is no indication for admission to the hospital. It is understood, however, that if the symptoms persist or worsen the patient needs to return immediately for re-evaluation. Based on the history and exam findings, there is no indication for further emergent testing or inpatient evaluation. I discussed with the patient/guardian the need to see the OB Gyne specialist for further evaluation of the symptoms. ED course: No abnormal findings and ultrasound. Beta-hCG 77,000. Urine looks improved compared to recent testing. Will continue antibiotics. Patient now states that she had sex last night, likely sex related.. 04/25 07:48 Order name: Basic Metabolic Panel; Complete Time: : rn 04/25 07:48 Order name: CBC with Diff; Complete Time: : rn 04/25 07:48 Order name: Test, Urine; Complete Time: rn 04/25 07:48 Order name: Quantitative Hcg; Complete Time: : rn 04/25 07:48 Order name: Urinalysis w/ reflexes; Complete Time: 09:07 rn 04/25 08:55 Order name: 1St Trimest Single 1St Fetus; Complete Time: 09:07 EDMS 04/25 07:48 Order name: IV Saline Lock; Complete Time: 08:20 rn 04/25 07:48 Order name: Labs collected and sent; Complete Time: 08:20 rn 04/25 07:48 Order name: NPO; Complete Time: 08:20 rn Administered Medications: No medications were administered Disposition Summary: 04/25/24 09:11 Discharge Ordered Notes: Location: Home rn Problem: new rn Symptoms: have improved rn Condition: Stable rn Diagnosis - Abnormal uterine and vaginal bleeding, unspecified rn - Threatened rn Followup: rn - With: Private Physician - When: As needed - Reason: Recheck today's complaints, Re-evaluation by your physician Discharge Instructions: - Discharge Summary Sheet rn - Threatened Miscarriage rn - Vaginal Bleeding During , First Trimester rn Forms: - Medication Reconciliation Form rn - Antibiotic transitions rn care coordinator - Prescription Opioid Use rn - Patient Portal Instructions rn - Leadership Thank You Letter rn Signatures: Dispatcher [employer] EDMS Connor Arenas MD MD rn Blanchard, Shelby, RN RN ss Campbell, Kaitlyn RN RN kc6 Corrections: (The following items were deleted from the chart) 07:49 07:49 BASIC METABOLIC PANEL+C.LAB.BRZ ordered. EDMS EDMS 07:49 07:49 CBC+H.LAB.BRZ ordered. EDMS EDMS 07:49 07:49 Test, Urine+UC.LAB.BRZ ordered. EDMS EDMS 07:49 07:49 QUANTITATIVE HCG+C.LAB.BRZ ordered. EDMS EDMS 07:49 07:49 Urinalysis+U.LAB.BRZ ordered. EDMS EDMS 07:51 07:49 ABO/RH TYPING+BB.LAB.BRZ ordered. EDMS EDMS 08:55 07:49 Transvaginal Ob+US.RAD.BRZ ordered. EDMS EDMS
--- NOTE | 2024-04-25 09:12 | ER ---
Nurse's Notes [facility] Name: Phoebe Romano Age: 38 yrs Sex: Female : 1985 Arrival Date: 04/25/2024 Time: 07:40 Bed 14 Private MD: Diagnosis: Abnormal uterine and vaginal bleeding, unspecified;Threatened Presentation: 04/25 07:56 Chief complaint: Patient states: Vaginal bleeding that began this morning. Pt reports ss she is 8 weeks . Coronavirus screen: Client denies travel out of the [place] in the last 14 days. Ebola Screen: Patient denies exposure to infectious person. Patient denies travel to an Ebola-affected area in the 21 days before illness onset. Initial Sepsis Screen: Does the patient meet any 2 criteria? No. Patient's initial sepsis screen is negative. Does the patient have a suspected source of infection? No. Patient's initial sepsis screen is negative. Risk Assessment: Do you want to hurt yourself or someone else? Patient reports no desire to harm self or others. Onset of symptoms was April 25, 2024. 07:56 Method Of Arrival: Ambulatory ss 07:56 Acuity: JES 3 ss BAG VALVER: 08:23 5, Full Term 3, Premature 0, 1, Living 4, unknown kc6 Historical: - Allergies: 07:48 Tape; ss - PMHx: 07:48 GALLSTONES; Gout; Hashimotos; Hypertension; Kidney stones; ss - PSHx: 07:48 hernia repair; Tonsillectomy; tubal ligation; Tubal Ligation Reversal; ss - Immunization history:: Adult Immunizations up to date. - Infectious Disease History:: Denies. - Family history:: not pertinent. - Hospitalizations: : No recent hospitalization is reported. - Social history:: Smoking status: unknown. Screenin:21 [facility] ED Fall Risk Assessment (Adult) History of falling in the last 3 months, kc6 including since admission No falls in past 3 months (0 pts) Confusion or Disorientation No (0 pts) Intoxicated or Sedated No (0 pts) Impaired Gait No (0 pts) Mobility Assist Device Used No (0 pt) Altered Elimination No (0 pt) Score/Fall Risk Level 0 - 2 = Low Risk Oriented to surroundings, Maintained a safe environment, Educated pt \T\ family on fall prevention, incl call for assistance when getting out of bed. Abuse screen: Denies threats or abuse. Denies injuries from another. Nutritional screening: No deficits noted. Tuberculosis screening: No symptoms or risk factors identified. Assessment: 08:21 General: Appears in no apparent distress. comfortable, well groomed, well developed, kc6 Behavior is calm, cooperative, appropriate for age. Pain: Complains of pain in abdomen and pelvis Quality of pain is described as crampy, dull. Neuro: Level of Consciousness is awake, alert, obeys commands, Oriented to person, place, time, situation, Appropriate for age. Cardiovascular: Capillary refill < 3 seconds. Respiratory: Airway is patent Trachea midline Respiratory effort is even, unlabored, Respiratory pattern is regular, symmetrical. GI: Abdomen is round Bowel sounds present X 4 quads. Abd is soft X 4 quads Abdomen is tender to palpation in suprapubic area, right lower quadrant and left lower quadrant Reports lower abdominal pain, Patient currently denies diarrhea, nausea, vomiting. : Urine is blood tinged, Reports cramping, in right in left lower quadrant(s) vaginal bleeding that is bright red, with clots, heavy flow. EENT: No signs and/or symptoms were reported regarding the EENT system. Derm: No signs and/or symptoms reported regarding the dermatologic system. Skin is intact, is healthy with good turgor, Skin is pink, warm \T\ dry. Musculoskeletal: No signs and/or symptoms reported regarding the musculoskeletal system. Circulation, motion, and sensation intact. Range of motion: intact in all extremities. 09:22 Reassessment: Patient appears in no apparent distress at this time. No changes from kc6 previously documented assessment. Patient and/or family updated on plan of care and expected duration. Pain level reassessed. Patient is alert, oriented x 3, equal unlabored respirations, skin warm/dry/pink. Vital Signs: 07:56 BP 134 / 95; Pulse 82; Resp 15; Temp 98.8; Pulse Ox 100% ; Weight 78.02 kg; Height 5 ss ft. 6 in. ; Pain 5/10; 09:22 BP 126 / 88; Pulse 85; Resp 18 S; Pulse Ox 100% on R/A; kc6 07:56 Body Mass Index 27.76 (78.02 kg, 167.64 cm) ss 07:56 Pain Scale: Adult ss ED Course: 07:43 Patient arrived in ED. ra3 07:48 Connor Arenas MD is Attending Physician. rn 07:56 Arm band placed on right wrist. 07:58 Triage completed. 07:59 Yaneth Green, RN is Primary Nurse. kc6 08:20 Patient has correct armband on for positive identification. Placed in gown. Bed in low kc6 position. Call light in reach. Side rails up X 1. Pulse ox on. NIBP on. Door closed. Noise minimized. Lights dimmed. Warm blanket given. Pillow given. 08:20 Inserted saline lock: 20 gauge in right antecubital area, using aseptic technique. kc6 Blood collected. Flushed with 10 mL NS. Patient maintains SpO2 saturation greater than 95% on room air. 08:55 1St Trimest Single 1St Fetus In Process Unspecified. EDMS 09:23 No provider procedures requiring assistance completed. IV discontinued, intact, kc6 bleeding controlled, No redness/swelling at site. Pressure dressing applied. Administered Medications: No medications were administered Medication: 09:23 VIS not applicable for this client. kc6 Outcome: 09:11 Discharge ordered by . rn 09:23 Discharged to home ambulatory, with significant other, kc6 09:23 Condition: good 09:23 Discharge instructions given to patient, significant other, Instructed on discharge instructions, follow up and referral plans. Demonstrated understanding of instructions, follow-up care, 09:23 Patient left the ED. kc6 Signatures: Dispatcher [employer] EDMS Connor Arenas MD MD rn Blanchard, Shelby, RN RN Yaneth Green RN RN kc6 Alva, Ruby ra3
[2024-04-25 09:42] VITALS: TEMP 98.8; O2SAT 100
[2024-04-25 09:47] VITALS: BP 126/88
== END 2024-04-25 09:23 | disposition home or self-care (01) ==
LOC: ER 07:40
DX: O20.0 Threatened abortion (principal); Z3A.08 8 weeks gestation of pregnancy
CPT/HCPCS: 36415; 76801; 80048; 81001; 81025; 84702; 85025; 99284